=== PATIENT | female | born 1960 | race Hispanic/Latino ===

== ENCOUNTER 2022-07-16 22:33 | Inpatient (IN) | payer BC, OTHER ==
[2022-07-17] MEDS ORDERED: FUROSEMIDE 40 MG/4 ML INJ IV ONE (00:08)
[2022-07-17 00:10] LABS: Hematocrit 37.7 % (30.3-42.9); Hemoglobin 12.4 gm/dl (10.1-14.3); Mean Corpuscular HGB Conc 33 % (30-34); Mean Corpuscular Volume 91 fl (79-97); Platelet Count 385 K/mm3 (140-440); Red Blood Count 4.14 M/mm3 (3.65-5.03)
[2022-07-17 00:27] LABS: INR 0.93 (0.87-1.13)
--- NOTE | 2022-07-17 00:32 | XRay Report ---
CHEST 1 VIEW INDICATION / CLINICAL INFORMATION: Altered Mental Status STUDY TIME: 2337 COMPARISON: 02/06/2014 FINDINGS: SUPPORT DEVICES: None HEART / MEDIASTINUM: Cardiomegaly LUNGS / PLEURA: Prominent congestive changes and moderate interstitial pulmonary edema are now seen. No pneumothorax. ADDITIONAL FINDINGS: No significant additional findings. Signer Name: Elvis Osorio MD Signed: 07/17/2022 12:27 AM Workstation Name: [id number]
[2022-07-17 00:45] LABS: Band Neutrophils # (Manual) 0.4 K/mm3; Basophils % (Manual) 0 % (0.0-1.8); Platelet Estimate Consistent w Auto; Total Cells Counted 100
--- NOTE | 2022-07-17 01:51 | Cat Scan Report ---
CT head/brain wo con INDICATION / CLINICAL INFORMATION: 61 years Female; Altered Mental Status. TECHNIQUE: Routine CT head without contrast. All CT scans at this location are performed using CT dos e reduction for ALARA by means of automated exposure control. COMPARISON: None. FINDINGS: BRAIN / INTRACRANIAL CONTENTS: Small lacunar infarct is seen in the anterior gangliocapsular region o n the [id number] without diffusion imaging by MRI. Otherwise, no acute hemorrhage, mass effect, midline shift, hydrocephalus, or acute, large territori al infarct. No signs of significant atrophy or chronic infarct. There are moderate areas of decreased attenuation in the white matter of the cerebral hemispheres, as well as the gangliocapsular regions. These are nonspecific findings and may be related to microangio hiro (hypertension, diabetes, atherosclerosis), given the patient's age. CRANIOCERVICAL JUNCTION: No significant abnormality. ORBITS: No significant abnormality of visualized orbits. SINUSES / MASTOIDS: Visualized paranasal sinuses and mastoid air cells are essentially clear. ADDITIONAL FINDINGS: Subcutaneous soft tissue swelling seen in the posterior parietal region on the l eft. No signs of underlying calvarial fracture. Mild to moderate temporomandibular joint disease noted on the left. Mild seen on the right. Atherosclerotic disease is seen in the anterior circulation. IMPRESSION: 1. No focal mass, intracranial hemorrhage, hydrocephalus, or acute, large territorial infarct. Follow -up with diffusion imaging by MRI, as clinically warranted. Signer Name: Marshall Menjivar MD, III Signed: 07/17/2022 1:46 AM Workstation Name: [id number]
[2022-07-17 04:03] LABS: Alanine Aminotransferase 19 units/L (7-56); Blood Urea Nitrogen 10 mg/dL (7-17); Calcium 8.7 mg/dL (8.4-10.2); Hemolysis Index 15
[2022-07-17 04:04] LABS: BUN/Creatinine Ratio 14
--- NOTE | 2022-07-17 04:45 | Emergency Department Report ---
ED General Adult HPI - General Chief complaint: Fall Stated complaint: FALL/ALEXIS PUI?: No Time Seen by Provider: 07/16/22 23:18 Source: EMS Mode of arrival: Stretcher Limitations: No Limitations - History of Present Illness Initial comments: EMS WENT OUT FOR PT WITH A UNWITNESSED GROUND LEVEL FALL, PT ETOH, ON BLOOD THINNERS, PT HAS HEMATOMA TO THE BACK OF HEAD, BLEEDING CONTROLLED, PT IN CARE OF FAMILY, FAMILY DID NOT WITNESS FALL, UNKNOWN LOC, PT AAOX4, PT WAS 76% RA, EMS PLACED PT ON NRB 15L NOW AT 96% -: Sudden, hour(s) Location: head Severity scale (0 -10): 2 Quality: aching Consistency: constant Associated Symptoms: denies: denies other symptoms, confusion, chest pain, cough Treatments Prior to Arrival: none - Related Data Previous Rx's Medication Instructions Recorded Last Taken Type ALBUTEROL NEB's [Proventil 0.083% 2.5 mg IH TID PRN #30 neb 02/07/14 Unknown Rx NEBS] DOXYCYCLINE Hyclate [Vibramycin 100 mg PO BID #14 capsule 02/07/14 Unknown Rx CAP] oxyCODONE [roxiCODONE] 5 mg PO Q6H PRN #7 tablet 02/07/14 Unknown Rx predniSONE [Deltasone] 20 mg PO BID #8 tablet 02/07/14 Unknown Rx Allergies Allergy/AdvReac Type Severity Reaction Status Date / Time cephalexin monohydrate Allergy Unknown Verified 02/06/14 23:10 [From Keflex] Sulfa (Sulfonamide Allergy Unknown Verified 02/06/14 23:10 Antibiotics) ED Review of Systems ROS: Stated complaint: FALL/ALEXIS Other details as noted in HPI Constitutional: denies: chills, fever Eyes: denies: eye pain, eye discharge, vision change ENT: denies: ear pain, throat pain Respiratory: denies: cough, shortness of breath, wheezing Cardiovascular: denies: chest pain, palpitations Endocrine: no symptoms reported Gastrointestinal: denies: abdominal pain, nausea, diarrhea Genitourinary: denies: urgency, dysuria, discharge Musculoskeletal: denies: back pain, joint swelling, arthralgia Skin: denies: rash, lesions Neurological: denies: headache, weakness, paresthesias Psychiatric: denies: anxiety, depression Hematological/Lymphatic: denies: easy bleeding, easy bruising ED Past Medical Hx - Past Medical History Previous Medical History?: Yes Hx Congestive Heart Failure: Yes Additional medical history: Bronchitis, Pleurisy, had fluid removed from left lung - Surgical History Past Surgical History?: Yes Hx Appendectomy: Yes - Social History Smoking Status: Unknown if ever smoked Substance Use Type: Alcohol - Medications Home Medications: Home Medications Medication Instructions Recorded Confirmed Last Taken Type ALBUTEROL NEB's [Proventil 0.083% 2.5 mg IH TID PRN #30 neb 02/07/14 Unknown Rx NEBS] DOXYCYCLINE Hyclate [Vibramycin 100 mg PO BID #14 capsule 02/07/14 Unknown Rx CAP] oxyCODONE [roxiCODONE] 5 mg PO Q6H PRN #7 tablet 02/07/14 Unknown Rx predniSONE [Deltasone] 20 mg PO BID #8 tablet 02/07/14 Unknown Rx ED Physical Exam - General Limitations: No Limitations General appearance: alert, appears intoxicated - Head Head exam: Present: normocephalic, other (occipital heamtoma) - Eye Eye exam: Present: normal appearance - ENT ENT exam: Present: mucous membranes moist - Neck Neck exam: Present: normal inspection - Respiratory Respiratory exam: Present: normal lung sounds bilaterally. Absent: respiratory distress - Cardiovascular Cardiovascular Exam: Present: regular rate, normal rhythm. Absent: systolic murmur, diastolic murmur, rubs, gallop - GI/Abdominal GI/Abdominal exam: Present: soft, normal bowel sounds - Extremities Exam Extremities exam: Present: normal inspection - Back Exam Back exam: Present: normal inspection - Neurological Exam Neurological exam: Present: alert, oriented X3 - Psychiatric Psychiatric exam: Present: normal affect, normal mood - Skin Skin exam: Present: warm, dry, intact, normal color. Absent: rash ED Course Vital Signs 07/16/22 07/16/22 22:42 23:17 Temperature 98.1 F 98.0 F Pulse Rate 87 80 Respiratory 18 16 Rate Blood Pressure 150/113 143/82 O2 Sat by Pulse 96 100 Oximetry ED Medical Decision Making - Lab Data Result diagrams: 07/16/22 23:57 07/16/22 23:57 - Radiology Data Radiology results: report reviewed, image reviewed - Medical Decision Making work up showed : - normal head CT - Etoh noted , - SOB : rt given - Hyponatremia: seems acute can be secondary to chronic drinking or COPD Critical care attestation.: If time is entered above; I have spent that time in minutes in the direct care of this critically ill patient, excluding procedure time. ED Disposition Clinical Impression: Fall, Head injury, Hyponatremia, Alcohol abuse Disposition: 09 ADMITTED INPATIENT Is pt being admited?: Yes Does the pt Need Aspirin: No Condition: Stable Referrals: NADER WAYNE MD [Primary Care Provider] - 3-5 Days
[2022-07-17] MEDS ORDERED: MORPHINE 4 MG/1 ML INJ IV PRN (05:40)
[2022-07-17] MEDS ORDERED: ALBUTEROL 2.5 MG/3 ML NEBU IH PRN (05:40)
[2022-07-17] MEDS ORDERED: ONDANSETRON 4 MG/2 ML INJ IV PRN (05:40)
[2022-07-17] MEDS ORDERED: MORPHINE 2 MG/1 ML INJ IV PRN (05:40)
[2022-07-17] MEDS ORDERED: SODIUM CHLORIDE 0.9% 1000 ML 1,000 ML IV SCH (05:45)
--- NOTE | 2022-07-17 05:48 | History and Physical Report ---
History of Present Illness Date of examination: 07/17/22 Date of admission: 07/17/22 Chief complaint: Fall Difficulty in breathing History of present illness: 61 years old female with past medical history of COPD, congestive heart failure, bronchitis, pleurisy was brought to the hospital because of shortness of breath. Patient also had a unwitnessed ground-level fall. Patient is alcohol abuser and on blood thinner. Patient has a hematoma on the back of the head. Bleeding is controlled. Family did not witness the fall. Unknown LOC. Patient is now alkylator oriented x3 In the emergency room initial CT scan of the head shows no acute intracranial abnormality but patient is found to have sodium of 118 Past History Past Medical History: heart failure, hypertension, other (Bronchitis, Pleurisy, had fluid removed from left lung) Past Surgical History: appendectomy Social history: alcohol abuse Family history: hypertension Medications and Allergies Allergies Allergy/AdvReac Type Severity Reaction Status Date / Time cephalexin monohydrate Allergy Unknown Verified 02/06/14 23:10 [From Keflex] Sulfa (Sulfonamide Allergy Unknown Verified 02/06/14 23:10 Antibiotics) Home Medications Medication Instructions Recorded Confirmed Last Taken Type ALBUTEROL NEB's [Proventil 0.083% 2.5 mg IH TID PRN #30 neb 02/07/14 Unknown Rx NEBS] DOXYCYCLINE Hyclate [Vibramycin 100 mg PO BID #14 capsule 02/07/14 Unknown Rx CAP] oxyCODONE [roxiCODONE] 5 mg PO Q6H PRN #7 tablet 02/07/14 Unknown Rx predniSONE [Deltasone] 20 mg PO BID #8 tablet 02/07/14 Unknown Rx Active Meds: Active Medications Acetaminophen (Acetaminophen 325 Mg Tab) 650 mg PO Q4H PRN PRN Reason: Pain MILD(1-3)/Fever >100.5/GARDNER Albuterol (Albuterol 2.5 Mg/3 Ml Nebu) 2.5 mg IH Q3HRT PRN PRN Reason: Shortness Of Breath Albuterol/Ipratropium (Ipratropium/Albuterol Sulfate 3 Ml Ampul.Neb) 1 ampul IH Q6HRT MAIKOL Famotidine (Famotidine 20 Mg Tab) 20 mg PO BID MAIKOL Sodium Chloride (Nacl 0.9% 1000 Ml) 1,000 mls @ 100 mls/hr IV DIRECT MAIKOL Morphine Sulfate (Morphine 2 Mg/1 Ml Inj) 2 mg IV Q4H PRN PRN Reason: Pain, Moderate (4-6) Morphine Sulfate (Morphine 4 Mg/1 Ml Inj) 4 mg IV Q4H PRN PRN Reason: Pain , Severe (7-10) Ondansetron HCl (Ondansetron 4 Mg/2 Ml Inj) 4 mg IV Q8H PRN PRN Reason: Nausea And Vomiting Sodium Chloride (Sodium Chloride 0.9% 10 Ml Flush Syringe) 10 ml IV BID MAIKOL Sodium Chloride (Sodium Chloride 0.9% 10 Ml Flush Syringe) 10 ml IV PRN PRN PRN Reason: LINE FLUSH Review of Systems All systems: negative Constitutional: other (Ground-level fall, hematoma back of the head) Cardiovascular: shortness of breath, dyspnea on exertion Respiratory: shortness of breath, dyspnea on exertion Exam - Constitutional Vitals: Temp Pulse Resp BP Pulse Ox 98.0 F 80 16 143/82 100 07/16/22 23:17 07/16/22 23:17 07/16/22 23:17 07/16/22 23:17 07/16/22 23:17 General appearance: Present: no acute distress, well-nourished - EENT Eyes: Present: PERRL ENT: hearing intact, clear oral mucosa - Neck Neck: Present: supple, normal ROM - Respiratory Respiratory effort: normal Respiratory: bilateral: diminished - Cardiovascular Heart Sounds: Present: S1 & S2. Absent: rub, click - Extremities Extremities: pulses symmetrical, No edema Peripheral Pulses: within normal limits - Abdominal General gastrointestinal: Present: soft, non-tender, non-distended, normal bowel sounds Female genitourinary: Present: normal - Integumentary Integumentary: Present: clear, warm, dry - Musculoskeletal Musculoskeletal: gait normal, strength equal bilaterally - Psychiatric Psychiatric: appropriate mood/affect, intact judgment & insight - Neurologic Neurologic: CNII-XII intact, moves all extremities HEART Score - HEART Score Troponin: Troponin T < 0.010 ng/mL (0.00-0.029) 07/16/22 23:57 Results - Labs CBC & Chem 7: 07/16/22 23:57 07/16/22 23:57 Labs: Laboratory Last Values WBC 18.9 K/mm3 (4.5-11.0) H 07/16/22 23:57 RBC 4.14 M/mm3 (3.65-5.03) 07/16/22 23:57 Hgb 12.4 gm/dl (10.1-14.3) 07/16/22 23:57 Hct 37.7 % (30.3-42.9) 07/16/22 23:57 MCV 91 fl (79-97) 07/16/22 23:57 MCH 30 pg (28-32) 07/16/22 23:57 MCHC 33 % (30-34) 07/16/22 23:57 RDW 14.0 % (13.2-15.2) 07/16/22 23:57 Plt Count 385 K/mm3 (140-440) 07/16/22 23:57 Add Manual Diff Complete 07/16/22 23:57 Total Counted 100 07/16/22 23:57 Seg Neuts % (Manual) 87.0 % (40.0-70.0) H 07/16/22 23:57 Band Neutrophils % 2.0 % 07/16/22 23:57 Lymphocytes % (Manual) 6.0 % (13.4-35.0) L 07/16/22 23:57 Reactive Lymphs % (Man) 0 % 07/16/22 23:57 Monocytes % (Manual) 3.0 % (0.0-7.3) 07/16/22 23:57 Eosinophils % (Manual) 1.0 % (0.0-4.3) 07/16/22 23:57 Basophils % (Manual) 0 % (0.0-1.8) 07/16/22 23:57 Metamyelocytes % 1.0 % 07/16/22 23:57 Myelocytes % 0 % 07/16/22 23:57 Promyelocytes % 0 % 07/16/22 23:57 Blast Cells % 0 % 07/16/22 23:57 Nucleated RBC % Not Reportable 07/16/22 23:57 Seg Neutrophils # Man 16.4 K/mm3 (1.8-7.7) H 07/16/22 23:57 Band Neutrophils # 0.4 K/mm3 07/16/22 23:57 Lymphocytes # (Manual) 1.1 K/mm3 (1.2-5.4) L 07/16/22 23:57 Abs React Lymphs (Man) 0.0 K/mm3 07/16/22 23:57 Monocytes # (Manual) 0.6 K/mm3 (0.0-0.8) 07/16/22 23:57 Eosinophils # (Manual) 0.2 K/mm3 (0.0-0.4) 07/16/22 23:57 Basophils # (Manual) 0.0 K/mm3 (0.0-0.1) 07/16/22 23:57 Metamyelocytes # 0.2 K/mm3 07/16/22 23:57 Myelocytes # 0.0 K/mm3 07/16/22 23:57 Promyelocytes # 0.0 K/mm3 07/16/22 23:57 Blast Cells # 0.0 K/mm3 07/16/22 23:57 WBC Morphology Not Reportable 07/16/22 23:57 Hypersegmented Neuts Not Reportable 07/16/22 23:57 Hyposegmented Neuts Not Reportable 07/16/22 23:57 Hypogranular Neuts Not Reportable 07/16/22 23:57 Smudge Cells Not Reportable 07/16/22 23:57 Toxic Granulation Not Reportable 07/16/22 23:57 Toxic Vacuolation Not Reportable 07/16/22 23:57 Dohle Bodies Not Reportable 07/16/22 23:57 Pelger-Huet Anomaly Not Reportable 07/16/22 23:57 [place] Rods Not Reportable 07/16/22 23:57 Platelet Estimate Consistent w auto 07/16/22 23:57 Clumped Platelets Not Reportable 07/16/22 23:57 Plt Clumps, EDTA Not Reportable 07/16/22 23:57 Large Platelets Not Reportable 07/16/22 23:57 Giant Platelets Not Reportable 07/16/22 23:57 Platelet Satelliting Not Reportable 07/16/22 23:57 Plt Morphology Comment Not Reportable 07/16/22 23:57 RBC Morphology Not Reportable 07/16/22 23:57 Dimorphic RBCs Not Reportable 07/16/22 23:57 Polychromasia Not Reportable 07/16/22 23:57 Hypochromasia Not Reportable 07/16/22 23:57 Poikilocytosis Not Reportable 07/16/22 23:57 Anisocytosis Not Reportable 07/16/22 23:57 Microcytosis Not Reportable 07/16/22 23:57 Macrocytosis Not Reportable 07/16/22 23:57 Spherocytes Not Reportable 07/16/22 23:57 Pappenheimer Bodies Not Reportable 07/16/22 23:57 Sickle Cells Not Reportable 07/16/22 23:57 Target Cells Not Reportable 07/16/22 23:57 Tear Drop Cells Not Reportable 07/16/22 23:57 Ovalocytes Not Reportable 07/16/22 23:57 Helmet Cells Not Reportable 07/16/22 23:57 [place] Bodies Not Reportable 07/16/22 23:57 [place] Rings Not Reportable 07/16/22 23:57 [place] Cells Not Reportable 07/16/22 23:57 Bite Cells Not Reportable 07/16/22 23:57 Crenated Cell Not Reportable 07/16/22 23:57 Elliptocytes Not Reportable 07/16/22 23:57 Acanthocytes (Spur) Not Reportable 07/16/22 23:57 Rouleaux Not Reportable 07/16/22 23:57 Hemoglobin C Crystals Not Reportable 07/16/22 23:57 Schistocytes Not Reportable 07/16/22 23:57 Malaria parasites Not Reportable 07/16/22 23:57 Dex Bodies Not Reportable 07/16/22 23:57 Hem Pathologist Commnt No 07/16/22 23:57 PT 13.5 Sec. (12.2-14.9) 07/16/22 23:57 INR 0.93 (0.87-1.13) 07/16/22 23:57 Sodium 118 mmol/L (137-145) L* 07/16/22 23:57 Potassium 4.6 mmol/L (3.6-5.0) 07/16/22 23:57 Chloride 78.2 mmol/L (98-107) L 07/16/22 23:57 Carbon Dioxide 28 mmol/L (22-30) 07/16/22 23:57 Anion Gap 16 mmol/L 07/16/22 23:57 BUN 10 mg/dL (7-17) 07/16/22 23:57 Creatinine 0.7 mg/dL (0.6-1.2) 07/16/22 23:57 Estimated GFR > 60 ml/min 07/16/22 23:57 BUN/Creatinine Ratio 14 % 07/16/22 23:57 Glucose 114 mg/dL (65-100) H 07/16/22 23:57 Calcium 8.7 mg/dL (8.4-10.2) 07/16/22 23:57 Total Bilirubin 0.20 mg/dL (0.1-1.2) 07/16/22 23:57 AST 24 units/L (5-40) 07/16/22 23:57 ALT 19 units/L (7-56) 07/16/22 23:57 Alkaline Phosphatase 87 units/L (35-129) 07/16/22 23:57 Total Creatine Kinase 65 units/L (30-135) 07/16/22 23:57 Troponin T < 0.010 ng/mL (0.00-0.029) 07/16/22 23:57 Total Protein 6.8 g/dL (6.3-8.2) 07/16/22 23:57 Albumin 4.0 g/dL (3.9-5) 07/16/22 23:57 Albumin/Globulin Ratio 1.4 % 07/16/22 23:57 Salicylates < 0.3 mg/dL (2.8-20.0) L 07/16/22 23:57 Plasma/Serum Alcohol 0.14 % (0-0.07) H 07/16/22 23:57 - Imaging and Cardiology Chest x-ray: report reviewed CT Scan - head: report reviewed Assessment and Plan VTE prophylaxis?: Mechanical Plan of care discussed with patient/family: Yes - Patient Problems (1) Hyponatremia Current Visit: Yes Status: Acute Plan to address problem: Admit the patient to the medical floor. Normal saline at the rate of 100 cc/h. We will recheck the BMP. If needed reconsult nephrology (2) COPD (chronic obstructive pulmonary disease) Current Visit: Yes Status: Acute Plan to address problem: Oxygen per nasal cannula 3 L/min. DuoNeb via nebulizer every 4 hours. Albuterol via nebulizer every 4 hours. We will continue the home medication (3) Congestive heart failure Current Visit: Yes Status: Acute Plan to address problem: Stable. Fluid restriction. Maintain input output. Continue home medication outpatient follow-up with cardiology (4) Alcohol abuse Current Visit: Yes Status: Acute Plan to address problem: We counseled the patient regarding quit drinking. We put the patient on thiamine folic acid and banana bag daily (5) Fall Current Visit: Yes Status: Acute Plan to address problem: Patient is on fall precaution. Will consult physical therapy for evaluation. (6) Head injury Current Visit: Yes Status: Acute Plan to address problem: Initial CT scan of the head shows no acute intracranial abnormality.Patient is on fall precaution. Will consult physical therapy for evaluation. We will monitor the patient closely (7) DVT prophylaxis Current Visit: Yes Status: Acute
[2022-07-17 06:10] LABS: Color,Urine Straw (Yellow)
[2022-07-17 06:12] LABS: Granular Casts,Urine 9 /LPF; RBC,Urine < 1.0 /HPF (0.0-6.0)
[2022-07-17 06:30] LABS: Amphetamine Screen,Urine Negative; Benzodiazepines Screen,Urine Negative; Cannabinoid Screen,Urine Negative; Cocaine Screen,Urine Negative; Methadone Screen,Urine Negative; Opiate Screen,Urine Negative
[2022-07-17] MEDS: IPRATROPIUM/ALBUTEROL SULFATE 3 ML AMPUL.NEB IH SCH ×3 (08:53→20:15)
--- NOTE | 2022-07-17 09:43 | Progress Note ---
Assessment and Plan Assessment and plan: 61-year-old male patient with significant past medical history of chronic alcohol use was admitted through emergency room with ground-level fall --Acute hypoxic respiratory failure; on admission Requiring supplemental oxygen upon admission Secondary to COPD exacerbation, congestive heart failure Continue oxygen titrate O2 sats more than 90% Currently patient is on Ventimask 50% FiO2, 9 L via Ventimask Wean as tolerated Home O2 evaluation prior to discharge -- Ground-level fall Patient is on fall precaution. CT head without contrast no acute abnormality noted Physical therapy, Occupational Therapy evaluation and management DC needs, --Hyponatremia IV normal saline , closely monitor sodium and other electrolytes Consider sodium chloride oral as needed Nephrology consult if no improvement -- COPD (chronic obstructive pulmonary disease) Oxygen per nasal cannula 3 L/min. DuoNeb via nebulizer every 4 hours. Albuterol via nebulizer every 4 hours. We will continue the home medication Home O2 evaluation prior to discharge Supportive care --History of congestive heart failure: Stable. Fluid restriction. Maintain input output. Continue home medication outpatient follow-up with cardiology -- Chronic alcohol alcohol abuse Thiamine folic acid and multivitamins Strongly advised to quit alcohol intake I also advised the patient to seek alcohol rehabilitation And join alcohol Anonymous support group Patient verbalized understanding Strongly advised behavioral modification and quit alcohol intake -- Traumatic head injury/due to fall Initial CT scan of the head shows no acute intracranial abnormality. Patient is on fall precaution. Will consult physical therapy for evaluation. We will monitor the patient closely --Morbid obesity; BMI 41.7 Counseling done advised diet modification exercise as tolerated and weight reduction, And you are medically stable Advised bariatric surgical evaluation as outpatient for weight reduction program when you are medically stable --DVT prophylaxis Lovenox subcu renal dose Notes advance care planning; +35 minutes Patient's condition, tests and reports, diagnosis discussed with the patient and the family in the room Treatment plan, poor prognosis, advised to seek alcohol rehabilitation postdischarge, patient and the sister verbalized understanding Preventive health care counseling; +35 minutes Recent consequences of ongoing alcohol use discussed in detail with the patient and this sister Also discussed in detail about the alcohol withdrawal symptoms and the treatment that is available Advised to join alcohol Anonymous support group Behavioral modification and weight reduction counseling; 15 minutes Closely monitor the patient and adjust management as needed Plan of care reviewed with the patient and Prolonged care inpatient 35 minutes History Interval history: I have seen and examined the patient at the bedside Patient's chart and medications reviewed Patient is admitted with severe hyponatremia with sodium of 118 Patient has history of chronic alcohol use Patient complains of shortness of breath Patient is alert and awake Wants to go home Patient's sister is the bedside Vital signs noted Hospitalist Physical - Constitutional Vitals: Temp Pulse Resp BP Pulse Ox 97.7 F 90 19 130/103 98 07/17/22 08:43 07/17/22 08:43 07/17/22 08:43 07/17/22 08:43 07/17/22 08:54 General appearance: Present: no acute distress, well-nourished, obese (Morbidly obese) - EENT Eyes: Present: PERRL, EOM intact - Neck Neck: Present: supple, normal ROM - Respiratory Respiratory effort: normal Respiratory: bilateral: diminished, negative: rales, rhonchi, wheezing - Cardiovascular Rhythm: regular Heart Sounds: Present: S1 & S2 - Extremities Extremities: no ischemia, pulses intact - Abdominal General gastrointestinal: soft, non-tender, non-distended, normal bowel sounds - Integumentary Integumentary: Present: clear, warm - Psychiatric Psychiatric: appropriate mood/affect, cooperative - Neurologic Neurologic: CNII-XII intact, moves all extremities HEART Score - HEART Score Troponin: Troponin T < 0.010 ng/mL (0.00-0.029) 07/16/22 23:57 Results - Labs CBC & Chem 7: 07/16/22 23:57 07/16/22 23:57 Labs: Laboratory Last Values WBC 18.9 K/mm3 (4.5-11.0) H 07/16/22 23:57 RBC 4.14 M/mm3 (3.65-5.03) 07/16/22 23:57 Hgb 12.4 gm/dl (10.1-14.3) 07/16/22 23:57 Hct 37.7 % (30.3-42.9) 07/16/22 23:57 MCV 91 fl (79-97) 07/16/22 23:57 MCH 30 pg (28-32) 07/16/22 23:57 MCHC 33 % (30-34) 07/16/22 23:57 RDW 14.0 % (13.2-15.2) 07/16/22 23:57 Plt Count 385 K/mm3 (140-440) 07/16/22 23:57 Add Manual Diff Complete 07/16/22 23:57 Total Counted 100 07/16/22 23:57 Seg Neuts % (Manual) 87.0 % (40.0-70.0) H 07/16/22 23:57 Band Neutrophils % 2.0 % 07/16/22 23:57 Lymphocytes % (Manual) 6.0 % (13.4-35.0) L 07/16/22 23:57 Reactive Lymphs % (Man) 0 % 07/16/22 23:57 Monocytes % (Manual) 3.0 % (0.0-7.3) 07/16/22 23:57 Eosinophils % (Manual) 1.0 % (0.0-4.3) 07/16/22 23:57 Basophils % (Manual) 0 % (0.0-1.8) 07/16/22 23:57 Metamyelocytes % 1.0 % 07/16/22 23:57 Myelocytes % 0 % 07/16/22 23:57 Promyelocytes % 0 % 07/16/22 23:57 Blast Cells % 0 % 07/16/22 23:57 Nucleated RBC % Not Reportable 07/16/22 23:57 Seg Neutrophils # Man 16.4 K/mm3 (1.8-7.7) H 07/16/22 23:57 Band Neutrophils # 0.4 K/mm3 07/16/22 23:57 Lymphocytes # (Manual) 1.1 K/mm3 (1.2-5.4) L 07/16/22 23:57 Abs React Lymphs (Man) 0.0 K/mm3 07/16/22 23:57 Monocytes # (Manual) 0.6 K/mm3 (0.0-0.8) 07/16/22 23:57 Eosinophils # (Manual) 0.2 K/mm3 (0.0-0.4) 07/16/22 23:57 Basophils # (Manual) 0.0 K/mm3 (0.0-0.1) 07/16/22 23:57 Metamyelocytes # 0.2 K/mm3 07/16/22 23:57 Myelocytes # 0.0 K/mm3 07/16/22 23:57 Promyelocytes # 0.0 K/mm3 07/16/22 23:57 Blast Cells # 0.0 K/mm3 07/16/22 23:57 WBC Morphology Not Reportable 07/16/22 23:57 Hypersegmented Neuts Not Reportable 07/16/22 23:57 Hyposegmented Neuts Not Reportable 07/16/22 23:57 Hypogranular Neuts Not Reportable 07/16/22 23:57 Smudge Cells Not Reportable 07/16/22 23:57 Toxic Granulation Not Reportable 07/16/22 23:57 Toxic Vacuolation Not Reportable 07/16/22 23:57 Dohle Bodies Not Reportable 07/16/22 23:57 Pelger-Huet Anomaly Not Reportable 07/16/22 23:57 [place] Rods Not Reportable 07/16/22 23:57 Platelet Estimate Consistent w auto 07/16/22 23:57 Clumped Platelets Not Reportable 07/16/22 23:57 Plt Clumps, EDTA Not Reportable 07/16/22 23:57 Large Platelets Not Reportable 07/16/22 23:57 Giant Platelets Not Reportable 07/16/22 23:57 Platelet Satelliting Not Reportable 07/16/22 23:57 Plt Morphology Comment Not Reportable 07/16/22 23:57 RBC Morphology Not Reportable 07/16/22 23:57 Dimorphic RBCs Not Reportable 07/16/22 23:57 Polychromasia Not Reportable 07/16/22 23:57 Hypochromasia Not Reportable 07/16/22 23:57 Poikilocytosis Not Reportable 07/16/22 23:57 Anisocytosis Not Reportable 07/16/22 23:57 Microcytosis Not Reportable 07/16/22 23:57 Macrocytosis Not Reportable 07/16/22 23:57 Spherocytes Not Reportable 07/16/22 23:57 Pappenheimer Bodies Not Reportable 07/16/22 23:57 Sickle Cells Not Reportable 07/16/22 23:57 Target Cells Not Reportable 07/16/22 23:57 Tear Drop Cells Not Reportable 07/16/22 23:57 Ovalocytes Not Reportable 07/16/22 23:57 Helmet Cells Not Reportable 07/16/22 23:57 Concepcion-[place] Bodies Not Reportable 07/16/22 23:57 [place] Rings Not Reportable 07/16/22 23:57 [place] Cells Not Reportable 07/16/22 23:57 Bite Cells Not Reportable 07/16/22 23:57 Crenated Cell Not Reportable 07/16/22 23:57 Elliptocytes Not Reportable 07/16/22 23:57 Acanthocytes (Spur) Not Reportable 07/16/22 23:57 Rouleaux Not Reportable 07/16/22 23:57 Hemoglobin C Crystals Not Reportable 07/16/22 23:57 Schistocytes Not Reportable 07/16/22 23:57 Malaria parasites Not Reportable 07/16/22 23:57 Dex Bodies Not Reportable 07/16/22 23:57 Hem Pathologist Commnt No 07/16/22 23:57 PT 13.5 Sec. (12.2-14.9) 07/16/22 23:57 INR 0.93 (0.87-1.13) 07/16/22 23:57 Sodium 118 mmol/L (137-145) L* 07/16/22 23:57 Potassium 4.6 mmol/L (3.6-5.0) 07/16/22 23:57 Chloride 78.2 mmol/L (98-107) L 07/16/22 23:57 Carbon Dioxide 28 mmol/L (22-30) 07/16/22 23:57 Anion Gap 16 mmol/L 07/16/22 23:57 BUN 10 mg/dL (7-17) 07/16/22 23:57 Creatinine 0.7 mg/dL (0.6-1.2) 07/16/22 23:57 Estimated GFR > 60 ml/min 07/16/22 23:57 BUN/Creatinine Ratio 14 % 07/16/22 23:57 Glucose 114 mg/dL (65-100) H 07/16/22 23:57 Calcium 8.7 mg/dL (8.4-10.2) 07/16/22 23:57 Total Bilirubin 0.20 mg/dL (0.1-1.2) 07/16/22 23:57 AST 24 units/L (5-40) 07/16/22 23:57 ALT 19 units/L (7-56) 07/16/22 23:57 Alkaline Phosphatase 87 units/L (35-129) 07/16/22 23:57 Total Creatine Kinase 65 units/L (30-135) 07/16/22 23:57 Troponin T < 0.010 ng/mL (0.00-0.029) 07/16/22 23:57 Total Protein 6.8 g/dL (6.3-8.2) 07/16/22 23:57 Albumin 4.0 g/dL (3.9-5) 07/16/22 23:57 Albumin/Globulin Ratio 1.4 % 07/16/22 23:57 Urine Color Straw (Yellow) 07/17/22 06:02 Urine Turbidity Clear (Clear) 07/17/22 06:02 Specific [place] (Man) 1.020 (1.003-1.030) 07/17/22 06:02 Ur Protein (Man) 1+ mg/dL (Negative) 07/17/22 06:02 Ur Ketones (Man) Negative (Negative) 07/17/22 06:02 Ur Nitrite (Man) Negative (Negative) 07/17/22 06:02 Urine Bilirubin (Man) Negative (Negative) 07/17/22 06:02 Leukocyte Esterase (Man) Negative (Negative) 07/17/22 06:02 Urine WBC (Auto) 1.0 /HPF (0.0-6.0) 07/17/22 06:02 Urine RBC (Auto) < 1.0 /HPF (0.0-6.0) 07/17/22 06:02 U Epithel Cells (Auto) 1.0 /HPF (0-13.0) 07/17/22 06:02 Urine RBC (Manual) Trace (Negative) 07/17/22 06:02 Granular Casts 9 /LPF 07/17/22 06:02 Salicylates < 0.3 mg/dL (2.8-20.0) L 07/16/22 23:57 Urine Opiates Screen Negative 07/17/22 06:02 Urine Methadone Screen Negative 07/17/22 06:02 Ur Barbiturates Screen Negative 07/17/22 06:02 Ur Phencyclidine Scrn Negative 07/17/22 06:02 Ur Amphetamines Screen Negative 07/17/22 06:02 U Benzodiazepines Scrn Negative 07/17/22 06:02 Urine Cocaine Screen Negative 07/17/22 06:02 U Marijuana (THC) Screen Negative 07/17/22 06:02 Drugs of Abuse Note Disclamer 07/17/22 06:02 Plasma/Serum Alcohol 0.14 % (0-0.07) H 07/16/22 23:57 Active Medications - Current Medications Current Medications: Generic Name Dose Route Start Last Admin Trade Name Freq PRN Reason Stop Dose Admin Acetaminophen 650 mg 07/17/22 05:40 Acetaminophen 325 Mg Tab PO Q4H PRN Pain MILD(1-3)/Fever >100.5/[place] Albuterol 2.5 mg 07/17/22 05:40 Albuterol 2.5 Mg/3 Ml Nebu IH Q3HRT PRN Shortness Of Breath Albuterol/Ipratropium 1 ampul 07/17/22 08:00 07/17/22 08:53 Ipratropium/Albuterol Sulfate 3 Ml Ampul.Neb IH 1 ampul Q6HRT MAIKOL Administration Famotidine 20 mg 07/17/22 10:00 Famotidine 20 Mg Tab PO BID MAIKOL Sodium Chloride 1,000 mls @ 100 mls/hr 07/17/22 05:45 Nacl 0.9% 1000 Ml IV DIRECT MAIKOL Morphine Sulfate 2 mg 07/17/22 05:40 Morphine 2 Mg/1 Ml Inj IV Q4H PRN Pain, Moderate (4-6) Morphine Sulfate 4 mg 07/17/22 05:40 Morphine 4 Mg/1 Ml Inj IV Q4H PRN Pain , Severe (7-10) Ondansetron HCl 4 mg 07/17/22 05:40 Ondansetron 4 Mg/2 Ml Inj IV Q8H PRN Nausea And Vomiting Sodium Chloride 10 ml 07/17/22 10:00 Sodium Chloride 0.9% 10 Ml Flush Syringe IV BID MAIKOL Sodium Chloride 10 ml 07/17/22 05:40 Sodium Chloride 0.9% 10 Ml Flush Syringe IV PRN PRN LINE FLUSH
[2022-07-17] MEDS: ACETAMINOPHEN 325 MG TAB PO PRN (12:42)
[2022-07-17] MEDS: FAMOTIDINE 20 MG TAB PO SCH ×2 (12:47→22:14)
[2022-07-17] MEDS: SODIUM CHLORIDE 1 GM TAB PO SCH (22:14)
[2022-07-17 22:49] LABS: Blood Urea Nitrogen 6 mg/dL (7-17); Hemolysis Index 8
[2022-07-17 22:56] LABS: BUN/Creatinine Ratio 12
[2022-07-18] MEDS: IPRATROPIUM/ALBUTEROL SULFATE 3 ML AMPUL.NEB IH SCH ×4 (02:47→19:24)
[2022-07-18] MEDS: FAMOTIDINE 20 MG TAB PO SCH ×2 (10:20→21:10)
[2022-07-18] MEDS: SODIUM CHLORIDE 1 GM TAB PO SCH ×2 (10:20→21:09)
--- NOTE | 2022-07-18 10:59 | Progress Note ---
Assessment and Plan Assessment and plan: 61-year-old male patient with significant past medical history of chronic alcohol use was admitted through emergency room with ground-level fall --Acute hypoxic respiratory failure; on admission Requiring supplemental oxygen upon admission Today patient is requiring BiPAP/Ventimask Ventimask Secondary to COPD exacerbation, congestive heart failure Continue oxygen titrate O2 sats more than 90% Currently patient is on Ventimask 50% FiO2, 9 L via Ventimask Wean as tolerated Home O2 evaluation prior to discharge -- Ground-level fall Patient is on fall precaution. CT head without contrast no acute abnormality noted Physical therapy, Occupational Therapy evaluation and management DC needs, --Hyponatremia IV normal saline , closely monitor sodium and other electrolytes Consider sodium chloride oral as needed Nephrology consult if no improvement -- COPD (chronic obstructive pulmonary disease) Oxygen per nasal cannula 3 L/min. DuoNeb via nebulizer every 4 hours. Albuterol via nebulizer every 4 hours. We will continue the home medication Home O2 evaluation prior to discharge Supportive care --History of congestive heart failure: Stable. Fluid restriction. Maintain input output. Continue home medication outpatient follow-up with cardiology -- Chronic alcohol alcohol abuse Thiamine folic acid and multivitamins Strongly advised to quit alcohol intake I also advised the patient to seek alcohol rehabilitation And join alcohol Anonymous support group Patient verbalized understanding Strongly advised behavioral modification and quit alcohol intake -- Traumatic head injury/due to fall Initial CT scan of the head shows no acute intracranial abnormality. Patient is on fall precaution. Will consult physical therapy for evaluation. We will monitor the patient closely --Morbid obesity; BMI 41.7 Counseling done advised diet modification exercise as tolerated and weight reduction, And you are medically stable Advised bariatric surgical evaluation as outpatient for weight reduction program when you are medically stable --DVT prophylaxis Lovenox subcu renal dose Advance care planning; +35 minutes Patient's condition, tests and reports, diagnosis discussed with the patient and the family in the room Treatment plan, poor prognosis, advised to seek alcohol rehabilitation postdischarge, patient and the sister verbalized understanding Preventive health care counseling; +35 minutes Recent consequences of ongoing alcohol use discussed in detail with the patient and this sister Also discussed in detail about the alcohol withdrawal symptoms and the treatment that is available Advised to join alcohol Anonymous support group Behavioral modification and weight reduction counseling; 15 minutes Closely monitor the patient and adjust management as needed Plan of care reviewed with the patient and Prolonged care inpatient 35 minutes History Interval history: I have seen and examined the patient at the bedside Patient's chart and medications reviewed Patient has been short of breath requiring BiPAP Patient is in mild distress Vital signs reviewed Hospitalist Physical - Constitutional Vitals: Temp Pulse Resp BP Pulse Ox 98.0 F 107 H 20 159/74 98 07/18/22 03:42 07/18/22 09:16 07/18/22 09:16 07/18/22 08:24 07/18/22 09:17 General appearance: Present: severe distress, well-nourished, obese (Morbidly obese), other (Shortness of breath, on BiPAP) - EENT Eyes: Present: PERRL, EOM intact - Neck Neck: Present: supple, normal ROM - Respiratory Respiratory effort: normal Respiratory: bilateral: diminished, negative: rales, rhonchi, wheezing - Cardiovascular Rhythm: regular Heart Sounds: Present: S1 & S2 - Extremities Extremities: no ischemia Extremity abnormal: edema - Abdominal General gastrointestinal: soft, non-tender, non-distended, normal bowel sounds - Integumentary Integumentary: Present: clear, warm - Psychiatric Psychiatric: cooperative, other (Anxious) - Neurologic Neurologic: moves all extremities HEART Score - HEART Score Troponin: Troponin T < 0.010 ng/mL (0.00-0.029) 07/16/22 23:57 Results - Labs CBC & Chem 7: 07/18/22 10:02 07/19/22 11:40 Labs: Laboratory Last Values WBC 18.9 K/mm3 (4.5-11.0) H 07/16/22 23:57 RBC 4.14 M/mm3 (3.65-5.03) 07/16/22 23:57 Hgb 12.4 gm/dl (10.1-14.3) 07/16/22 23:57 Hct 37.7 % (30.3-42.9) 07/16/22 23:57 MCV 91 fl (79-97) 07/16/22 23:57 MCH 30 pg (28-32) 07/16/22 23:57 MCHC 33 % (30-34) 07/16/22 23:57 RDW 14.0 % (13.2-15.2) 07/16/22 23:57 Plt Count 385 K/mm3 (140-440) 07/16/22 23:57 Add Manual Diff Complete 07/16/22 23:57 Total Counted 100 07/16/22 23:57 Seg Neuts % (Manual) 87.0 % (40.0-70.0) H 07/16/22 23:57 Band Neutrophils % 2.0 % 07/16/22 23:57 Lymphocytes % (Manual) 6.0 % (13.4-35.0) L 07/16/22 23:57 Reactive Lymphs % (Man) 0 % 07/16/22 23:57 Monocytes % (Manual) 3.0 % (0.0-7.3) 07/16/22 23:57 Eosinophils % (Manual) 1.0 % (0.0-4.3) 07/16/22 23:57 Basophils % (Manual) 0 % (0.0-1.8) 07/16/22 23:57 Metamyelocytes % 1.0 % 07/16/22 23:57 Myelocytes % 0 % 07/16/22 23:57 Promyelocytes % 0 % 07/16/22 23:57 Blast Cells % 0 % 07/16/22 23:57 Nucleated RBC % Not Reportable 07/16/22 23:57 Seg Neutrophils # Man 16.4 K/mm3 (1.8-7.7) H 07/16/22 23:57 Band Neutrophils # 0.4 K/mm3 07/16/22 23:57 Lymphocytes # (Manual) 1.1 K/mm3 (1.2-5.4) L 07/16/22 23:57 Abs React Lymphs (Man) 0.0 K/mm3 07/16/22 23:57 Monocytes # (Manual) 0.6 K/mm3 (0.0-0.8) 07/16/22 23:57 Eosinophils # (Manual) 0.2 K/mm3 (0.0-0.4) 07/16/22 23:57 Basophils # (Manual) 0.0 K/mm3 (0.0-0.1) 07/16/22 23:57 Metamyelocytes # 0.2 K/mm3 07/16/22 23:57 Myelocytes # 0.0 K/mm3 07/16/22 23:57 Promyelocytes # 0.0 K/mm3 07/16/22 23:57 Blast Cells # 0.0 K/mm3 07/16/22 23:57 WBC Morphology Not Reportable 07/16/22 23:57 Hypersegmented Neuts Not Reportable 07/16/22 23:57 Hyposegmented Neuts Not Reportable 07/16/22 23:57 Hypogranular Neuts Not Reportable 07/16/22 23:57 Smudge Cells Not Reportable 07/16/22 23:57 Toxic Granulation Not Reportable 07/16/22 23:57 Toxic Vacuolation Not Reportable 07/16/22 23:57 Dohle Bodies Not Reportable 07/16/22 23:57 Pelger-Huet Anomaly Not Reportable 07/16/22 23:57 [place] Rods Not Reportable 07/16/22 23:57 Platelet Estimate Consistent w auto 07/16/22 23:57 Clumped Platelets Not Reportable 07/16/22 23:57 Plt Clumps, EDTA Not Reportable 07/16/22 23:57 Large Platelets Not Reportable 07/16/22 23:57 Giant Platelets Not Reportable 07/16/22 23:57 Platelet Satelliting Not Reportable 07/16/22 23:57 Plt Morphology Comment Not Reportable 07/16/22 23:57 RBC Morphology Not Reportable 07/16/22 23:57 Dimorphic RBCs Not Reportable 07/16/22 23:57 Polychromasia Not Reportable 07/16/22 23:57 Hypochromasia Not Reportable 07/16/22 23:57 Poikilocytosis Not Reportable 07/16/22 23:57 Anisocytosis Not Reportable 07/16/22 23:57 Microcytosis Not Reportable 07/16/22 23:57 Macrocytosis Not Reportable 07/16/22 23:57 Spherocytes Not Reportable 07/16/22 23:57 Pappenheimer Bodies Not Reportable 07/16/22 23:57 Sickle Cells Not Reportable 07/16/22 23:57 Target Cells Not Reportable 07/16/22 23:57 Tear Drop Cells Not Reportable 07/16/22 23:57 Ovalocytes Not Reportable 07/16/22 23:57 Helmet Cells Not Reportable 07/16/22 23:57 Concepcion-[place] Bodies Not Reportable 07/16/22 23:57 [place] Rings Not Reportable 07/16/22 23:57 [place] Cells Not Reportable 07/16/22 23:57 Bite Cells Not Reportable 07/16/22 23:57 Crenated Cell Not Reportable 07/16/22 23:57 Elliptocytes Not Reportable 07/16/22 23:57 Acanthocytes (Spur) Not Reportable 07/16/22 23:57 Rouleaux Not Reportable 07/16/22 23:57 Hemoglobin C Crystals Not Reportable 07/16/22 23:57 Schistocytes Not Reportable 07/16/22 23:57 Malaria parasites Not Reportable 07/16/22 23:57 Dex Bodies Not Reportable 07/16/22 23:57 Hem Pathologist Commnt No 07/16/22 23:57 PT 13.5 Sec. (12.2-14.9) 07/16/22 23:57 INR 0.93 (0.87-1.13) 07/16/22 23:57 Sodium 130 mmol/L (137-145) L D 07/17/22 22:18 Potassium 4.5 mmol/L (3.6-5.0) 07/17/22 22:18 Chloride 90.9 mmol/L (98-107) L 07/17/22 22:18 Carbon Dioxide 31 mmol/L (22-30) H 07/17/22 22:18 Anion Gap 13 mmol/L 07/17/22 22:18 BUN 6 mg/dL (7-17) L 07/17/22 22:18 Creatinine 0.5 mg/dL (0.6-1.2) L 07/17/22 22:18 Estimated GFR > 60 ml/min 07/17/22 22:18 BUN/Creatinine Ratio 12 % 07/17/22 22:18 Glucose 120 mg/dL (65-100) H 07/17/22 22:18 Calcium 8.0 mg/dL (8.4-10.2) L 07/17/22 22:18 Total Bilirubin 0.20 mg/dL (0.1-1.2) 07/16/22 23:57 AST 24 units/L (5-40) 07/16/22 23:57 ALT 19 units/L (7-56) 07/16/22 23:57 Alkaline Phosphatase 87 units/L (35-129) 07/16/22 23:57 Total Creatine Kinase 65 units/L (30-135) 07/16/22 23:57 Troponin T < 0.010 ng/mL (0.00-0.029) 07/16/22 23:57 Total Protein 6.8 g/dL (6.3-8.2) 07/16/22 23:57 Albumin 4.0 g/dL (3.9-5) 07/16/22 23:57 Albumin/Globulin Ratio 1.4 % 07/16/22 23:57 Urine Color Straw (Yellow) 07/17/22 06:02 Urine Turbidity Clear (Clear) 07/17/22 06:02 Specific [place] (Man) 1.020 (1.003-1.030) 07/17/22 06:02 Ur Protein (Man) 1+ mg/dL (Negative) 07/17/22 06:02 Ur Ketones (Man) Negative (Negative) 07/17/22 06:02 Ur Nitrite (Man) Negative (Negative) 07/17/22 06:02 Urine Bilirubin (Man) Negative (Negative) 07/17/22 06:02 Leukocyte Esterase (Man) Negative (Negative) 07/17/22 06:02 Urine WBC (Auto) 1.0 /HPF (0.0-6.0) 07/17/22 06:02 Urine RBC (Auto) < 1.0 /HPF (0.0-6.0) 07/17/22 06:02 U Epithel Cells (Auto) 1.0 /HPF (0-13.0) 07/17/22 06:02 Urine RBC (Manual) Trace (Negative) 07/17/22 06:02 Granular Casts 9 /LPF 07/17/22 06:02 Salicylates < 0.3 mg/dL (2.8-20.0) L 07/16/22 23:57 Urine Opiates Screen Negative 07/17/22 06:02 Urine Methadone Screen Negative 07/17/22 06:02 Ur Barbiturates Screen Negative 07/17/22 06:02 Ur Phencyclidine Scrn Negative 07/17/22 06:02 Ur Amphetamines Screen Negative 07/17/22 06:02 U Benzodiazepines Scrn Negative 07/17/22 06:02 Urine Cocaine Screen Negative 07/17/22 06:02 U Marijuana (THC) Screen Negative 07/17/22 06:02 Drugs of Abuse Note Disclamer 07/17/22 06:02 Plasma/Serum Alcohol 0.14 % (0-0.07) H 07/16/22 23:57 SARS-CoV-2 (PCR) Negative (Negative) 07/17/22 12:30 Burks/IV: Voiding Method External Female Catheter Active Medications - Current Medications Current Medications: Generic Name Dose Route Start Last Admin Trade Name Freq PRN Reason Stop Dose Admin Acetaminophen 650 mg 07/17/22 05:40 07/17/22 12:42 Acetaminophen 325 Mg Tab PO 650 mg Q4H PRN Administration Pain MILD(1-3)/Fever >100.5/[place] Albuterol 2.5 mg 07/17/22 05:40 Albuterol 2.5 Mg/3 Ml Nebu IH Q3HRT PRN Shortness Of Breath Albuterol/Ipratropium 1 ampul 07/17/22 08:00 07/18/22 09:14 Ipratropium/Albuterol Sulfate 3 Ml Ampul.Neb IH 1 ampul Q6HRT MAIKOL Administration Famotidine 20 mg 07/17/22 10:00 07/18/22 10:20 Famotidine 20 Mg Tab PO 20 mg BID MAIKOL Administration Sodium Chloride 1,000 mls @ 100 mls/hr 07/17/22 05:45 07/18/22 01:42 Nacl 0.9% 1000 Ml IV 100 mls/hr DIRECT MAIKOL Administration Morphine Sulfate 2 mg 07/17/22 05:40 Morphine 2 Mg/1 Ml Inj IV Q4H PRN Pain, Moderate (4-6) Morphine Sulfate 4 mg 07/17/22 05:40 Morphine 4 Mg/1 Ml Inj IV Q4H PRN Pain , Severe (7-10) Ondansetron HCl 4 mg 07/17/22 05:40 Ondansetron 4 Mg/2 Ml Inj IV Q8H PRN Nausea And Vomiting Sodium Chloride 10 ml 07/17/22 10:00 07/18/22 10:21 Sodium Chloride 0.9% 10 Ml Flush Syringe IV 10 ml BID MAIKOL Administration Sodium Chloride 10 ml 07/17/22 05:40 Sodium Chloride 0.9% 10 Ml Flush Syringe IV PRN PRN LINE FLUSH Sodium Chloride 1 gm 07/17/22 22:00 07/18/22 10:20 Sodium Chloride 1 Gm Tab PO 1 gm BID MAIKOL Administration
[2022-07-18 11:30] LABS: BUN/Creatinine Ratio 8; Blood Urea Nitrogen 4 mg/dL (7-17); Calcium 8.2 mg/dL (8.4-10.2); Hemolysis Index 5
[2022-07-18 11:37] LABS: Hematocrit 39.2 % (30.3-42.9); Hemoglobin 12.6 gm/dl (10.1-14.3); Mean Corpuscular HGB Conc 32 % (30-34); Mean Corpuscular Volume 92 fl (79-97); Platelet Count 275 K/mm3 (140-440); Red Blood Count 4.25 M/mm3 (3.65-5.03); Red Cell Distribution Width 14.3 % (13.2-15.2)
[2022-07-18 14:42] LABS: Basophils % (Manual) 0 % (0.0-1.8); Eosinophils % (Manual) 0 % (0.0-4.3); Hypochromasia 1+; Platelet Estimate Consistent w Auto; Stomatocytes 1+; Total Cells Counted 100
[2022-07-18] MEDS ORDERED: FUROSEMIDE 40 MG/4 ML INJ IV ONE (14:46)
[2022-07-18] MEDS: FUROSEMIDE 40 MG/4 ML INJ IV SCH (19:21)
[2022-07-18 20:07] LABS: ABG PH 7.444 pH Units (7.350-7.450)
[2022-07-18 20:08] LABS: ABG Base Excess 7.4 mmol/L (-2.0-3.0); ABG HCO3 32.6 mmol/L (20.0-26.0); ABG Methemoglobin 0.3 % (0.0-1.5); ABG Oxygen Saturation 93.9 % (95.0-99.0); ABG PCO2 48.7 mm Hg; ABG PO2 61.8 mm Hg (80.0-90.0)
--- NOTE | 2022-07-18 20:56 | Event Note ---
Date: 07/18/22 I reevaluated the patient this afternoon, patient is on BiPAP Saturating well, slightly restless due to BiPAP mask Denies chest pain, family at the bedside We will continue BiPAP titrate O2 sats to more than 90% We will try to reevaluate and consult pulmonary if needed Plan of care reviewed with the patient's nurse and the patient sister
--- NOTE | 2022-07-18 22:00 | XRay Report ---
CHEST 1 VIEW 07/18/2022 8:38 PM INDICATION / CLINICAL INFORMATION: Shortness of breath. COMPARISON: Radiograph 07/16/2022 FINDINGS: SUPPORT DEVICES: None. HEART / MEDIASTINUM: Similar appearance. LUNGS / PLEURA: Persistent but improved diffuse interstitial opacities. No pneumothorax. ADDITIONAL FINDINGS: No significant additional findings. IMPRESSION: 1. Improved but persistent diffuse interstitial prominence, likely representing pulmonary edema. Signer Name: Aleksander Downey MD Signed: 07/18/2022 9:56 PM Workstation Name: [id number]
[2022-07-19] MEDS: IPRATROPIUM/ALBUTEROL SULFATE 3 ML AMPUL.NEB IH SCH ×5 (02:00→19:39)
[2022-07-19] MEDS: FUROSEMIDE 40 MG/4 ML INJ IV SCH ×2 (06:25→18:54)
[2022-07-19] MEDS: FAMOTIDINE 20 MG TAB PO SCH ×2 (10:12→21:06)
[2022-07-19] MEDS: SODIUM CHLORIDE 1 GM TAB PO SCH ×2 (10:12→21:06)
[2022-07-19] MEDS: ACETAMINOPHEN 325 MG TAB PO PRN (10:47)
[2022-07-19 12:49] LABS: Blood Urea Nitrogen 8 mg/dL (7-17); Calcium 8.6 mg/dL (8.4-10.2); Hemolysis Index 0
[2022-07-19 12:51] LABS: BUN/Creatinine Ratio 13
--- NOTE | 2022-07-19 13:48 | Electrocardiograph Report ---
[facility] Test Date: 2022-07-18 Test Time: 13:18:59 Pat Name: YVES BLANTON Department: Room: A471 1 Gender: F [employer] Worker: GRETA : 1960 Requested By: JESSY ADAN Order Number: [id number] Reading MD: Raji Montes Measurements Intervals [place] Rate: 101 P: 49 IN: 132 QRS: 58 QRSD: 74 T: 29 QT: 310 QTc: 403 Interpretive Statements Sinus tachycardia with irregular rate Probable left atrial enlargement Low voltage, precordial leads No previous ECG available for comparison Electronically Signed On 07-19-2022 13:48:06 EDT by Raji Montes
--- NOTE | 2022-07-19 18:44 | Progress Note ---
Assessment and Plan Assessment and plan: 61-year-old male patient with significant past medical history of chronic alcohol use was admitted through emergency room with ground-level fall --Acute hypoxic respiratory failure; Requiring supplemental oxygen upon admission Due to COPD and CHF exacerbation Continue oxygen titrate O2 sats more than 90% Currently patient is on Ventimask/BiPAP as needed and at nights Continue IV diuretics, fluid restriction --Worsening acute hypoxic respiratory failure, requiring BiPAP Continue BiPAP during nights and during daytime as needed Nebulizers, IV steroids, IV antibiotics -- COPD (chronic obstructive pulmonary disease) Oxygen per nasal cannula 3 L/min. DuoNeb via nebulizer every 4 hours. Albuterol via nebulizer every 4 hours. We will continue the home medication Home O2 evaluation prior to discharge Supportive care -- Acute on chronic diastolic congestive heart failure: POA IV diuretics, input output monitoring, daily weight, fluid restriction Cardiology consult if needed --Obesity hypoventilation syndrome; Patient is requiring Ventimask/BiPAP We will consult pulmonary if no improvement Continue current management --Possible obstructive sleep apnea; Due to morbid obesity and obesity hypoventilation syndrome Needs outpatient sleep study, need CPAP/BiPAP Pulmonary consult --ground-level fall on admission Patient is on fall precaution. CT head without contrast no acute abnormality noted Physical therapy, Occupational Therapy evaluation and management DC needs, --Hyponatremia/improving IV normal saline , closely monitor sodium and other electrolytes Consider sodium chloride oral as needed Nephrology consult if no improvement --Hypomagnesemia; Replenished with mag sulfate 2 g IV Monitor electrolytes -- Chronic alcohol alcohol abuse Thiamine folic acid and multivitamins Strongly advised to quit alcohol intake I also advised the patient to seek alcohol rehabilitation And join alcohol Anonymous support group Patient verbalized understanding Strongly advised behavioral modification and quit alcohol intake -- Traumatic head injury/due to fall Initial CT scan of the head shows no acute intracranial abnormality. Patient is on fall precaution. Will consult physical therapy for evaluation. We will monitor the patient closely --Morbid obesity; BMI 41.7 Counseling done advised diet modification exercise as tolerated and weight reduction, And you are medically stable Advised bariatric surgical evaluation as outpatient for weight reduction program when you are medically stable --DVT prophylaxis Lovenox subcu renal dose Advance care planning; +35 minutes Patient's condition, tests and reports, diagnosis discussed with the patient and the family in the room Treatment plan, poor prognosis, advised to seek alcohol rehabilitation postdischarge, patient and the sister verbalized understanding Preventive health care counseling; +35 minutes Recent consequences of ongoing alcohol use discussed in detail with the patient and this sister Also discussed in detail about the alcohol withdrawal symptoms and the treatment that is available Advised to join alcohol Anonymous support group Behavioral modification and weight reduction counseling; 15 minutes Closely monitor the patient and adjust management as needed Plan of care reviewed with the patient and Brief history and Hospital course: 61-year-old morbidly obese female patient with history of COPD, congestive heart failure, bronchitis was admitted through emergency room with worsening shortness of breath and acute hypoxic respiratory failure requiring supplemental oxygen and ground-level fall patient also is a chronic alcohol user 07/18/2022; patient was severely hypoxemic, requiring BiPAP Severely edematous requiring IV Lasix 07/19/2022; continue NT failure medications, continue nebulizers IV steroids, Consider pulmonary/cardiology evaluation if no improvement Monitor for alcohol withdrawal symptoms History Interval history: I have seen and examined the patient this morning during morning rounds Patient's chart, tests and reports, current medications reviewed Patient was hypoxic requiring BiPAP the whole of last night and this morning on Ventimask Patient is more alert and awake and cheerful Patient says that she feels slightly better In mild distress Vital signs reviewed Hospitalist Physical - Constitutional Vitals: Temp Pulse Resp BP Pulse Ox 98.7 F 111 H 20 140/80 96 07/19/22 16:06 07/19/22 16:06 07/19/22 16:06 07/19/22 16:06 07/19/22 16:06 General appearance: Present: mild distress, well-nourished, obese (Morbidly obese), other (On Ventimask 15 L) - EENT Eyes: Present: PERRL, EOM intact - Neck Neck: Present: supple, normal ROM - Respiratory Respiratory effort: normal Respiratory: bilateral: diminished, rhonchi, negative: rales, wheezing - Cardiovascular Rhythm: regular Heart Sounds: Present: S1 & S2 - Extremities Extremities: no ischemia, No edema - Abdominal General gastrointestinal: soft, non-tender, non-distended, normal bowel sounds - Integumentary Integumentary: Present: clear, warm - Psychiatric Psychiatric: appropriate mood/affect, cooperative - Neurologic Neurologic: moves all extremities HEART Score - HEART Score Troponin: Troponin T < 0.010 ng/mL (0.00-0.029) 09/08/22 23:57 Results - Labs CBC & Chem 7: 07/18/22 10:02 07/19/22 11:40 Labs: Laboratory Last Values WBC 10.7 K/mm3 (4.5-11.0) 07/18/22 10:02 RBC 4.25 M/mm3 (3.65-5.03) 07/18/22 10:02 Hgb 12.6 gm/dl (10.1-14.3) 07/18/22 10:02 Hct 39.2 % (30.3-42.9) 07/18/22 10:02 MCV 92 fl (79-97) 07/18/22 10:02 MCH 30 pg (28-32) 07/18/22 10:02 MCHC 32 % (30-34) 07/18/22 10:02 RDW 14.3 % (13.2-15.2) 07/18/22 10:02 Plt Count 275 K/mm3 (140-440) 07/18/22 10:02 Add Manual Diff Complete 07/18/22 10:02 Total Counted 100 07/18/22 10:02 Seg Neutrophils % [place] 07/18/22 10:02 Seg Neuts % (Manual) 88.0 % (40.0-70.0) H 07/18/22 10:02 Band Neutrophils % 0 % 07/18/22 10:02 Lymphocytes % (Manual) 4.0 % (13.4-35.0) L 07/18/22 10:02 Reactive Lymphs % (Man) 0 % 07/18/22 10:02 Monocytes % (Manual) 8.0 % (0.0-7.3) H 07/18/22 10:02 Eosinophils % (Manual) 0 % (0.0-4.3) 07/18/22 10:02 Basophils % (Manual) 0 % (0.0-1.8) 07/18/22 10:02 Metamyelocytes % 0 % 07/18/22 10:02 Myelocytes % 0 % 07/18/22 10:02 Promyelocytes % 0 % 07/18/22 10:02 Blast Cells % 0 % 07/18/22 10:02 Nucleated RBC % Not Reportable 07/18/22 10:02 Seg Neutrophils # Man 9.4 K/mm3 (1.8-7.7) H 07/18/22 10:02 Band Neutrophils # 0.0 K/mm3 07/18/22 10:02 Lymphocytes # (Manual) 0.4 K/mm3 (1.2-5.4) L 07/18/22 10:02 Abs React Lymphs (Man) 0.0 K/mm3 07/18/22 10:02 Monocytes # (Manual) 0.9 K/mm3 (0.0-0.8) H 07/18/22 10:02 Eosinophils # (Manual) 0.0 K/mm3 (0.0-0.4) 07/18/22 10:02 Basophils # (Manual) 0.0 K/mm3 (0.0-0.1) 07/18/22 10:02 Metamyelocytes # 0.0 K/mm3 07/18/22 10:02 Myelocytes # 0.0 K/mm3 07/18/22 10:02 Promyelocytes # 0.0 K/mm3 07/18/22 10:02 Blast Cells # 0.0 K/mm3 07/18/22 10:02 WBC Morphology Not Reportable 07/18/22 10:02 Hypersegmented Neuts Not Reportable 07/18/22 10:02 Hyposegmented Neuts Not Reportable 07/18/22 10:02 Hypogranular Neuts Not Reportable 07/18/22 10:02 Smudge Cells Not Reportable 07/18/22 10:02 Toxic Granulation Not Reportable 07/18/22 10:02 Toxic Vacuolation Not Reportable 07/18/22 10:02 Dohle Bodies Not Reportable 07/18/22 10:02 Pelger-Huet Anomaly Not Reportable 07/18/22 10:02 [place] Rods Not Reportable 07/18/22 10:02 Platelet Estimate Consistent w auto 07/18/22 10:02 Clumped Platelets Not Reportable 07/18/22 10:02 Plt Clumps, EDTA Not Reportable 07/18/22 10:02 Large Platelets Not Reportable 07/18/22 10:02 Giant Platelets Not Reportable 07/18/22 10:02 Platelet Satelliting Not Reportable 07/18/22 10:02 Plt Morphology Comment Not Reportable 07/18/22 10:02 RBC Morphology Not Reportable 07/18/22 10:02 Dimorphic RBCs Not Reportable 07/18/22 10:02 Polychromasia Not Reportable 07/18/22 10:02 Hypochromasia 1+ 07/18/22 10:02 Poikilocytosis Not Reportable 07/18/22 10:02 Anisocytosis Not Reportable 07/18/22 10:02 Microcytosis Not Reportable 07/18/22 10:02 Macrocytosis Not Reportable 07/18/22 10:02 Spherocytes Not Reportable 07/18/22 10:02 Pappenheimer Bodies Not Reportable 07/18/22 10:02 Sickle Cells Not Reportable 07/18/22 10:02 Target Cells Not Reportable 07/18/22 10:02 Tear Drop Cells Not Reportable 07/18/22 10:02 Ovalocytes Not Reportable 07/18/22 10:02 Stomatocytes 1+ 07/18/22 10:02 Helmet Cells Not Reportable 07/18/22 10:02 [place] Bodies Not Reportable 07/18/22 10:02 [place] Rings Not Reportable 07/18/22 10:02 [place] Cells Not Reportable 07/18/22 10:02 Bite Cells Not Reportable 07/18/22 10:02 Crenated Cell Not Reportable 07/18/22 10:02 Elliptocytes Not Reportable 07/18/22 10:02 Acanthocytes (Spur) Not Reportable 07/18/22 10:02 Rouleaux Not Reportable 07/18/22 10:02 Hemoglobin C Crystals Not Reportable 07/18/22 10:02 Schistocytes Not Reportable 07/18/22 10:02 Malaria parasites Not Reportable 07/18/22 10:02 Dex Bodies Not Reportable 07/18/22 10:02 Hem Pathologist Commnt No 07/18/22 10:02 PT 13.5 Sec. (12.2-14.9) 07/16/22 23:57 INR 0.93 (0.87-1.13) 07/16/22 23:57 ABG pH 7.444 pH Units (7.350-7.450) 07/18/22 19:50 ABG pCO2 48.7 mm Hg 07/18/22 19:50 ABG pO2 61.8 mm Hg (80.0-90.0) L 07/18/22 19:50 ABG HCO3 32.6 mmol/L (20.0-26.0) H 07/18/22 19:50 ABG O2 Saturation 93.9 % (95.0-99.0) L 07/18/22 19:50 ABG Base Excess 7.4 mmol/L (-2.0-3.0) H 07/18/22 19:50 ABG Hemoglobin 13.0 gm/dl (12.0-16.0) 07/18/22 19:50 ABG Carboxyhemoglobin 1.6 % (0.0-5.0) 07/18/22 19:50 ABG Methemoglobin 0.3 % (0.0-1.5) 07/18/22 19:50 Oxyhemoglobin 92.1 % (95.0-99.0) L 07/18/22 19:50 FiO2 45 % 07/18/22 19:50 Sodium 134 mmol/L (137-145) L 07/19/22 11:40 Potassium 4.3 mmol/L (3.6-5.0) 07/19/22 11:40 Chloride 88.1 mmol/L (98-107) L 07/19/22 11:40 Carbon Dioxide 41 mmol/L (22-30) H* D 07/19/22 11:40 Anion Gap 9 mmol/L 07/19/22 11:40 BUN 8 mg/dL (7-17) 07/19/22 11:40 Creatinine 0.6 mg/dL (0.6-1.2) 07/19/22 11:40 Estimated GFR > 60 ml/min 07/19/22 11:40 BUN/Creatinine Ratio 13 % 07/19/22 11:40 Glucose 85 mg/dL (65-100) 07/19/22 11:40 POC Glucose 124 mg/dL (70-105) H 07/18/22 18:46 Calcium 8.6 mg/dL (8.4-10.2) 07/19/22 11:40 Magnesium 1.50 mg/dL (1.7-2.3) L 07/19/22 11:40 Total Bilirubin 0.20 mg/dL (0.1-1.2) 07/16/22 23:57 AST 24 units/L (5-40) 07/16/22 23:57 ALT 19 units/L (7-56) 07/16/22 23:57 Alkaline Phosphatase 87 units/L (35-129) 07/16/22 23:57 Total Creatine Kinase 65 units/L (30-135) 07/16/22 23:57 Troponin T < 0.010 ng/mL (0.00-0.029) 07/16/22 23:57 Total Protein 6.8 g/dL (6.3-8.2) 07/16/22 23:57 Albumin 4.0 g/dL (3.9-5) 07/16/22 23:57 Albumin/Globulin Ratio 1.4 % 07/16/22 23:57 Urine Color Straw (Yellow) 07/17/22 06:02 Urine Turbidity Clear (Clear) 07/17/22 06:02 Specific [place] (Man) 1.020 (1.003-1.030) 07/17/22 06:02 Ur Protein (Man) 1+ mg/dL (Negative) 07/17/22 06:02 Ur Ketones (Man) Negative (Negative) 07/17/22 06:02 Ur Nitrite (Man) Negative (Negative) 07/17/22 06:02 Urine Bilirubin (Man) Negative (Negative) 07/17/22 06:02 Leukocyte Esterase (Man) Negative (Negative) 07/17/22 06:02 Urine WBC (Auto) 1.0 /HPF (0.0-6.0) 07/17/22 06:02 Urine RBC (Auto) < 1.0 /HPF (0.0-6.0) 07/17/22 06:02 U Epithel Cells (Auto) 1.0 /HPF (0-13.0) 07/17/22 06:02 Urine RBC (Manual) Trace (Negative) 07/17/22 06:02 Granular Casts 9 /LPF 07/17/22 06:02 Salicylates < 0.3 mg/dL (2.8-20.0) L 07/16/22 23:57 Urine Opiates Screen Negative 07/17/22 06:02 Urine Methadone Screen Negative 07/17/22 06:02 Ur Barbiturates Screen Negative 07/17/22 06:02 Ur Phencyclidine Scrn Negative 07/17/22 06:02 Ur Amphetamines Screen Negative 07/17/22 06:02 U Benzodiazepines Scrn Negative 07/17/22 06:02 Urine Cocaine Screen Negative 07/17/22 06:02 U Marijuana (THC) Screen Negative 07/17/22 06:02 Drugs of Abuse Note Disclamer 07/17/22 06:02 Plasma/Serum Alcohol 0.14 % (0-0.07) H 07/16/22 23:57 SARS-CoV-2 (PCR) Negative (Negative) 07/17/22 12:30 Burks/IV: Voiding Method External Female Catheter Active Medications - Current Medications Current Medications: Generic Name Dose Route Start Last Admin Trade Name Freq PRN Reason Stop Dose Admin Acetaminophen 650 mg 07/17/22 05:40 07/19/22 10:47 Acetaminophen 325 Mg Tab PO 650 mg Q4H PRN Administration Pain MILD(1-3)/Fever >100.5/GARDNER Albuterol 2.5 mg 07/17/22 05:40 07/18/22 14:49 Albuterol 2.5 Mg/3 Ml Nebu IH 2.5 mg Q3HRT PRN Administration Shortness Of Breath Albuterol/Ipratropium 1 ampul 07/17/22 08:00 07/19/22 15:15 Ipratropium/Albuterol Sulfate 3 Ml Ampul.Neb IH 1 ampul Q6HRT MAIKOL Administration Famotidine 20 mg 07/17/22 10:00 07/19/22 10:12 Famotidine 20 Mg Tab PO 20 mg BID MAIKOL Administration Furosemide 40 mg 07/18/22 18:00 07/19/22 06:25 Furosemide 40 Mg/4 Ml Inj IV 40 mg 0600,1800 MAIKOL Administration Morphine Sulfate 2 mg 07/17/22 05:40 Morphine 2 Mg/1 Ml Inj IV Q4H PRN Pain, Moderate (4-6) Morphine Sulfate 4 mg 07/17/22 05:40 Morphine 4 Mg/1 Ml Inj IV Q4H PRN Pain , Severe (7-10) Ondansetron HCl 4 mg 07/17/22 05:40 Ondansetron 4 Mg/2 Ml Inj IV Q8H PRN Nausea And Vomiting Sodium Chloride 10 ml 07/17/22 10:00 07/19/22 10:13 Sodium Chloride 0.9% 10 Ml Flush Syringe IV 10 ml BID MAIKOL Administration Sodium Chloride 10 ml 07/17/22 05:40 Sodium Chloride 0.9% 10 Ml Flush Syringe IV PRN PRN LINE FLUSH Sodium Chloride 1 gm 07/17/22 22:00 07/19/22 10:12 Sodium Chloride 1 Gm Tab PO 1 gm BID MAIKOL Administration
[2022-07-19] MEDS ORDERED: MAGNESIUM SULFATE 2 GM/50 ML BAG IV ONE (18:52)
[2022-07-19] MEDS: methylPREDNISolone Sod Succinate 40 MG/1 ML INJ IV SCH (21:06)
[2022-07-20] MEDS: IPRATROPIUM/ALBUTEROL SULFATE 3 ML AMPUL.NEB IH SCH ×4 (01:01→21:50)
[2022-07-20] MEDS: FUROSEMIDE 40 MG/4 ML INJ IV SCH ×2 (05:20→20:02)
[2022-07-20] MEDS: methylPREDNISolone Sod Succinate 40 MG/1 ML INJ IV SCH ×3 (05:20→21:54)
[2022-07-20 08:57] LABS: Blood Urea Nitrogen 9 mg/dL (7-17); Calcium 8.5 mg/dL (8.4-10.2); Hemolysis Index 1
[2022-07-20 09:08] LABS: BUN/Creatinine Ratio 18
[2022-07-20 12:35] LABS: Blood Urea Nitrogen 12 mg/dL (7-17); Hemolysis Index 7
[2022-07-20] MEDS: SODIUM CHLORIDE 1 GM TAB PO SCH ×2 (12:43→21:54)
[2022-07-20] MEDS: FAMOTIDINE 20 MG TAB PO SCH ×2 (12:43→21:54)
[2022-07-20 12:52] LABS: BUN/Creatinine Ratio 24
--- NOTE | 2022-07-20 13:35 | Progress Note ---
Assessment and Plan Assessment and plan: 61-year-old male patient with significant past medical history of chronic alcohol use was admitted through emergency room with ground-level fall --Acute hypoxic respiratory failure; present on admission Requiring supplemental oxygen upon admission Due to COPD and CHF exacerbation Continue oxygen titrate O2 sats more than 90% Currently patient is on Ventimask/BiPAP as needed and at nights Continue IV diuretics, fluid restriction --Worsening acute hypoxic respiratory failure, requiring BiPAP Continue BiPAP during nights and during daytime as needed Nebulizers, IV steroids, IV antibiotics -- Acute exacerbation of COPD (chronic obstructive pulmonary disease) Oxygen per nasal cannula 3 L/min. DuoNeb via nebulizer every 4 hours. Albuterol via nebulizer every 4 hours. We will continue the home medication Home O2 evaluation prior to discharge Supportive care -- Acute on chronic diastolic congestive heart failure: POA IV diuretics, input output monitoring, daily weight, fluid restriction Cardiology consult if needed --Obesity hypoventilation syndrome; Patient is requiring Ventimask/BiPAP We will consult pulmonary if no improvement Continue current management --Possible obstructive sleep apnea; Due to morbid obesity and obesity hypoventilation syndrome Needs outpatient sleep study, need CPAP/BiPAP Pulmonary consult --ground-level fall on admission Patient is on fall precaution. CT head without contrast no acute abnormality noted Physical therapy, Occupational Therapy evaluation and management DC needs, --Hyponatremia/improving IV normal saline , closely monitor sodium and other electrolytes Consider sodium chloride oral as needed Nephrology consult if no improvement --Hypomagnesemia; Replenished with mag sulfate 2 g IV Monitor electrolytes -- Chronic alcohol alcohol abuse Thiamine folic acid and multivitamins Strongly advised to quit alcohol intake I also advised the patient to seek alcohol rehabilitation And join alcohol Anonymous support group Patient verbalized understanding Strongly advised behavioral modification and quit alcohol intake -- Traumatic head injury/due to fall Initial CT scan of the head shows no acute intracranial abnormality. Patient is on fall precaution. Will consult physical therapy for evaluation. We will monitor the patient closely --Morbid obesity; BMI 41.7 Counseling done advised diet modification exercise as tolerated and weight reduction, And you are medically stable Advised bariatric surgical evaluation as outpatient for weight reduction program when you are medically stable --DVT prophylaxis Lovenox subcu renal dose Advance care planning; +35 minutes Patient's condition, tests and reports, diagnosis discussed with the patient and the family in the room Treatment plan, poor prognosis, advised to seek alcohol rehabilitation postdischarge, patient and the sister verbalized understanding Preventive health care counseling; +35 minutes Recent consequences of ongoing alcohol use discussed in detail with the patient and this sister Also discussed in detail about the alcohol withdrawal symptoms and the treatment that is available Advised to join alcohol Anonymous support group Behavioral modification and weight reduction counseling; 15 minutes Closely monitor the patient and adjust management as needed Plan of care reviewed with the patient and Brief history and Hospital course: 61-year-old morbidly obese female patient with history of COPD, congestive heart failure, bronchitis was admitted through emergency room with worsening shortness of breath and acute hypoxic respiratory failure requiring supplemental oxygen and ground-level fall patient also is a chronic alcohol user 07/18/2022; patient was severely hypoxemic, requiring BiPAP Severely edematous requiring IV Lasix 07/19/2022; continue NT failure medications, continue nebulizers IV steroids, Consider pulmonary/cardiology evaluation if no improvement Monitor for alcohol withdrawal symptoms. 07/20/2022; continue CPAP/BiPAP. Follow-up PT evaluation Consider pulmonary consult if no improvement History Interval history: I have seen and examined the patient at the bedside Patient's chart and medications reviewed No new events reported by the nursing Patient is on Ventimask, CPAP/BiPAP at night Patient feels better does not want BiPAP at nights as she feels uncomfortable Vital signs reviewed Hospitalist Physical - Constitutional Vitals: Temp Pulse Resp BP Pulse Ox 98.4 F 113 H 22 139/73 96 07/20/22 09:14 07/20/22 12:00 07/20/22 10:00 07/20/22 09:14 07/20/22 10:00 General appearance: Present: severe distress, well-nourished, obese (Morbidly obese), other (Shortness of breath, on BiPAP) - EENT Eyes: Present: PERRL, EOM intact - Neck Neck: Present: supple, normal ROM - Respiratory Respiratory effort: normal Respiratory: bilateral: diminished, rhonchi, negative: rales, wheezing - Cardiovascular Rhythm: regular Heart Sounds: Present: S1 & S2 - Extremities Extremities: no ischemia, No edema - Abdominal General gastrointestinal: soft, non-tender, non-distended, normal bowel sounds - Integumentary Integumentary: Present: clear, warm - Psychiatric Psychiatric: appropriate mood/affect, cooperative - Neurologic Neurologic: moves all extremities HEART Score - HEART Score Troponin: Troponin T < 0.010 ng/mL (0.00-0.029) 07/16/22 23:57 Results - Labs CBC & Chem 7: 07/18/22 10:02 07/20/22 Unknown Labs: Laboratory Last Values WBC 10.7 K/mm3 (4.5-11.0) 07/18/22 10:02 RBC 4.25 M/mm3 (3.65-5.03) 07/18/22 10:02 Hgb 12.6 gm/dl (10.1-14.3) 07/18/22 10:02 Hct 39.2 % (30.3-42.9) 07/18/22 10:02 MCV 92 fl (79-97) 07/18/22 10:02 MCH 30 pg (28-32) 07/18/22 10:02 MCHC 32 % (30-34) 07/18/22 10:02 RDW 14.3 % (13.2-15.2) 07/18/22 10:02 Plt Count 275 K/mm3 (140-440) 07/18/22 10:02 Add Manual Diff Complete 07/18/22 10:02 Total Counted 100 07/18/22 10:02 Seg Neutrophils % Software Asset Manager 07/18/22 10:02 Seg Neuts % (Manual) 88.0 % (40.0-70.0) H 07/18/22 10:02 Band Neutrophils % 0 % 07/18/22 10:02 Lymphocytes % (Manual) 4.0 % (13.4-35.0) L 07/18/22 10:02 Reactive Lymphs % (Man) 0 % 07/18/22 10:02 Monocytes % (Manual) 8.0 % (0.0-7.3) H 07/18/22 10:02 Eosinophils % (Manual) 0 % (0.0-4.3) 07/18/22 10:02 Basophils % (Manual) 0 % (0.0-1.8) 07/18/22 10:02 Metamyelocytes % 0 % 07/18/22 10:02 Myelocytes % 0 % 07/18/22 10:02 Promyelocytes % 0 % 07/18/22 10:02 Blast Cells % 0 % 07/18/22 10:02 Nucleated RBC % Not Reportable 07/18/22 10:02 Seg Neutrophils # Man 9.4 K/mm3 (1.8-7.7) H 07/18/22 10:02 Band Neutrophils # 0.0 K/mm3 07/18/22 10:02 Lymphocytes # (Manual) 0.4 K/mm3 (1.2-5.4) L 07/18/22 10:02 Abs React Lymphs (Man) 0.0 K/mm3 07/18/22 10:02 Monocytes # (Manual) 0.9 K/mm3 (0.0-0.8) H 07/18/22 10:02 Eosinophils # (Manual) 0.0 K/mm3 (0.0-0.4) 07/18/22 10:02 Basophils # (Manual) 0.0 K/mm3 (0.0-0.1) 07/18/22 10:02 Metamyelocytes # 0.0 K/mm3 07/18/22 10:02 Myelocytes # 0.0 K/mm3 07/18/22 10:02 Promyelocytes # 0.0 K/mm3 07/18/22 10:02 Blast Cells # 0.0 K/mm3 07/18/22 10:02 WBC Morphology Not Reportable 07/18/22 10:02 Hypersegmented Neuts Not Reportable 07/18/22 10:02 Hyposegmented Neuts Not Reportable 07/18/22 10:02 Hypogranular Neuts Not Reportable 07/18/22 10:02 Smudge Cells Not Reportable 07/18/22 10:02 Toxic Granulation Not Reportable 07/18/22 10:02 Toxic Vacuolation Not Reportable 07/18/22 10:02 Dohle Bodies Not Reportable 07/18/22 10:02 Pelger-Huet Anomaly Not Reportable 07/18/22 10:02 Savannah Rods Not Reportable 07/18/22 10:02 Platelet Estimate Consistent w auto 07/18/22 10:02 Clumped Platelets Not Reportable 07/18/22 10:02 Plt Clumps, EDTA Not Reportable 07/18/22 10:02 Large Platelets Not Reportable 07/18/22 10:02 Giant Platelets Not Reportable 07/18/22 10:02 Platelet Satelliting Not Reportable 07/18/22 10:02 Plt Morphology Comment Not Reportable 07/18/22 10:02 RBC Morphology Not Reportable 07/18/22 10:02 Dimorphic RBCs Not Reportable 07/18/22 10:02 Polychromasia Not Reportable 07/18/22 10:02 Hypochromasia 1+ 07/18/22 10:02 Poikilocytosis Not Reportable 07/18/22 10:02 Anisocytosis Not Reportable 07/18/22 10:02 Microcytosis Not Reportable 07/18/22 10:02 Macrocytosis Not Reportable 07/18/22 10:02 Spherocytes Not Reportable 07/18/22 10:02 Pappenheimer Bodies Not Reportable 07/18/22 10:02 Sickle Cells Not Reportable 07/18/22 10:02 Target Cells Not Reportable 07/18/22 10:02 Tear Drop Cells Not Reportable 07/18/22 10:02 Ovalocytes Not Reportable 07/18/22 10:02 Stomatocytes 1+ 07/18/22 10:02 Helmet Cells Not Reportable 07/18/22 10:02 [place] Bodies Not Reportable 07/18/22 10:02 Combes Rings Not Reportable 07/18/22 10:02 [place] Cells Not Reportable 07/18/22 10:02 Bite Cells Not Reportable 07/18/22 10:02 Crenated Cell Not Reportable 07/18/22 10:02 Elliptocytes Not Reportable 07/18/22 10:02 Acanthocytes (Spur) Not Reportable 07/18/22 10:02 Rouleaux Not Reportable 07/18/22 10:02 Hemoglobin C Crystals Not Reportable 07/18/22 10:02 Schistocytes Not Reportable 07/18/22 10:02 Malaria parasites Not Reportable 07/18/22 10:02 Dex Bodies Not Reportable 07/18/22 10:02 Hem Pathologist Commnt No 07/18/22 10:02 PT 13.5 Sec. (12.2-14.9) 07/16/22 23:57 INR 0.93 (0.87-1.13) 07/16/22 23:57 ABG pH 7.444 pH Units (7.350-7.450) 07/18/22 19:50 ABG pCO2 48.7 mm Hg 07/18/22 19:50 ABG pO2 61.8 mm Hg (80.0-90.0) L 07/18/22 19:50 ABG HCO3 32.6 mmol/L (20.0-26.0) H 07/18/22 19:50 ABG O2 Saturation 93.9 % (95.0-99.0) L 07/18/22 19:50 ABG Base Excess 7.4 mmol/L (-2.0-3.0) H 07/18/22 19:50 ABG Hemoglobin 13.0 gm/dl (12.0-16.0) 07/18/22 19:50 ABG Carboxyhemoglobin 1.6 % (0.0-5.0) 07/18/22 19:50 ABG Methemoglobin 0.3 % (0.0-1.5) 07/18/22 19:50 Oxyhemoglobin 92.1 % (95.0-99.0) L 07/18/22 19:50 FiO2 45 % 07/18/22 19:50 Sodium 137 mmol/L (137-145) 07/20/22 Unknown Potassium 4.5 mmol/L (3.6-5.0) 07/20/22 Unknown Chloride 87.9 mmol/L (98-107) L 07/20/22 Unknown Carbon Dioxide 42 mmol/L (22-30) H* 07/20/22 Unknown Anion Gap 12 mmol/L 07/20/22 Unknown BUN 9 mg/dL (7-17) 07/20/22 Unknown Creatinine 0.5 mg/dL (0.6-1.2) L 07/20/22 Unknown Estimated GFR > 60 ml/min 07/20/22 Unknown BUN/Creatinine Ratio 18 % 07/20/22 Unknown Glucose 151 mg/dL (65-100) H 07/20/22 Unknown POC Glucose 124 mg/dL (70-105) H 07/18/22 18:46 Calcium 8.5 mg/dL (8.4-10.2) 07/20/22 Unknown Magnesium 2.00 mg/dL (1.7-2.3) 07/20/22 Unknown Total Bilirubin 0.20 mg/dL (0.1-1.2) 07/16/22 23:57 AST 24 units/L (5-40) 07/16/22 23:57 ALT 19 units/L (7-56) 07/16/22 23:57 Alkaline Phosphatase 87 units/L (35-129) 07/16/22 23:57 Total Creatine Kinase 65 units/L (30-135) 07/16/22 23:57 Troponin T < 0.010 ng/mL (0.00-0.029) 07/16/22 23:57 Total Protein 6.8 g/dL (6.3-8.2) 07/16/22 23:57 Albumin 4.0 g/dL (3.9-5) 07/16/22 23:57 Albumin/Globulin Ratio 1.4 % 07/16/22 23:57 Urine Color Straw (Yellow) 07/17/22 06:02 Urine Turbidity Clear (Clear) 07/17/22 06:02 Specific Harmony (Man) 1.020 (1.003-1.030) 07/17/22 06:02 Ur Protein (Man) 1+ mg/dL (Negative) 07/17/22 06:02 Ur Ketones (Man) Negative (Negative) 07/17/22 06:02 Ur Nitrite (Man) Negative (Negative) 07/17/22 06:02 Urine Bilirubin (Man) Negative (Negative) 07/17/22 06:02 Leukocyte Esterase (Man) Negative (Negative) 07/17/22 06:02 Urine WBC (Auto) 1.0 /HPF (0.0-6.0) 07/17/22 06:02 Urine RBC (Auto) < 1.0 /HPF (0.0-6.0) 07/17/22 06:02 U Epithel Cells (Auto) 1.0 /HPF (0-13.0) 07/17/22 06:02 Urine RBC (Manual) Trace (Negative) 07/17/22 06:02 Granular Casts 9 /LPF 07/17/22 06:02 Salicylates < 0.3 mg/dL (2.8-20.0) L 07/16/22 23:57 Urine Opiates Screen Negative 07/17/22 06:02 Urine Methadone Screen Negative 07/17/22 06:02 Ur Barbiturates Screen Negative 07/17/22 06:02 Ur Phencyclidine Scrn Negative 07/17/22 06:02 Ur Amphetamines Screen Negative 07/17/22 06:02 U Benzodiazepines Scrn Negative 07/17/22 06:02 Urine Cocaine Screen Negative 07/17/22 06:02 U Marijuana (THC) Screen Negative 07/17/22 06:02 Drugs of Abuse Note Disclamer 07/17/22 06:02 Plasma/Serum Alcohol 0.14 % (0-0.07) H 07/16/22 23:57 SARS-CoV-2 (PCR) Negative (Negative) 07/17/22 12:30 Burks/IV: Voiding Method External Female Catheter Active Medications - Current Medications Current Medications: Generic Name Dose Route Start Last Admin Trade Name Freq PRN Reason Stop Dose Admin Acetaminophen 650 mg 07/17/22 05:40 07/19/22 10:47 Acetaminophen 325 Mg Tab PO 650 mg Q4H PRN Administration Pain MILD(1-3)/Fever >100.5/[place] Albuterol 2.5 mg 07/17/22 05:40 07/18/22 14:49 Albuterol 2.5 Mg/3 Ml Nebu IH 2.5 mg Q3HRT PRN Administration Shortness Of Breath Albuterol/Ipratropium 1 ampul 07/17/22 08:00 07/20/22 09:26 Ipratropium/Albuterol Sulfate 3 Ml Ampul.Neb IH 1 ampul Q6HRT MAIKOL Administration Famotidine 20 mg 07/17/22 10:00 07/20/22 12:43 Famotidine 20 Mg Tab PO 20 mg BID MAIKOL Administration Furosemide 40 mg 07/18/22 18:00 07/20/22 05:20 Furosemide 40 Mg/4 Ml Inj IV 40 mg 0600,1800 MAIKOL Administration Methylprednisolone Sodium Succinate 40 mg 07/19/22 22:00 07/20/22 05:20 Methylprednisolone Sod Succinate 40 Mg/1 Ml Inj IV 40 mg Q8HR MAIKOL Administration Morphine Sulfate 2 mg 07/17/22 05:40 Morphine 2 Mg/1 Ml Inj IV Q4H PRN Pain, Moderate (4-6) Morphine Sulfate 4 mg 07/17/22 05:40 Morphine 4 Mg/1 Ml Inj IV Q4H PRN Pain , Severe (7-10) Ondansetron HCl 4 mg 07/17/22 05:40 Ondansetron 4 Mg/2 Ml Inj IV Q8H PRN Nausea And Vomiting Sodium Chloride 10 ml 07/17/22 10:00 07/20/22 12:44 Sodium Chloride 0.9% 10 Ml Flush Syringe IV 10 ml BID MAIKOL Administration Sodium Chloride 10 ml 07/17/22 05:40 07/20/22 05:22 Sodium Chloride 0.9% 10 Ml Flush Syringe IV 10 ml PRN PRN Administration LINE FLUSH Sodium Chloride 1 gm 07/17/22 22:00 07/20/22 12:43 Sodium Chloride 1 Gm Tab PO 1 gm BID MAIKOL Administration
[2022-07-21] MEDS: IPRATROPIUM/ALBUTEROL SULFATE 3 ML AMPUL.NEB IH SCH ×5 (05:09→21:47)
[2022-07-21] MEDS: FUROSEMIDE 40 MG/4 ML INJ IV SCH ×2 (05:23→19:22)
[2022-07-21] MEDS: methylPREDNISolone Sod Succinate 40 MG/1 ML INJ IV SCH ×3 (05:23→21:26)
[2022-07-21] MEDS: FAMOTIDINE 20 MG TAB PO SCH ×2 (09:59→21:26)
[2022-07-21] MEDS: SODIUM CHLORIDE 1 GM TAB PO SCH ×2 (09:59→21:26)
--- NOTE | 2022-07-21 10:17 | Progress Note ---
Assessment and Plan Assessment and plan: 61-year-old male patient with significant past medical history of chronic alcohol use was admitted through emergency room with ground-level fall --Acute hypoxic respiratory failure; present on admission Requiring supplemental oxygen upon admission Due to COPD and CHF exacerbation Continue oxygen titrate O2 sats more than 90% Currently patient is on Ventimask/BiPAP as needed and at nights Continue IV diuretics, fluid restriction --acute hypoxic respiratory failure, requiring BiPAP Continue BiPAP during nights and during daytime as needed Nebulizers, IV steroids, IV antibiotics -- Acute exacerbation of COPD (chronic obstructive pulmonary disease) Oxygen per nasal cannula 3 L/min. DuoNeb via nebulizer every 4 hours. Albuterol via nebulizer every 4 hours. We will continue the home medication Home O2 evaluation prior to discharge Supportive care -- Acute on chronic diastolic congestive heart failure: POA IV diuretics, input output monitoring, daily weight, fluid restriction Cardiology consult if needed --Obesity hypoventilation syndrome; Patient is requiring Ventimask/BiPAP We will consult pulmonary if no improvement Continue current management --Possible obstructive sleep apnea; Due to morbid obesity and obesity hypoventilation syndrome Needs outpatient sleep study, need CPAP/BiPAP Pulmonary consult --ground-level fall on admission Patient is on fall precaution. CT head without contrast no acute abnormality noted Physical therapy, Occupational Therapy evaluation and management DC needs, --Hyponatremia/improving IV normal saline , closely monitor sodium and other electrolytes Consider sodium chloride oral as needed Nephrology consult if no improvement --Hypomagnesemia; Replenished with mag sulfate 2 g IV Monitor electrolytes -- Chronic alcohol alcohol abuse Thiamine folic acid and multivitamins Strongly advised to quit alcohol intake Patient verbalized understanding Strongly advised behavioral modification and quit alcohol intake -- Traumatic head injury/due to fall Initial CT scan of the head shows no acute intracranial abnormality. Patient is on fall precaution. Will consult physical therapy for evaluation. We will monitor the patient closely --Morbid obesity; BMI 41.7 Counseling done advised diet modification exercise as tolerated and weight reduction, And you are medically stable Advised bariatric surgical evaluation as outpatient for weight reduction program when you are medically stable --DVT prophylaxis Lovenox subcu renal dose History Interval history: No new issues overnight Hospitalist Physical - Constitutional Vitals: Temp Pulse Resp BP Pulse Ox 97.6 F 91 H 21 179/100 95 07/21/22 08:59 07/21/22 08:59 07/21/22 08:46 07/21/22 08:59 07/21/22 08:59 General appearance: Present: no acute distress, well-nourished, obese (Morbidly obese), other (Shortness of breath, on BiPAP) - EENT Eyes: Present: PERRL, EOM intact ENT: hearing intact, clear oral mucosa, dentition normal - Neck Neck: Present: supple, normal ROM - Respiratory Respiratory effort: normal Respiratory: bilateral: CTA - Cardiovascular Rhythm: regular Heart Sounds: Present: S1 & S2. Absent: gallop, rub - Extremities Extremities: no ischemia, No edema, Full ROM - Abdominal General gastrointestinal: soft, non-tender, non-distended, normal bowel sounds - Integumentary Integumentary: Present: clear, warm, dry - Neurologic Neurologic: CNII-XII intact, moves all extremities HEART Score - HEART Score Troponin: Troponin T < 0.010 ng/mL (0.00-0.029) 07/16/22 23:57 Results - Labs CBC & Chem 7: 07/18/22 10:02 07/20/22 Unknown Labs: Laboratory Last Values WBC 10.7 K/mm3 (4.5-11.0) 07/18/22 10:02 RBC 4.25 M/mm3 (3.65-5.03) 07/18/22 10:02 Hgb 12.6 gm/dl (10.1-14.3) 07/18/22 10:02 Hct 39.2 % (30.3-42.9) 07/18/22 10:02 MCV 92 fl (79-97) 07/18/22 10:02 MCH 30 pg (28-32) 07/18/22 10:02 MCHC 32 % (30-34) 07/18/22 10:02 RDW 14.3 % (13.2-15.2) 07/18/22 10:02 Plt Count 275 K/mm3 (140-440) 07/18/22 10:02 Add Manual Diff Complete 07/18/22 10:02 Total Counted 100 07/18/22 10:02 Seg Neutrophils % Blood Bank Attendant 07/18/22 10:02 Seg Neuts % (Manual) 88.0 % (40.0-70.0) H 07/18/22 10:02 Band Neutrophils % 0 % 07/18/22 10:02 Lymphocytes % (Manual) 4.0 % (13.4-35.0) L 07/18/22 10:02 Reactive Lymphs % (Man) 0 % 07/18/22 10:02 Monocytes % (Manual) 8.0 % (0.0-7.3) H 07/18/22 10:02 Eosinophils % (Manual) 0 % (0.0-4.3) 07/18/22 10:02 Basophils % (Manual) 0 % (0.0-1.8) 07/18/22 10:02 Metamyelocytes % 0 % 07/18/22 10:02 Myelocytes % 0 % 07/18/22 10:02 Promyelocytes % 0 % 07/18/22 10:02 Blast Cells % 0 % 07/18/22 10:02 Nucleated RBC % Not Reportable 07/18/22 10:02 Seg Neutrophils # Man 9.4 K/mm3 (1.8-7.7) H 07/18/22 10:02 Band Neutrophils # 0.0 K/mm3 07/18/22 10:02 Lymphocytes # (Manual) 0.4 K/mm3 (1.2-5.4) L 07/18/22 10:02 Abs React Lymphs (Man) 0.0 K/mm3 07/18/22 10:02 Monocytes # (Manual) 0.9 K/mm3 (0.0-0.8) H 07/18/22 10:02 Eosinophils # (Manual) 0.0 K/mm3 (0.0-0.4) 07/18/22 10:02 Basophils # (Manual) 0.0 K/mm3 (0.0-0.1) 07/18/22 10:02 Metamyelocytes # 0.0 K/mm3 07/18/22 10:02 Myelocytes # 0.0 K/mm3 07/18/22 10:02 Promyelocytes # 0.0 K/mm3 07/18/22 10:02 Blast Cells # 0.0 K/mm3 07/18/22 10:02 WBC Morphology Not Reportable 07/18/22 10:02 Hypersegmented Neuts Not Reportable 07/18/22 10:02 Hyposegmented Neuts Not Reportable 07/18/22 10:02 Hypogranular Neuts Not Reportable 07/18/22 10:02 Smudge Cells Not Reportable 07/18/22 10:02 Toxic Granulation Not Reportable 07/18/22 10:02 Toxic Vacuolation Not Reportable 07/18/22 10:02 Dohle Bodies Not Reportable 07/18/22 10:02 Pelger-Huet Anomaly Not Reportable 07/18/22 10:02 [place] Rods Not Reportable 07/18/22 10:02 Platelet Estimate Consistent w auto 07/18/22 10:02 Clumped Platelets Not Reportable 07/18/22 10:02 Plt Clumps, EDTA Not Reportable 07/18/22 10:02 Large Platelets Not Reportable 07/18/22 10:02 Giant Platelets Not Reportable 07/18/22 10:02 Platelet Satelliting Not Reportable 07/18/22 10:02 Plt Morphology Comment Not Reportable 07/18/22 10:02 RBC Morphology Not Reportable 07/18/22 10:02 Dimorphic RBCs Not Reportable 07/18/22 10:02 Polychromasia Not Reportable 07/18/22 10:02 Hypochromasia 1+ 07/18/22 10:02 Poikilocytosis Not Reportable 07/18/22 10:02 Anisocytosis Not Reportable 07/18/22 10:02 Microcytosis Not Reportable 07/18/22 10:02 Macrocytosis Not Reportable 07/18/22 10:02 Spherocytes Not Reportable 07/18/22 10:02 Pappenheimer Bodies Not Reportable 07/18/22 10:02 Sickle Cells Not Reportable 07/18/22 10:02 Target Cells Not Reportable 07/18/22 10:02 Tear Drop Cells Not Reportable 07/18/22 10:02 Ovalocytes Not Reportable 07/18/22 10:02 Stomatocytes 1+ 07/18/22 10:02 Helmet Cells Not Reportable 07/18/22 10:02 [place] Bodies Not Reportable 07/18/22 10:02 [place] Rings Not Reportable 07/18/22 10:02 [place] Cells Not Reportable 07/18/22 10:02 Bite Cells Not Reportable 07/18/22 10:02 Crenated Cell Not Reportable 07/18/22 10:02 Elliptocytes Not Reportable 07/18/22 10:02 Acanthocytes (Spur) Not Reportable 07/18/22 10:02 Rouleaux Not Reportable 07/18/22 10:02 Hemoglobin C Crystals Not Reportable 07/18/22 10:02 Schistocytes Not Reportable 07/18/22 10:02 Malaria parasites Not Reportable 07/18/22 10:02 Dex Bodies Not Reportable 07/18/22 10:02 Hem Pathologist Commnt No 07/18/22 10:02 PT 13.5 Sec. (12.2-14.9) 07/16/22 23:57 INR 0.93 (0.87-1.13) 07/16/22 23:57 ABG pH 7.444 pH Units (7.350-7.450) 07/18/22 19:50 ABG pCO2 48.7 mm Hg 07/18/22 19:50 ABG pO2 61.8 mm Hg (80.0-90.0) L 07/18/22 19:50 ABG HCO3 32.6 mmol/L (20.0-26.0) H 07/18/22 19:50 ABG O2 Saturation 93.9 % (95.0-99.0) L 07/18/22 19:50 ABG Base Excess 7.4 mmol/L (-2.0-3.0) H 07/18/22 19:50 ABG Hemoglobin 13.0 gm/dl (12.0-16.0) 07/18/22 19:50 ABG Carboxyhemoglobin 1.6 % (0.0-5.0) 07/18/22 19:50 ABG Methemoglobin 0.3 % (0.0-1.5) 07/18/22 19:50 Oxyhemoglobin 92.1 % (95.0-99.0) L 07/18/22 19:50 FiO2 45 % 07/18/22 19:50 Sodium 137 mmol/L (137-145) 07/20/22 Unknown Potassium 4.5 mmol/L (3.6-5.0) 07/20/22 Unknown Chloride 87.9 mmol/L (98-107) L 07/20/22 Unknown Carbon Dioxide 42 mmol/L (22-30) H* 07/20/22 Unknown Anion Gap 12 mmol/L 07/20/22 Unknown BUN 9 mg/dL (7-17) 07/20/22 Unknown Creatinine 0.5 mg/dL (0.6-1.2) L 07/20/22 Unknown Estimated GFR > 60 ml/min 07/20/22 Unknown BUN/Creatinine Ratio 18 % 07/20/22 Unknown Glucose 151 mg/dL (65-100) H 07/20/22 Unknown POC Glucose 124 mg/dL (70-105) H 07/18/22 18:46 Calcium 8.5 mg/dL (8.4-10.2) 07/20/22 Unknown Magnesium 2.00 mg/dL (1.7-2.3) 07/20/22 Unknown Total Bilirubin 0.20 mg/dL (0.1-1.2) 07/16/22 23:57 AST 24 units/L (5-40) 07/16/22 23:57 ALT 19 units/L (7-56) 07/16/22 23:57 Alkaline Phosphatase 87 units/L (35-129) 07/16/22 23:57 Total Creatine Kinase 65 units/L (30-135) 07/16/22 23:57 Troponin T < 0.010 ng/mL (0.00-0.029) 07/16/22 23:57 Total Protein 6.8 g/dL (6.3-8.2) 07/16/22 23:57 Albumin 4.0 g/dL (3.9-5) 07/16/22 23:57 Albumin/Globulin Ratio 1.4 % 07/16/22 23:57 Urine Color Straw (Yellow) 07/17/22 06:02 Urine Turbidity Clear (Clear) 07/17/22 06:02 Specific [place] (Man) 1.020 (1.003-1.030) 07/17/22 06:02 Ur Protein (Man) 1+ mg/dL (Negative) 07/17/22 06:02 Ur Ketones (Man) Negative (Negative) 07/17/22 06:02 Ur Nitrite (Man) Negative (Negative) 07/17/22 06:02 Urine Bilirubin (Man) Negative (Negative) 07/17/22 06:02 Leukocyte Esterase (Man) Negative (Negative) 07/17/22 06:02 Urine WBC (Auto) 1.0 /HPF (0.0-6.0) 07/17/22 06:02 Urine RBC (Auto) < 1.0 /HPF (0.0-6.0) 07/17/22 06:02 U Epithel Cells (Auto) 1.0 /HPF (0-13.0) 07/17/22 06:02 Urine RBC (Manual) Trace (Negative) 07/17/22 06:02 Granular Casts 9 /LPF 07/17/22 06:02 Salicylates < 0.3 mg/dL (2.8-20.0) L 07/16/22 23:57 Urine Opiates Screen Negative 07/17/22 06:02 Urine Methadone Screen Negative 07/17/22 06:02 Ur Barbiturates Screen Negative 07/17/22 06:02 Ur Phencyclidine Scrn Negative 07/17/22 06:02 Ur Amphetamines Screen Negative 07/17/22 06:02 U Benzodiazepines Scrn Negative 07/17/22 06:02 Urine Cocaine Screen Negative 07/17/22 06:02 U Marijuana (THC) Screen Negative 07/17/22 06:02 Drugs of Abuse Note Disclamer 07/17/22 06:02 Plasma/Serum Alcohol 0.14 % (0-0.07) H 07/16/22 23:57 SARS-CoV-2 (PCR) Negative (Negative) 07/17/22 12:30 Burks/IV: Voiding Method External Female Catheter Active Medications - Current Medications Current Medications: Generic Name Dose Route Start Last Admin Trade Name Freq PRN Reason Stop Dose Admin Acetaminophen 650 mg 07/17/22 05:40 07/19/22 10:47 Acetaminophen 325 Mg Tab PO 650 mg Q4H PRN Administration Pain MILD(1-3)/Fever >100.5/[place] Albuterol 2.5 mg 07/17/22 05:40 07/18/22 14:49 Albuterol 2.5 Mg/3 Ml Nebu IH 2.5 mg Q3HRT PRN Administration Shortness Of Breath Albuterol/Ipratropium 1 ampul 07/17/22 08:00 07/21/22 08:43 Ipratropium/Albuterol Sulfate 3 Ml Ampul.Neb IH 1 ampul Q6HRT MAIKOL Administration Famotidine 20 mg 07/17/22 10:00 07/21/22 09:59 Famotidine 20 Mg Tab PO 20 mg BID MAIKOL Administration Furosemide 40 mg 07/18/22 18:00 07/21/22 05:23 Furosemide 40 Mg/4 Ml Inj IV 40 mg 0600,1800 MAIKOL Administration Methylprednisolone Sodium Succinate 40 mg 07/19/22 22:00 07/21/22 05:23 Methylprednisolone Sod Succinate 40 Mg/1 Ml Inj IV 40 mg Q8HR MAIKOL Administration Morphine Sulfate 2 mg 07/17/22 05:40 Morphine 2 Mg/1 Ml Inj IV Q4H PRN Pain, Moderate (4-6) Morphine Sulfate 4 mg 07/17/22 05:40 Morphine 4 Mg/1 Ml Inj IV Q4H PRN Pain , Severe (7-10) Ondansetron HCl 4 mg 07/17/22 05:40 Ondansetron 4 Mg/2 Ml Inj IV Q8H PRN Nausea And Vomiting Sodium Chloride 10 ml 07/17/22 10:00 07/21/22 10:00 Sodium Chloride 0.9% 10 Ml Flush Syringe IV 10 ml BID MAIKOL Administration Sodium Chloride 10 ml 07/17/22 05:40 07/20/22 05:22 Sodium Chloride 0.9% 10 Ml Flush Syringe IV 10 ml PRN PRN Administration LINE FLUSH Sodium Chloride 1 gm 07/17/22 22:00 07/21/22 09:59 Sodium Chloride 1 Gm Tab PO 1 gm BID MAIKOL Administration
[2022-07-22] MEDS: FUROSEMIDE 40 MG/4 ML INJ IV SCH ×2 (05:14→18:03)
[2022-07-22] MEDS: methylPREDNISolone Sod Succinate 40 MG/1 ML INJ IV SCH ×3 (05:14→21:45)
[2022-07-22 06:35] LABS: Hematocrit 39.7 % (30.3-42.9); Hemoglobin 12.7 gm/dl (10.1-14.3); Mean Corpuscular HGB Conc 32 % (30-34); Mean Corpuscular Volume 92 fl (79-97); Platelet Count 321 K/mm3 (140-440); Red Blood Count 4.31 M/mm3 (3.65-5.03); Red Cell Distribution Width 14.2 % (13.2-15.2)
[2022-07-22 07:01] LABS: Blood Urea Nitrogen 24 mg/dL (7-17); Calcium 8.7 mg/dL (8.4-10.2); Hemolysis Index 24
[2022-07-22 07:15] LABS: BUN/Creatinine Ratio 34
[2022-07-22 07:32] LABS: Basophils % (Manual) 0 % (0.0-1.8); Eosinophils % (Manual) 0 % (0.0-4.3); Platelet Estimate Consistent w Auto; Total Cells Counted 100
[2022-07-22] MEDS: IPRATROPIUM/ALBUTEROL SULFATE 3 ML AMPUL.NEB IH SCH ×3 (09:56→21:18)
[2022-07-22] MEDS: SODIUM CHLORIDE 1 GM TAB PO SCH ×2 (09:59→21:45)
[2022-07-22] MEDS: FAMOTIDINE 20 MG TAB PO SCH ×2 (09:59→21:44)
--- NOTE | 2022-07-22 17:35 | Progress Note ---
Assessment and Plan --Acute hypoxic respiratory failure; present on admission Requiring supplemental oxygen upon admission Due to COPD and CHF exacerbation Continue oxygen titrate O2 sats more than 90% Currently patient is on Ventimask/BiPAP as needed and at nights Continue IV diuretics, fluid restriction. Sats 94%. --Worsening acute hypoxic respiratory failure, requiring BiPAP Continue BiPAP during nights and during daytime as needed Nebulizers, IV steroids, IV antibiotics. Appreciate pulmonology -- Acute exacerbation of COPD (chronic obstructive pulmonary disease) Oxygen per nasal cannula 3 L/min. DuoNeb via nebulizer every 4 hours. Albuterol via nebulizer every 4 hours. We will continue the home medication Home O2 evaluation prior to discharge. Awaiting evaluation for home O2. Supportive care -- Acute on chronic diastolic congestive heart failure: POA IV diuretics, input output monitoring, daily weight, fluid restriction Cardiology consult if needed --Obesity hypoventilation syndrome; Patient is requiring Ventimask/BiPAP We will consult pulmonary if no improvement Continue current management Will benefit from dietary management. Consider bariatric evaluation as outpatient. --Possible obstructive sleep apnea; Due to morbid obesity and obesity hypoventilation syndrome Needs outpatient sleep study, need CPAP/BiPAP Pulmonary consult --ground-level fall on admission Patient is on fall precaution. CT head without contrast no acute abnormality noted Physical therapy, Occupational Therapy evaluation and management DC needs, --Hyponatremia/improving IV normal saline , closely monitor sodium and other electrolytes Consider sodium chloride oral as needed Nephrology consult if no improvement --Hypomagnesemia; Replenished with mag sulfate 2 g IV Monitor electrolytes -- Chronic alcohol alcohol abuse Thiamine folic acid and multivitamins Strongly advised to quit alcohol intake Long discussion with patient states she will stop drinking now. I also advised the patient to seek alcohol rehabilitation And join alcohol Anonymous support group Patient verbalized understanding Strongly advised behavioral modification and quit alcohol intake -- Traumatic head injury/due to fall Initial CT scan of the head shows no acute intracranial abnormality. Patient is on fall precaution. Will consult physical therapy for evaluation. We will monitor the patient closely --Morbid obesity; BMI 41.7 Counseling done advised diet modification exercise as tolerated and weight reduction, And you are medically stable Advised bariatric surgical evaluation as outpatient for weight reduction program when you are medically stable --DVT prophylaxis Lovenox subcu renal dose Subjective Date of service: 07/22/22 Principal diagnosis: Ground-level fall metabolic encephalopathy hyponatremia Interval history: 61 years old female with past medical history of COPD, congestive heart failure, bronchitis, pleurisy was brought to the hospital because of shortness of breath. Patient also had a unwitnessed ground-level fall. Patient is alcohol abuser and on blood thinner. Patient has a hematoma on the back of the head. Bleeding is controlled. Family did not witness the fall. Unknown LOC. Patient is now alkylator oriented x3. Patient had episode of hyponatremia. Now much improved. At baseline. Shortness of breath is improved. No further bleeding. Objective - Constitutional Vitals: Vital Signs - 12hr 07/22/22 07/22/22 07/22/22 07:31 08:00 09:57 Temperature 98.3 F Pulse Rate 86 Pulse Rate [ 108 H Anterior Throughout] Respiratory 19 Rate Respiratory 17 Rate [Anterior Throughout] Blood Pressure 141/84 O2 Sat by Pulse 98 95 Oximetry 07/22/22 07/22/22 10:00 14:00 Temperature Pulse Rate Pulse Rate [ 91 H Anterior Throughout] Respiratory 22 Rate Respiratory 18 Rate [Anterior Throughout] Blood Pressure O2 Sat by Pulse 95 Oximetry General appearance: Present: no acute distress, well-nourished - EENT Eyes: PERRL, EOM intact ENT: hearing intact, clear oral mucosa Ears: bilateral: normal - Neck Neck: supple, normal ROM - Respiratory Respiratory effort: normal Respiratory: bilateral: CTA - Breasts Breasts: normal - Cardiovascular Rhythm: regular Heart Sounds: Present: S1 & S2. Absent: gallop, rub Extremities: pulses intact, No edema, normal color, Full ROM - Gastrointestinal General gastrointestinal: Present: soft, non-tender, non-distended, normal bowel sounds - Genitourinary Female genitourinary: normal - Integumentary Integumentary: clear, warm, dry - Musculoskeletal Musculoskeletal: 1, strength equal bilaterally - Neurologic Neurologic: moves all extremities - Psychiatric Psychiatric: memory intact, appropriate mood/affect, intact judgment & insight - Labs CBC & Chem 7: 07/22/22 05:47 07/22/22 05:47 Labs: Abnormal lab results 07/21/22 07/22/22 07/22/22 Range/Units 20:59 05:47 05:47 Seg Neuts % (Manual) 94.0 H (40.0-70.0) % Lymphocytes % (Manual) 4.0 L (13.4-35.0) % Seg Neutrophils # Man 9.1 H (1.8-7.7) K/mm3 Lymphocytes # (Manual) 0.4 L (1.2-5.4) K/mm3 Chloride 89.3 L (98-107) mmol/L Carbon Dioxide 40 H (22-30) mmol/L BUN 24 H (7-17) mg/dL Glucose 152 H (65-100) mg/dL POC Glucose 160 H (70-105) mg/dL 07/22/22 Range/Units 07:25 Seg Neuts % (Manual) (40.0-70.0) % Lymphocytes % (Manual) (13.4-35.0) % Seg Neutrophils # Man (1.8-7.7) K/mm3 Lymphocytes # (Manual) (1.2-5.4) K/mm3 Chloride (98-107) mmol/L Carbon Dioxide (22-30) mmol/L BUN (7-17) mg/dL Glucose (65-100) mg/dL POC Glucose 156 H (70-105) mg/dL HEART Score - HEART Score Troponin: Troponin T < 0.010 ng/mL (0.00-0.029) 07/16/22 23:57
[2022-07-23] MEDS: FUROSEMIDE 40 MG/4 ML INJ IV SCH ×2 (05:12→17:27)
[2022-07-23] MEDS: methylPREDNISolone Sod Succinate 40 MG/1 ML INJ IV SCH ×3 (05:12→22:05)
--- NOTE | 2022-07-23 08:35 | Progress Note ---
Assessment and Plan Assessment and plan: 61-year-old male patient with significant past medical history of chronic alcohol use was admitted through emergency room with ground-level fall --Acute hypoxic respiratory failure; requiring BiPAP Requiring supplemental oxygen upon admission Due to COPD and CHF exacerbation Continue oxygen titrate O2 sats more than 90% Continue IV diuretics, fluid restriction Continue BiPAP during nights and during daytime as needed Nebulizers, IV steroids, IV antibiotics We will consult pulmonary for further evaluation Patient currently requiring 5 L O2 -- Acute exacerbation of COPD (chronic obstructive pulmonary disease) Oxygen per nasal cannula 3 L/min. DuoNeb via nebulizer every 4 hours. Albuterol via nebulizer every 4 hours. We will continue the home medication Home O2 evaluation prior to discharge Supportive care -- Acute on chronic diastolic congestive heart failure: POA IV diuretics, input output monitoring, daily weight, fluid restriction Cardiology consult if needed Echocardiogram reveals borderline mild concentric left ventricular hypertrophy with left ventricular systolic function normal EF 65% and RVSP 20 mmHg with no apparent pulmonary hypertension --Obesity hypoventilation syndrome; Patient is requiring Ventimask/BiPAP We will consult pulmonary if no improvement Continue current management --Possible obstructive sleep apnea; Due to morbid obesity and obesity hypoventilation syndrome Needs outpatient sleep study, need CPAP/BiPAP Pulmonary consult --ground-level fall on admission Patient is on fall precaution. CT head without contrast no acute abnormality noted Physical therapy, Occupational Therapy evaluation and management DC needs, --Hyponatremia/improving IV normal saline , closely monitor sodium and other electrolytes Consider sodium chloride oral as needed Nephrology consult if no improvement --Hypomagnesemia; Replenished with mag sulfate 2 g IV Monitor electrolytes -- Chronic alcohol alcohol abuse Thiamine folic acid and multivitamins Strongly advised to quit alcohol intake Patient verbalized understanding Strongly advised behavioral modification and quit alcohol intake -- Traumatic head injury/due to fall Initial CT scan of the head shows no acute intracranial abnormality. Patient is on fall precaution. Will consult physical therapy for evaluation. We will monitor the patient closely --Morbid obesity; BMI 41.7 Counseling done advised diet modification exercise as tolerated and weight reduction, And you are medically stable Advised bariatric surgical evaluation as outpatient for weight reduction program when you are medically stable --DVT prophylaxis Lovenox subcu renal dose History Interval history: No new issues overnight Hospitalist Physical - Constitutional Vitals: Temp Pulse Resp BP Pulse Ox 98.5 F 90 20 164/93 98 07/23/22 04:10 07/23/22 04:45 07/23/22 04:45 07/23/22 04:10 07/23/22 04:45 General appearance: Present: no acute distress, well-nourished, obese (Morbidly obese), other (Shortness of breath, on BiPAP) - EENT Eyes: Present: PERRL, EOM intact ENT: hearing intact, clear oral mucosa, dentition normal - Neck Neck: Present: supple, normal ROM - Respiratory Respiratory effort: normal Respiratory: bilateral: CTA - Cardiovascular Rhythm: regular Heart Sounds: Present: S1 & S2. Absent: gallop, rub - Extremities Extremities: no ischemia, No edema, Full ROM - Abdominal General gastrointestinal: soft, non-tender, non-distended, normal bowel sounds - Integumentary Integumentary: Present: clear, warm, dry - Neurologic Neurologic: CNII-XII intact, moves all extremities HEART Score - HEART Score Troponin: Troponin T < 0.010 ng/mL (0.00-0.029) 07/16/22 23:57 Results - Labs CBC & Chem 7: 07/22/22 05:47 07/22/22 05:47 Labs: Laboratory Last Values WBC 9.7 K/mm3 (4.5-11.0) 07/22/22 05:47 RBC 4.31 M/mm3 (3.65-5.03) 07/22/22 05:47 Hgb 12.7 gm/dl (10.1-14.3) 07/22/22 05:47 Hct 39.7 % (30.3-42.9) 07/22/22 05:47 MCV 92 fl (79-97) 07/22/22 05:47 MCH 30 pg (28-32) 07/22/22 05:47 MCHC 32 % (30-34) 07/22/22 05:47 RDW 14.2 % (13.2-15.2) 07/22/22 05:47 Plt Count 321 K/mm3 (140-440) 07/22/22 05:47 Add Manual Diff Complete 07/22/22 05:47 Total Counted 100 07/22/22 05:47 Seg Neutrophils % Guest Services Attendant 07/22/22 05:47 Seg Neuts % (Manual) 94.0 % (40.0-70.0) H 07/22/22 05:47 Band Neutrophils % 0 % 07/22/22 05:47 Lymphocytes % (Manual) 4.0 % (13.4-35.0) L 07/22/22 05:47 Reactive Lymphs % (Man) 0 % 07/22/22 05:47 Monocytes % (Manual) 2.0 % (0.0-7.3) 07/22/22 05:47 Eosinophils % (Manual) 0 % (0.0-4.3) 07/22/22 05:47 Basophils % (Manual) 0 % (0.0-1.8) 07/22/22 05:47 Metamyelocytes % 0 % 07/22/22 05:47 Myelocytes % 0 % 07/22/22 05:47 Promyelocytes % 0 % 07/22/22 05:47 Blast Cells % 0 % 07/22/22 05:47 Nucleated RBC % Not Reportable 07/22/22 05:47 Seg Neutrophils # Man 9.1 K/mm3 (1.8-7.7) H 07/22/22 05:47 Band Neutrophils # 0.0 K/mm3 07/22/22 05:47 Lymphocytes # (Manual) 0.4 K/mm3 (1.2-5.4) L 07/22/22 05:47 Abs React Lymphs (Man) 0.0 K/mm3 07/22/22 05:47 Monocytes # (Manual) 0.2 K/mm3 (0.0-0.8) 07/22/22 05:47 Eosinophils # (Manual) 0.0 K/mm3 (0.0-0.4) 07/22/22 05:47 Basophils # (Manual) 0.0 K/mm3 (0.0-0.1) 07/22/22 05:47 Metamyelocytes # 0.0 K/mm3 07/22/22 05:47 Myelocytes # 0.0 K/mm3 07/22/22 05:47 Promyelocytes # 0.0 K/mm3 07/22/22 05:47 Blast Cells # 0.0 K/mm3 07/22/22 05:47 WBC Morphology Not Reportable 07/22/22 05:47 Hypersegmented Neuts Not Reportable 07/22/22 05:47 Hyposegmented Neuts Not Reportable 07/22/22 05:47 Hypogranular Neuts Not Reportable 07/22/22 05:47 Smudge Cells Not Reportable 07/22/22 05:47 Toxic Granulation Not Reportable 07/22/22 05:47 Toxic Vacuolation Not Reportable 07/22/22 05:47 Dohle Bodies Not Reportable 07/22/22 05:47 Pelger-Huet Anomaly Not Reportable 07/22/22 05:47 [place] Rods Not Reportable 07/22/22 05:47 Platelet Estimate Consistent w auto 07/22/22 05:47 Clumped Platelets Not Reportable 07/22/22 05:47 Plt Clumps, EDTA Not Reportable 07/22/22 05:47 Large Platelets Not Reportable 07/22/22 05:47 Giant Platelets Not Reportable 07/22/22 05:47 Platelet Satelliting Not Reportable 07/22/22 05:47 Plt Morphology Comment Not Reportable 07/22/22 05:47 RBC Morphology Not Reportable 07/22/22 05:47 Dimorphic RBCs Not Reportable 07/22/22 05:47 Polychromasia Not Reportable 07/22/22 05:47 Hypochromasia Not Reportable 07/22/22 05:47 Poikilocytosis Not Reportable 07/22/22 05:47 Anisocytosis Not Reportable 07/22/22 05:47 Microcytosis Not Reportable 07/22/22 05:47 Macrocytosis Not Reportable 07/22/22 05:47 Spherocytes Not Reportable 07/22/22 05:47 Pappenheimer Bodies Not Reportable 07/22/22 05:47 Sickle Cells Not Reportable 07/22/22 05:47 Target Cells Not Reportable 07/22/22 05:47 Tear Drop Cells Not Reportable 07/22/22 05:47 Ovalocytes Not Reportable 07/22/22 05:47 Stomatocytes 1+ 07/18/22 10:02 Helmet Cells Not Reportable 07/22/22 05:47 [place] Bodies Not Reportable 07/22/22 05:47 [place] Rings Not Reportable 07/22/22 05:47 [place] Cells Not Reportable 07/22/22 05:47 Bite Cells Not Reportable 07/22/22 05:47 Crenated Cell Not Reportable 07/22/22 05:47 Elliptocytes Not Reportable 07/22/22 05:47 Acanthocytes (Spur) Not Reportable 07/22/22 05:47 Rouleaux Not Reportable 07/22/22 05:47 Hemoglobin C Crystals Not Reportable 07/22/22 05:47 Schistocytes Not Reportable 07/22/22 05:47 Malaria parasites Not Reportable 07/22/22 05:47 Dex Bodies Not Reportable 07/22/22 05:47 Hem Pathologist Commnt No 07/22/22 05:47 PT 13.5 Sec. (12.2-14.9) 07/16/22 23:57 INR 0.93 (0.87-1.13) 07/16/22 23:57 ABG pH 7.444 pH Units (7.350-7.450) 07/18/22 19:50 ABG pCO2 48.7 mm Hg 07/18/22 19:50 ABG pO2 61.8 mm Hg (80.0-90.0) L 07/18/22 19:50 ABG HCO3 32.6 mmol/L (20.0-26.0) H 07/18/22 19:50 ABG O2 Saturation 93.9 % (95.0-99.0) L 07/18/22 19:50 ABG Base Excess 7.4 mmol/L (-2.0-3.0) H 07/18/22 19:50 ABG Hemoglobin 13.0 gm/dl (12.0-16.0) 07/18/22 19:50 ABG Carboxyhemoglobin 1.6 % (0.0-5.0) 07/18/22 19:50 ABG Methemoglobin 0.3 % (0.0-1.5) 07/18/22 19:50 Oxyhemoglobin 92.1 % (95.0-99.0) L 07/18/22 19:50 FiO2 45 % 07/18/22 19:50 Sodium 142 mmol/L (137-145) 07/22/22 05:47 Potassium 4.5 mmol/L (3.6-5.0) 07/22/22 05:47 Chloride 89.3 mmol/L (98-107) L 07/22/22 05:47 Carbon Dioxide 40 mmol/L (22-30) H 07/22/22 05:47 Anion Gap 17 mmol/L 07/22/22 05:47 BUN 24 mg/dL (7-17) H 07/22/22 05:47 Creatinine 0.7 mg/dL (0.6-1.2) 07/22/22 05:47 Estimated GFR > 60 ml/min 07/22/22 05:47 BUN/Creatinine Ratio 34 % 07/22/22 05:47 Glucose 152 mg/dL (65-100) H 07/22/22 05:47 POC Glucose 156 mg/dL (70-105) H 07/22/22 07:25 Calcium 8.7 mg/dL (8.4-10.2) 07/22/22 05:47 Magnesium 2.00 mg/dL (1.7-2.3) 07/20/22 Unknown Total Bilirubin 0.20 mg/dL (0.1-1.2) 07/16/22 23:57 AST 24 units/L (5-40) 07/16/22 23:57 ALT 19 units/L (7-56) 07/16/22 23:57 Alkaline Phosphatase 87 units/L (35-129) 07/16/22 23:57 Total Creatine Kinase 65 units/L (30-135) 07/16/22 23:57 Troponin T < 0.010 ng/mL (0.00-0.029) 07/16/22 23:57 Total Protein 6.8 g/dL (6.3-8.2) 07/16/22 23:57 Albumin 4.0 g/dL (3.9-5) 07/16/22 23:57 Albumin/Globulin Ratio 1.4 % 07/16/22 23:57 Urine Color Straw (Yellow) 07/17/22 06:02 Urine Turbidity Clear (Clear) 07/17/22 06:02 Specific [place] (Man) 1.020 (1.003-1.030) 07/17/22 06:02 Ur Protein (Man) 1+ mg/dL (Negative) 07/17/22 06:02 Ur Ketones (Man) Negative (Negative) 07/17/22 06:02 Ur Nitrite (Man) Negative (Negative) 07/17/22 06:02 Urine Bilirubin (Man) Negative (Negative) 07/17/22 06:02 Leukocyte Esterase (Man) Negative (Negative) 07/17/22 06:02 Urine WBC (Auto) 1.0 /HPF (0.0-6.0) 07/17/22 06:02 Urine RBC (Auto) < 1.0 /HPF (0.0-6.0) 07/17/22 06:02 U Epithel Cells (Auto) 1.0 /HPF (0-13.0) 07/17/22 06:02 Urine RBC (Manual) Trace (Negative) 07/17/22 06:02 Granular Casts 9 /LPF 07/17/22 06:02 Salicylates < 0.3 mg/dL (2.8-20.0) L 07/16/22 23:57 Urine Opiates Screen Negative 07/17/22 06:02 Urine Methadone Screen Negative 07/17/22 06:02 Ur Barbiturates Screen Negative 07/17/22 06:02 Ur Phencyclidine Scrn Negative 07/17/22 06:02 Ur Amphetamines Screen Negative 07/17/22 06:02 U Benzodiazepines Scrn Negative 07/17/22 06:02 Urine Cocaine Screen Negative 07/17/22 06:02 U Marijuana (THC) Screen Negative 07/17/22 06:02 Drugs of Abuse Note Disclamer 07/17/22 06:02 Plasma/Serum Alcohol 0.14 % (0-0.07) H 07/16/22 23:57 SARS-CoV-2 (PCR) Negative (Negative) 07/17/22 12:30 Burks/IV: Voiding Method External Female Catheter Active Medications - Current Medications Current Medications: Generic Name Dose Route Start Last Admin Trade Name Brentonq PRN Reason Stop Dose Admin Acetaminophen 650 mg 07/17/22 05:40 07/19/22 10:47 Acetaminophen 325 Mg Tab PO 650 mg Q4H PRN Administration Pain MILD(1-3)/Fever >100.5/[place]NER Albuterol 2.5 mg 07/17/22 05:40 07/18/22 14:49 Albuterol 2.5 Mg/3 Ml Nebu IH 2.5 mg Q3HRT PRN Administration Shortness Of Breath Albuterol/Ipratropium 1 ampul 07/21/22 20:00 07/22/22 21:18 Ipratropium/Albuterol Sulfate 3 Ml Ampul.Neb IH 1 ampul TIDRT MAIKOL Administration Famotidine 20 mg 07/17/22 10:00 07/22/22 21:44 Famotidine 20 Mg Tab PO 20 mg BID MAIKOL Administration Furosemide 40 mg 07/18/22 18:00 07/23/22 05:12 Furosemide 40 Mg/4 Ml Inj IV 40 mg 0600,1800 MAIKOL Administration Methylprednisolone Sodium Succinate 40 mg 07/19/22 22:00 07/23/22 05:12 Methylprednisolone Sod Succinate 40 Mg/1 Ml Inj IV 40 mg Q8HR MAIKOL Administration Morphine Sulfate 2 mg 07/17/22 05:40 Morphine 2 Mg/1 Ml Inj IV Q4H PRN Pain, Moderate (4-6) Morphine Sulfate 4 mg 07/17/22 05:40 Morphine 4 Mg/1 Ml Inj IV Q4H PRN Pain , Severe (7-10) Ondansetron HCl 4 mg 07/17/22 05:40 Ondansetron 4 Mg/2 Ml Inj IV Q8H PRN Nausea And Vomiting Sodium Chloride 10 ml 07/17/22 10:00 07/22/22 21:45 Sodium Chloride 0.9% 10 Ml Flush Syringe IV 10 ml BID AMIKOL Administration Sodium Chloride 10 ml 07/17/22 05:40 07/20/22 05:22 Sodium Chloride 0.9% 10 Ml Flush Syringe IV 10 ml PRN PRN Administration LINE FLUSH Sodium Chloride 1 gm 07/17/22 22:00 07/22/22 21:45 Sodium Chloride 1 Gm Tab PO 1 gm BID MAIKOL Administration
[2022-07-23] MEDS: IPRATROPIUM/ALBUTEROL SULFATE 3 ML AMPUL.NEB IH SCH ×3 (09:03→21:16)
[2022-07-23] MEDS: FAMOTIDINE 20 MG TAB PO SCH ×2 (09:35→22:04)
[2022-07-23] MEDS: SODIUM CHLORIDE 1 GM TAB PO SCH ×2 (09:35→22:03)
--- NOTE | 2022-07-23 11:18 | Consultation ---
History of Present Illness Consult date: 07/23/22 Requesting physician: CAROL BALL Reason for consult: COPD, hypoxemia, pulmonary hypertension History of present illness: 61 y/o morbidly obese female with known COPD admitted several days ago after ground level fall at home. Patient was hypoxic in the 70's on admission. Since then has been on and off bipap with diuretic therapy. Echo showed EF ofr 65% and mild Pulm HTN with and RVSP of 20 (new guidelines diagnose Pulm HTN now at RVSP of >20). Patient quit smoking last year and smoked for about 35 years with a 70pk/yr history. She has not seen a pulm doc. Her PCP has tried to schedule her for a sleep study but she refused to go [place] to do this. Currently lying in bed on nasal cannul in no distress. Family at bedside. Past History Past Medical History: COPD, heart failure, hypertension, other (Bronchitis, Pleurisy, had fluid removed from left lung, obesity) Past Surgical History: appendectomy Social history: alcohol abuse Family history: hypertension Medications and Allergies Allergies Allergy/AdvReac Type Severity Reaction Status Date / Time cephalexin monohydrate Allergy Unknown Verified 02/06/14 23:10 [From Keflex] Sulfa (Sulfonamide Allergy Unknown Verified 02/06/14 23:10 Antibiotics) Home Medications Medication Instructions Recorded Confirmed Last Taken Type ALBUTEROL NEB's [Proventil 0.083% 2.5 mg IH TID PRN #30 neb 02/07/14 07/18/22 Unknown Rx NEBS] DOXYCYCLINE Hyclate [Vibramycin 100 mg PO BID #14 capsule 02/07/14 07/18/22 Unknown Rx CAP] oxyCODONE [roxiCODONE] 5 mg PO Q6H PRN #7 tablet 02/07/14 07/18/22 Unknown Rx predniSONE [Deltasone] 20 mg PO BID #8 tablet 02/07/14 07/18/22 Unknown Rx Active Meds: Active Medications Acetaminophen (Acetaminophen 325 Mg Tab) 650 mg PO Q4H PRN PRN Reason: Pain MILD(1-3)/Fever >100.5/[place] Last Admin: 07/19/22 10:47 Dose: 650 mg Albuterol (Albuterol 2.5 Mg/3 Ml Nebu) 2.5 mg IH Q3HRT PRN PRN Reason: Shortness Of Breath Last Admin: 07/18/22 14:49 Dose: 2.5 mg Albuterol/Ipratropium (Ipratropium/Albuterol Sulfate 3 Ml Ampul.Neb) 1 ampul IH TIDRT [facility] Last Admin: 07/23/22 09:03 Dose: 1 ampul Budesonide (Budesonide 0.5 Mg/2 Ml Nebu) 0.5 mg IH Q12HRT [facility] Famotidine (Famotidine 20 Mg Tab) 20 mg PO BID [facility] Last Admin: 07/23/22 09:35 Dose: 20 mg Furosemide (Furosemide 40 Mg/4 Ml Inj) 40 mg IV 0600,1800 [facility] Last Admin: 07/23/22 05:12 Dose: 40 mg Methylprednisolone Sodium Succinate (Methylprednisolone Sod Succinate 40 Mg/1 Ml Inj) 40 mg IV Q8HR [facility] Last Admin: 07/23/22 05:12 Dose: 40 mg Morphine Sulfate (Morphine 2 Mg/1 Ml Inj) 2 mg IV Q4H PRN PRN Reason: Pain, Moderate (4-6) Morphine Sulfate (Morphine 4 Mg/1 Ml Inj) 4 mg IV Q4H PRN PRN Reason: Pain , Severe (7-10) Ondansetron HCl (Ondansetron 4 Mg/2 Ml Inj) 4 mg IV Q8H PRN PRN Reason: Nausea And Vomiting Sodium Chloride (Sodium Chloride 0.9% 10 Ml Flush Syringe) 10 ml IV BID [facility] Last Admin: 07/23/22 09:35 Dose: 10 ml Sodium Chloride (Sodium Chloride 0.9% 10 Ml Flush Syringe) 10 ml IV PRN PRN PRN Reason: LINE FLUSH Last Admin: 07/20/22 05:22 Dose: 10 ml Sodium Chloride (Sodium Chloride 1 Gm Tab) 1 gm PO BID [facility] Last Admin: 07/23/22 09:35 Dose: 1 gm Review of Systems All systems: negative Physical Examination Vital signs: Vital Signs Temp Pulse Resp BP Pulse Ox 98.1 F 87 18 150/113 96 07/16/22 22:42 07/16/22 22:42 07/16/22 22:42 07/16/22 22:42 07/16/22 22:42 General appearance: no acute distress, alert, other (morbidly obese with garibay facies) Eyes: non-icteric ENT: oropharynx moist Neck: supple, other (very large in circumference) Effort: normal Ascultation: Bilateral: diminished breath sounds Percussion: Bilateral: not dull Tactile fremitus: Bilateral: normal Cardiovascular: regular rate and rhythm Gastrointestinal: normoactive bowel sounds, soft Extremities: edema (per patient improved compared to admission) Results - Laboratory Findings CBC and BMP: 07/22/22 05:47 07/22/22 05:47 ABG ABG pH 7.444 pH Units (7.350-7.450) 07/18/22 19:50 ABG pCO2 48.7 mm Hg 07/18/22 19:50 ABG pO2 61.8 mm Hg (80.0-90.0) L 07/18/22 19:50 ABG O2 Saturation 93.9 % (95.0-99.0) L 07/18/22 19:50 PT/INR, D-dimer PT 13.5 Sec. (12.2-14.9) 07/16/22 23:57 INR 0.93 (0.87-1.13) 07/16/22 23:57 Abnormal lab findings: Abnormal Labs 07/16/22 07/16/22 07/16/22 23:57 23:57 23:57 WBC 18.9 H Seg Neuts % (Manual) 87.0 H Lymphocytes % (Manual) 6.0 L Monocytes % (Manual) Seg Neutrophils # Man 16.4 H Lymphocytes # (Manual) 1.1 L Monocytes # (Manual) ABG pO2 ABG HCO3 ABG O2 Saturation ABG Base Excess Oxyhemoglobin Sodium Chloride Carbon Dioxide BUN Creatinine Glucose POC Glucose Calcium Magnesium Salicylates < 0.3 L Plasma/Serum Alcohol 0.14 H 07/16/22 07/17/22 07/18/22 23:57 22:18 10:02 WBC Seg Neuts % (Manual) 88.0 H Lymphocytes % (Manual) 4.0 L Monocytes % (Manual) 8.0 H Seg Neutrophils # Man 9.4 H Lymphocytes # (Manual) 0.4 L Monocytes # (Manual) 0.9 H ABG pO2 ABG HCO3 ABG O2 Saturation ABG Base Excess Oxyhemoglobin Sodium 118 L* 130 L D Chloride 78.2 L 90.9 L Carbon Dioxide 31 H BUN 6 L Creatinine 0.5 L Glucose 114 H 120 H POC Glucose Calcium 8.0 L Magnesium Salicylates Plasma/Serum Alcohol 07/18/22 07/18/22 07/18/22 10:02 18:46 19:50 WBC Seg Neuts % (Manual) Lymphocytes % (Manual) Monocytes % (Manual) Seg Neutrophils # Man Lymphocytes # (Manual) Monocytes # (Manual) ABG pO2 61.8 L ABG HCO3 32.6 H ABG O2 Saturation 93.9 L ABG Base Excess 7.4 H Oxyhemoglobin 92.1 L Sodium 134 L Chloride 93.2 L Carbon Dioxide 32 H BUN 4 L Creatinine 0.5 L Glucose POC Glucose 124 H Calcium 8.2 L Magnesium Salicylates Plasma/Serum Alcohol 07/19/22 07/20/22 07/20/22 11:40 11:27 Unknown WBC Seg Neuts % (Manual) Lymphocytes % (Manual) Monocytes % (Manual) Seg Neutrophils # Man Lymphocytes # (Manual) Monocytes # (Manual) ABG pO2 ABG HCO3 ABG O2 Saturation ABG Base Excess Oxyhemoglobin Sodium 134 L Chloride 88.1 L 87.5 L 87.9 L Carbon Dioxide 41 H* D 45 H* 42 H* BUN Creatinine 0.5 L 0.5 L Glucose 195 H 151 H POC Glucose Calcium Magnesium 1.50 L Salicylates Plasma/Serum Alcohol 07/21/22 07/21/22 07/21/22 07:28 12:42 16:39 WBC Seg Neuts % (Manual) Lymphocytes % (Manual) Monocytes % (Manual) Seg Neutrophils # Man Lymphocytes # (Manual) Monocytes # (Manual) ABG pO2 ABG HCO3 ABG O2 Saturation ABG Base Excess Oxyhemoglobin Sodium Chloride Carbon Dioxide BUN Creatinine Glucose POC Glucose 175 H 237 H 133 H Calcium Magnesium Salicylates Plasma/Serum Alcohol 07/21/22 07/22/22 07/22/22 20:59 05:47 05:47 WBC Seg Neuts % (Manual) 94.0 H Lymphocytes % (Manual) 4.0 L Monocytes % (Manual) Seg Neutrophils # Man 9.1 H Lymphocytes # (Manual) 0.4 L Monocytes # (Manual) ABG pO2 ABG HCO3 ABG O2 Saturation ABG Base Excess Oxyhemoglobin Sodium Chloride 89.3 L Carbon Dioxide 40 H BUN 24 H Creatinine Glucose 152 H POC Glucose 160 H Calcium Magnesium Salicylates Plasma/Serum Alcohol 07/22/22 07:25 WBC Seg Neuts % (Manual) Lymphocytes % (Manual) Monocytes % (Manual) Seg Neutrophils # Man Lymphocytes # (Manual) Monocytes # (Manual) ABG pO2 ABG HCO3 ABG O2 Saturation ABG Base Excess Oxyhemoglobin Sodium Chloride Carbon Dioxide BUN Creatinine Glucose POC Glucose 156 H Calcium Magnesium Salicylates Plasma/Serum Alcohol - Diagnostic Findings Chest x-ray: image reviewed Assessment and Plan 61 y/o morbidly female admitted post ground level fall with hematoma, also with chronic respiratory failure, obesity hypoventilation syndrome and possible COPD exacerbation. 1. Pulm-Given smoking history, most likely has COPD but needs formal evaluation. Suggest changing to oral prednisone 60 daily and taper as follows: 60 daily for 4 days, 40 daily for 40 days, 20 daily for 4 days, then 10 daily for 4 days then stop. Will add BID Pulmicort and continue scheduled duoneb therapy. Agree with diuretics as patient needs a daily net negative fluid balance but also needs better BP control. Needs outpatient PSG. She also meets criteria for obesity hypoventilation syndrome as well. She will need a walk test prior to discharge to assess exertion and rest oxygen needs. 2. Ok with NIV therapy for now but currently no working diagnosis to obtain NIV prior to discharge. Would need further work up as outpatient 3. Needs weight loss. Should consider evaluation for gastric bypass as ou tpatient. Thank you for the consult, will continue to follow along with you.
--- NOTE | 2022-07-23 11:28 | XRay Report ---
XR chest 1V ap INDICATION / CLINICAL INFORMATION: Worsening Hypoxemia. COMPARISON: 07/18/2022 FINDINGS: SUPPORT DEVICES: Unchanged. HEART /PULMONARY VASCULATURE: Unchanged. LUNGS / PLEURA: Mild bibasilar interstitial opacities remain, unchanged. No new or increasing airspac e consolidation. No sizable pleural effusion. No pneumothorax. IMPRESSION: 1. No significant interval change. Signer Name: Hong Payne MD Signed: 07/23/2022 11:24 AM Workstation Name: [id number]
[2022-07-23] MEDS: METOPROLOL TARTRATE 50 MG TAB PO SCH ×2 (17:54→22:03)
[2022-07-23] MEDS: BUDESONIDE 0.5 MG/2 ML NEBU IH SCH (21:16)
[2022-07-24] MEDS: methylPREDNISolone Sod Succinate 40 MG/1 ML INJ IV SCH ×3 (05:32→21:58)
[2022-07-24] MEDS: FUROSEMIDE 40 MG/4 ML INJ IV SCH ×2 (05:32→18:06)
[2022-07-24] MEDS: IPRATROPIUM/ALBUTEROL SULFATE 3 ML AMPUL.NEB IH SCH ×3 (09:02→20:53)
[2022-07-24] MEDS: BUDESONIDE 0.5 MG/2 ML NEBU IH SCH ×2 (09:02→20:53)
--- NOTE | 2022-07-24 09:16 | Progress Note ---
Assessment and Plan Assessment and plan: 61-year-old male patient with significant past medical history of chronic alcohol use was admitted through emergency room with ground-level fall --Acute hypoxic respiratory failure; requiring BiPAP Requiring supplemental oxygen upon admission Due to COPD and CHF exacerbation Continue oxygen titrate O2 sats more than 90% Continue IV diuretics, fluid restriction Continue BiPAP during nights and during daytime as needed Nebulizers, IV steroids, IV antibiotics Pulmonary following. Patient currently requiring 4 L O2 -- Acute exacerbation of COPD (chronic obstructive pulmonary disease) Oxygen per nasal cannula 3 L/min. DuoNeb via nebulizer every 4 hours. Albuterol via nebulizer every 4 hours. We will continue the home medication Home O2 evaluation prior to discharge Supportive care -- Acute on chronic diastolic congestive heart failure: POA IV diuretics, input output monitoring, daily weight, fluid restriction Cardiology consult if needed Echocardiogram reveals borderline mild concentric left ventricular hypertrophy with left ventricular systolic function normal EF 65% and RVSP 20 mmHg with no apparent pulmonary hypertension --Obesity hypoventilation syndrome; Patient is requiring Ventimask/BiPAP We will consult pulmonary if no improvement Continue current management --Possible obstructive sleep apnea; Due to morbid obesity and obesity hypoventilation syndrome Needs outpatient sleep study, need CPAP/BiPAP Pulmonary consult --ground-level fall on admission Patient is on fall precaution. CT head without contrast no acute abnormality noted Physical therapy, Occupational Therapy evaluation and management DC needs, --Hyponatremia/improving IV normal saline , closely monitor sodium and other electrolytes Consider sodium chloride oral as needed Nephrology consult if no improvement --Hypomagnesemia; Replenished with mag sulfate 2 g IV Monitor electrolytes -- Chronic alcohol alcohol abuse Thiamine folic acid and multivitamins Strongly advised to quit alcohol intake Patient verbalized understanding Strongly advised behavioral modification and quit alcohol intake -- Traumatic head injury/due to fall Initial CT scan of the head shows no acute intracranial abnormality. Patient is on fall precaution. Will consult physical therapy for evaluation. We will monitor the patient closely --Morbid obesity; BMI 41.7 Counseling done advised diet modification exercise as tolerated and weight reduction, And you are medically stable Advised bariatric surgical evaluation as outpatient for weight reduction program when you are medically stable --DVT prophylaxis Lovenox subcu renal dose History Interval history: No new issues overnight Hospitalist Physical - Constitutional Vitals: Temp Pulse Resp BP Pulse Ox 98.0 F 82 18 177/103 96 07/24/22 07:47 07/24/22 08:00 07/24/22 08:00 07/24/22 07:47 07/24/22 07:47 General appearance: Present: no acute distress, well-nourished, obese (Morbidly obese), other (Shortness of breath, on BiPAP) - EENT Eyes: Present: PERRL, EOM intact ENT: hearing intact, clear oral mucosa, dentition normal - Neck Neck: Present: supple, normal ROM - Respiratory Respiratory effort: normal Respiratory: bilateral: CTA - Cardiovascular Rhythm: regular Heart Sounds: Present: S1 & S2. Absent: gallop, rub - Extremities Extremities: no ischemia, No edema, Full ROM - Abdominal General gastrointestinal: soft, non-tender, non-distended, normal bowel sounds - Integumentary Integumentary: Present: clear, warm, dry - Neurologic Neurologic: CNII-XII intact, moves all extremities HEART Score - HEART Score Troponin: Troponin T < 0.010 ng/mL (0.00-0.029) 07/16/22 23:57 Results - Labs CBC & Chem 7: 07/22/22 05:47 07/22/22 05:47 Labs: Laboratory Last Values WBC 9.7 K/mm3 (4.5-11.0) 07/22/22 05:47 RBC 4.31 M/mm3 (3.65-5.03) 07/22/22 05:47 Hgb 12.7 gm/dl (10.1-14.3) 07/22/22 05:47 Hct 39.7 % (30.3-42.9) 07/22/22 05:47 MCV 92 fl (79-97) 07/22/22 05:47 MCH 30 pg (28-32) 07/22/22 05:47 MCHC 32 % (30-34) 07/22/22 05:47 RDW 14.2 % (13.2-15.2) 07/22/22 05:47 Plt Count 321 K/mm3 (140-440) 07/22/22 05:47 Add Manual Diff Complete 07/22/22 05:47 Total Counted 100 07/22/22 05:47 Seg Neutrophils % Visiting Housekeeper 07/22/22 05:47 Seg Neuts % (Manual) 94.0 % (40.0-70.0) H 07/22/22 05:47 Band Neutrophils % 0 % 07/22/22 05:47 Lymphocytes % (Manual) 4.0 % (13.4-35.0) L 07/22/22 05:47 Reactive Lymphs % (Man) 0 % 07/22/22 05:47 Monocytes % (Manual) 2.0 % (0.0-7.3) 07/22/22 05:47 Eosinophils % (Manual) 0 % (0.0-4.3) 07/22/22 05:47 Basophils % (Manual) 0 % (0.0-1.8) 07/22/22 05:47 Metamyelocytes % 0 % 07/22/22 05:47 Myelocytes % 0 % 07/22/22 05:47 Promyelocytes % 0 % 07/22/22 05:47 Blast Cells % 0 % 07/22/22 05:47 Nucleated RBC % Not Reportable 07/22/22 05:47 Seg Neutrophils # Man 9.1 K/mm3 (1.8-7.7) H 07/22/22 05:47 Band Neutrophils # 0.0 K/mm3 07/22/22 05:47 Lymphocytes # (Manual) 0.4 K/mm3 (1.2-5.4) L 07/22/22 05:47 Abs React Lymphs (Man) 0.0 K/mm3 07/22/22 05:47 Monocytes # (Manual) 0.2 K/mm3 (0.0-0.8) 07/22/22 05:47 Eosinophils # (Manual) 0.0 K/mm3 (0.0-0.4) 07/22/22 05:47 Basophils # (Manual) 0.0 K/mm3 (0.0-0.1) 07/22/22 05:47 Metamyelocytes # 0.0 K/mm3 07/22/22 05:47 Myelocytes # 0.0 K/mm3 07/22/22 05:47 Promyelocytes # 0.0 K/mm3 07/22/22 05:47 Blast Cells # 0.0 K/mm3 07/22/22 05:47 WBC Morphology Not Reportable 07/22/22 05:47 Hypersegmented Neuts Not Reportable 07/22/22 05:47 Hyposegmented Neuts Not Reportable 07/22/22 05:47 Hypogranular Neuts Not Reportable 07/22/22 05:47 Smudge Cells Not Reportable 07/22/22 05:47 Toxic Granulation Not Reportable 07/22/22 05:47 Toxic Vacuolation Not Reportable 07/22/22 05:47 Dohle Bodies Not Reportable 07/22/22 05:47 Pelger-Huet Anomaly Not Reportable 07/22/22 05:47 Savannah Rods Not Reportable 07/22/22 05:47 Platelet Estimate Consistent w auto 07/22/22 05:47 Clumped Platelets Not Reportable 07/22/22 05:47 Plt Clumps, EDTA Not Reportable 07/22/22 05:47 Large Platelets Not Reportable 07/22/22 05:47 Giant Platelets Not Reportable 07/22/22 05:47 Platelet Satelliting Not Reportable 07/22/22 05:47 Plt Morphology Comment Not Reportable 07/22/22 05:47 RBC Morphology Not Reportable 07/22/22 05:47 Dimorphic RBCs Not Reportable 07/22/22 05:47 Polychromasia Not Reportable 07/22/22 05:47 Hypochromasia Not Reportable 07/22/22 05:47 Poikilocytosis Not Reportable 07/22/22 05:47 Anisocytosis Not Reportable 07/22/22 05:47 Microcytosis Not Reportable 07/22/22 05:47 Macrocytosis Not Reportable 07/22/22 05:47 Spherocytes Not Reportable 07/22/22 05:47 Pappenheimer Bodies Not Reportable 07/22/22 05:47 Sickle Cells Not Reportable 07/22/22 05:47 Target Cells Not Reportable 07/22/22 05:47 Tear Drop Cells Not Reportable 07/22/22 05:47 Ovalocytes Not Reportable 07/22/22 05:47 Stomatocytes 1+ 07/18/22 10:02 Helmet Cells Not Reportable 07/22/22 05:47 [place] Bodies Not Reportable 07/22/22 05:47 [place] Rings Not Reportable 07/22/22 05:47 [place] Cells Not Reportable 07/22/22 05:47 Bite Cells Not Reportable 07/22/22 05:47 Crenated Cell Not Reportable 07/22/22 05:47 Elliptocytes Not Reportable 07/22/22 05:47 Acanthocytes (Spur) Not Reportable 07/22/22 05:47 Rouleaux Not Reportable 07/22/22 05:47 Hemoglobin C Crystals Not Reportable 07/22/22 05:47 Schistocytes Not Reportable 07/22/22 05:47 Malaria parasites Not Reportable 07/22/22 05:47 Dex Bodies Not Reportable 07/22/22 05:47 Hem Pathologist Commnt No 07/22/22 05:47 PT 13.5 Sec. (12.2-14.9) 07/16/22 23:57 INR 0.93 (0.87-1.13) 07/16/22 23:57 ABG pH 7.444 pH Units (7.350-7.450) 07/18/22 19:50 ABG pCO2 48.7 mm Hg 07/18/22 19:50 ABG pO2 61.8 mm Hg (80.0-90.0) L 07/18/22 19:50 ABG HCO3 32.6 mmol/L (20.0-26.0) H 07/18/22 19:50 ABG O2 Saturation 93.9 % (95.0-99.0) L 07/18/22 19:50 ABG Base Excess 7.4 mmol/L (-2.0-3.0) H 07/18/22 19:50 ABG Hemoglobin 13.0 gm/dl (12.0-16.0) 07/18/22 19:50 ABG Carboxyhemoglobin 1.6 % (0.0-5.0) 07/18/22 19:50 ABG Methemoglobin 0.3 % (0.0-1.5) 07/18/22 19:50 Oxyhemoglobin 92.1 % (95.0-99.0) L 07/18/22 19:50 FiO2 45 % 07/18/22 19:50 Sodium 142 mmol/L (137-145) 07/22/22 05:47 Potassium 4.5 mmol/L (3.6-5.0) 07/22/22 05:47 Chloride 89.3 mmol/L (98-107) L 07/22/22 05:47 Carbon Dioxide 40 mmol/L (22-30) H 07/22/22 05:47 Anion Gap 17 mmol/L 07/22/22 05:47 BUN 24 mg/dL (7-17) H 07/22/22 05:47 Creatinine 0.7 mg/dL (0.6-1.2) 07/22/22 05:47 Estimated GFR > 60 ml/min 07/22/22 05:47 BUN/Creatinine Ratio 34 % 07/22/22 05:47 Glucose 152 mg/dL (65-100) H 07/22/22 05:47 POC Glucose 164 mg/dL (70-105) H 07/24/22 07:47 Calcium 8.7 mg/dL (8.4-10.2) 07/22/22 05:47 Magnesium 2.00 mg/dL (1.7-2.3) 07/20/22 Unknown Total Bilirubin 0.20 mg/dL (0.1-1.2) 07/16/22 23:57 AST 24 units/L (5-40) 07/16/22 23:57 ALT 19 units/L (7-56) 07/16/22 23:57 Alkaline Phosphatase 87 units/L (35-129) 07/16/22 23:57 Total Creatine Kinase 65 units/L (30-135) 07/16/22 23:57 Troponin T < 0.010 ng/mL (0.00-0.029) 07/16/22 23:57 Total Protein 6.8 g/dL (6.3-8.2) 07/16/22 23:57 Albumin 4.0 g/dL (3.9-5) 07/16/22 23:57 Albumin/Globulin Ratio 1.4 % 07/16/22 23:57 Urine Color Straw (Yellow) 07/17/22 06:02 Urine Turbidity Clear (Clear) 07/17/22 06:02 Specific Sunspot (Man) 1.020 (1.003-1.030) 07/17/22 06:02 Ur Protein (Man) 1+ mg/dL (Negative) 07/17/22 06:02 Ur Ketones (Man) Negative (Negative) 07/17/22 06:02 Ur Nitrite (Man) Negative (Negative) 07/17/22 06:02 Urine Bilirubin (Man) Negative (Negative) 07/17/22 06:02 Leukocyte Esterase (Man) Negative (Negative) 07/17/22 06:02 Urine WBC (Auto) 1.0 /HPF (0.0-6.0) 07/17/22 06:02 Urine RBC (Auto) < 1.0 /HPF (0.0-6.0) 07/17/22 06:02 U Epithel Cells (Auto) 1.0 /HPF (0-13.0) 07/17/22 06:02 Urine RBC (Manual) Trace (Negative) 07/17/22 06:02 Granular Casts 9 /LPF 07/17/22 06:02 Salicylates < 0.3 mg/dL (2.8-20.0) L 07/16/22 23:57 Urine Opiates Screen Negative 07/17/22 06:02 Urine Methadone Screen Negative 07/17/22 06:02 Ur Barbiturates Screen Negative 07/17/22 06:02 Ur Phencyclidine Scrn Negative 07/17/22 06:02 Ur Amphetamines Screen Negative 07/17/22 06:02 U Benzodiazepines Scrn Negative 07/17/22 06:02 Urine Cocaine Screen Negative 07/17/22 06:02 U Marijuana (THC) Screen Negative 07/17/22 06:02 Drugs of Abuse Note Disclamer 07/17/22 06:02 Plasma/Serum Alcohol 0.14 % (0-0.07) H 07/16/22 23:57 SARS-CoV-2 (PCR) Negative (Negative) 07/17/22 12:30 Burks/IV: Voiding Method External Female Catheter Active Medications - Current Medications Current Medications: Generic Name Dose Route Start Last Admin Trade Name Freq PRN Reason Stop Dose Admin Acetaminophen 650 mg 07/17/22 05:40 07/19/22 10:47 Acetaminophen 325 Mg Tab PO 650 mg Q4H PRN Administration Pain MILD(1-3)/Fever >100.5/GARDNER Albuterol 2.5 mg 07/17/22 05:40 07/18/22 14:49 Albuterol 2.5 Mg/3 Ml Nebu IH 2.5 mg Q3HRT PRN Administration Shortness Of Breath Albuterol/Ipratropium 1 ampul 07/21/22 20:00 07/24/22 09:02 Ipratropium/Albuterol Sulfate 3 Ml Ampul.Neb IH 1 ampul TIDRT MAIKOL Administration Amlodipine Besylate 5 mg 07/24/22 10:00 Amlodipine 5 Mg Tab PO QDAY MAIKOL Budesonide 0.5 mg 07/23/22 20:00 07/24/22 09:02 Budesonide 0.5 Mg/2 Ml Nebu IH 0.5 mg Q12HRT MAIKOL Administration Famotidine 20 mg 07/17/22 10:00 07/23/22 22:04 Famotidine 20 Mg Tab PO 20 mg BID MAIKOL Administration Furosemide 40 mg 07/18/22 18:00 07/24/22 05:32 Furosemide 40 Mg/4 Ml Inj IV 40 mg 0600,1800 MAIKOL Administration Methylprednisolone Sodium Succinate 40 mg 07/19/22 22:00 07/24/22 05:32 Methylprednisolone Sod Succinate 40 Mg/1 Ml Inj IV 40 mg Q8HR MAIKOL Administration Metoprolol Tartrate 50 mg 07/23/22 18:00 07/23/22 22:03 Metoprolol Tartrate 50 Mg Tab PO 50 mg BID MAIKOL Administration Morphine Sulfate 2 mg 07/17/22 05:40 Morphine 2 Mg/1 Ml Inj IV Q4H PRN Pain, Moderate (4-6) Morphine Sulfate 4 mg 07/17/22 05:40 Morphine 4 Mg/1 Ml Inj IV Q4H PRN Pain , Severe (7-10) Ondansetron HCl 4 mg 07/17/22 05:40 Ondansetron 4 Mg/2 Ml Inj IV Q8H PRN Nausea And Vomiting Sodium Chloride 10 ml 07/17/22 10:00 07/23/22 22:04 Sodium Chloride 0.9% 10 Ml Flush Syringe IV 10 ml BID MAIKOL Administration Sodium Chloride 10 ml 07/17/22 05:40 07/20/22 05:22 Sodium Chloride 0.9% 10 Ml Flush Syringe IV 10 ml PRN PRN Administration LINE FLUSH Sodium Chloride 1 gm 07/17/22 22:00 07/23/22 22:03 Sodium Chloride 1 Gm Tab PO 1 gm BID MAIKOL Administration
[2022-07-24] MEDS: METOPROLOL TARTRATE 50 MG TAB PO SCH ×2 (09:46→21:58)
[2022-07-24] MEDS: FAMOTIDINE 20 MG TAB PO SCH ×2 (09:46→21:58)
[2022-07-24] MEDS: amLODIPine 5 MG TAB PO SCH (09:46)
[2022-07-24] MEDS: SODIUM CHLORIDE 1 GM TAB PO SCH (09:46)
--- NOTE | 2022-07-24 14:07 | Progress Note ---
Assessment and Plan 61 y/o morbidly female admitted post ground level fall with hematoma, also with chronic respiratory failure, obesity hypoventilation syndrome and possible COPD exacerbation. 07/24/22: Same recs as below. Given her coverage, will need to check to see if we can do her PSG as an outpatient. She will need a script for symbicort 80 2 puffs BID as outpatient at discharge. Will continue to follow 1. Pulm-Given smoking history, most likely has COPD but needs formal evaluation. Suggest changing to oral prednisone 60 daily and taper as follows: 60 daily for 4 days, 40 daily for 40 days, 20 daily for 4 days, then 10 daily for 4 days then stop. Will add BID Pulmicort and continue scheduled duoneb therapy. Agree with diuretics as patient needs a daily net negative fluid balance but also needs better BP control. Needs outpatient PSG. She also meets criteria for obesity hypoventilation syndrome as well. She will need a walk test prior to discharge to assess exertion and rest oxygen needs. 2. Ok with NIV therapy for now but currently no working diagnosis to obtain NIV prior to discharge. Would need further work up as outpatient 3. Needs weight loss. Should consider evaluation for gastric bypass as outpatient. Thank you for the consult, will continue to follow along with you. Subjective Date of service: 07/24/22 Principal diagnosis: Ground-level fall metabolic encephalopathy hyponatremia Interval history: No acute events. stable pulm status. Objective Vital Signs - 12hr 07/24/22 07/24/22 07/24/22 04:44 07:47 08:00 Temperature 97.8 F 98.0 F Pulse Rate 68 74 Pulse Rate [ 82 Anterior Throughout] Respiratory 16 20 Rate Respiratory 18 Rate [Anterior Throughout] Blood Pressure 171/85 177/103 O2 Sat by Pulse 96 96 Oximetry 07/24/22 07/24/22 10:00 11:26 Temperature 97.0 F L Pulse Rate 70 Pulse Rate [ Anterior Throughout] Respiratory 19 Rate Respiratory Rate [Anterior Throughout] Blood Pressure 142/85 O2 Sat by Pulse 94 89 Oximetry Constitutional: no acute distress, alert, other (morbidly obese with garibay facies) Eyes: non-icteric ENT: oropharynx moist Neck: supple, other (very large in circumference) Effort: normal Ascultation: Bilateral: diminished breath sounds Percussion: Bilateral: not dull Tactile fremitus: Bilateral: normal Cardiovascular: regular rate and rhythm Gastrointestinal: normoactive bowel sounds, soft Extremities: edema (per patient improved compared to admission) CBC and BMP: 07/22/22 05:47 07/22/22 05:47 ABG, PT/INR, D-dimer: ABG ABG pH 7.444 pH Units (7.350-7.450) 07/18/22 19:50 ABG pCO2 48.7 mm Hg 07/18/22 19:50 ABG pO2 61.8 mm Hg (80.0-90.0) L 07/18/22 19:50 ABG O2 Saturation 93.9 % (95.0-99.0) L 07/18/22 19:50 PT/INR, D-dimer PT 13.5 Sec. (12.2-14.9) 07/16/22 23:57 INR 0.93 (0.87-1.13) 07/16/22 23:57 Abnormal lab findings: Abnormal Labs 07/16/22 07/16/22 07/16/22 23:57 23:57 23:57 WBC 18.9 H Seg Neuts % (Manual) 87.0 H Lymphocytes % (Manual) 6.0 L Monocytes % (Manual) Seg Neutrophils # Man 16.4 H Lymphocytes # (Manual) 1.1 L Monocytes # (Manual) ABG pO2 ABG HCO3 ABG O2 Saturation ABG Base Excess Oxyhemoglobin Sodium Chloride Carbon Dioxide BUN Creatinine Glucose POC Glucose Calcium Magnesium Salicylates < 0.3 L Plasma/Serum Alcohol 0.14 H 07/16/22 07/17/22 07/18/22 23:57 22:18 10:02 WBC Seg Neuts % (Manual) 88.0 H Lymphocytes % (Manual) 4.0 L Monocytes % (Manual) 8.0 H Seg Neutrophils # Man 9.4 H Lymphocytes # (Manual) 0.4 L Monocytes # (Manual) 0.9 H ABG pO2 ABG HCO3 ABG O2 Saturation ABG Base Excess Oxyhemoglobin Sodium 118 L* 130 L D Chloride 78.2 L 90.9 L Carbon Dioxide 31 H BUN 6 L Creatinine 0.5 L Glucose 114 H 120 H POC Glucose Calcium 8.0 L Magnesium Salicylates Plasma/Serum Alcohol 07/18/22 07/18/22 07/18/22 10:02 18:46 19:50 WBC Seg Neuts % (Manual) Lymphocytes % (Manual) Monocytes % (Manual) Seg Neutrophils # Man Lymphocytes # (Manual) Monocytes # (Manual) ABG pO2 61.8 L ABG HCO3 32.6 H ABG O2 Saturation 93.9 L ABG Base Excess 7.4 H Oxyhemoglobin 92.1 L Sodium 134 L Chloride 93.2 L Carbon Dioxide 32 H BUN 4 L Creatinine 0.5 L Glucose POC Glucose 124 H Calcium 8.2 L Magnesium Salicylates Plasma/Serum Alcohol 07/19/22 07/20/22 07/20/22 11:40 11:27 Unknown WBC Seg Neuts % (Manual) Lymphocytes % (Manual) Monocytes % (Manual) Seg Neutrophils # Man Lymphocytes # (Manual) Monocytes # (Manual) ABG pO2 ABG HCO3 ABG O2 Saturation ABG Base Excess Oxyhemoglobin Sodium 134 L Chloride 88.1 L 87.5 L 87.9 L Carbon Dioxide 41 H* D 45 H* 42 H* BUN Creatinine 0.5 L 0.5 L Glucose 195 H 151 H POC Glucose Calcium Magnesium 1.50 L Salicylates Plasma/Serum Alcohol 07/21/22 07/21/22 07/21/22 07:28 12:42 16:39 WBC Seg Neuts % (Manual) Lymphocytes % (Manual) Monocytes % (Manual) Seg Neutrophils # Man Lymphocytes # (Manual) Monocytes # (Manual) ABG pO2 ABG HCO3 ABG O2 Saturation ABG Base Excess Oxyhemoglobin Sodium Chloride Carbon Dioxide BUN Creatinine Glucose POC Glucose 175 H 237 H 133 H Calcium Magnesium Salicylates Plasma/Serum Alcohol 07/21/22 07/22/22 07/22/22 20:59 05:47 05:47 WBC Seg Neuts % (Manual) 94.0 H Lymphocytes % (Manual) 4.0 L Monocytes % (Manual) Seg Neutrophils # Man 9.1 H Lymphocytes # (Manual) 0.4 L Monocytes # (Manual) ABG pO2 ABG HCO3 ABG O2 Saturation ABG Base Excess Oxyhemoglobin Sodium Chloride 89.3 L Carbon Dioxide 40 H BUN 24 H Creatinine Glucose 152 H POC Glucose 160 H Calcium Magnesium Salicylates Plasma/Serum Alcohol 07/22/22 07/23/22 07/23/22 07:25 07:44 11:33 WBC Seg Neuts % (Manual) Lymphocytes % (Manual) Monocytes % (Manual) Seg Neutrophils # Man Lymphocytes # (Manual) Monocytes # (Manual) ABG pO2 ABG HCO3 ABG O2 Saturation ABG Base Excess Oxyhemoglobin Sodium Chloride Carbon Dioxide BUN Creatinine Glucose POC Glucose 156 H 151 H 264 H Calcium Magnesium Salicylates Plasma/Serum Alcohol 07/23/22 07/24/22 16:53 07:47 WBC Seg Neuts % (Manual) Lymphocytes % (Manual) Monocytes % (Manual) Seg Neutrophils # Man Lymphocytes # (Manual) Monocytes # (Manual) ABG pO2 ABG HCO3 ABG O2 Saturation ABG Base Excess Oxyhemoglobin Sodium Chloride Carbon Dioxide BUN Creatinine Glucose POC Glucose 134 H 164 H Calcium Magnesium Salicylates Plasma/Serum Alcohol
[2022-07-25] MEDS: methylPREDNISolone Sod Succinate 40 MG/1 ML INJ IV SCH (05:36)
[2022-07-25] MEDS: FUROSEMIDE 40 MG/4 ML INJ IV SCH ×2 (05:36→17:07)
[2022-07-25] MEDS: SODIUM CHLORIDE 1 GM TAB PO SCH ×3 (05:53→22:33)
[2022-07-25 08:14] LABS: Hematocrit 42.9 % (30.3-42.9); Hemoglobin 13.3 gm/dl (10.1-14.3); Mean Corpuscular HGB Conc 31 % (30-34); Mean Corpuscular Volume 91 fl (79-97); Platelet Count 319 K/mm3 (140-440); Red Blood Count 4.71 M/mm3 (3.65-5.03); Red Cell Distribution Width 14.2 % (13.2-15.2)
[2022-07-25 08:26] LABS: Blood Urea Nitrogen 32 mg/dL (7-17); Calcium 8.7 mg/dL (8.4-10.2); Hemolysis Index 0
[2022-07-25 08:36] LABS: BUN/Creatinine Ratio 46
[2022-07-25] MEDS: amLODIPine 5 MG TAB PO SCH (08:59)
[2022-07-25] MEDS: FAMOTIDINE 20 MG TAB PO SCH ×2 (08:59→22:33)
[2022-07-25] MEDS: METOPROLOL TARTRATE 50 MG TAB PO SCH ×2 (09:00→22:34)
[2022-07-25] MEDS: IPRATROPIUM/ALBUTEROL SULFATE 3 ML AMPUL.NEB IH SCH ×3 (09:20→22:06)
[2022-07-25] MEDS: BUDESONIDE 0.5 MG/2 ML NEBU IH SCH ×2 (09:20→22:06)
--- NOTE | 2022-07-25 10:06 | Progress Note ---
Assessment and Plan Assessment and plan: 61-year-old male patient with significant past medical history of chronic alcohol use was admitted through emergency room with ground-level fall --Acute hypoxic respiratory failure; requiring BiPAP Requiring supplemental oxygen upon admission Due to COPD and CHF exacerbation Continue oxygen titrate O2 sats more than 90% Continue IV diuretics, fluid restriction Continue BiPAP during nights and during daytime as needed Nebulizers, IV steroids, IV antibiotics Pulmonary following. Patient currently requiring 4 L O2 -- Acute exacerbation of COPD (chronic obstructive pulmonary disease) Oxygen per nasal cannula 3 L/min. DuoNeb via nebulizer every 4 hours. Albuterol via nebulizer every 4 hours. We will continue the home medication Patient underwent walk test today but resting on room air was noted to be 83% O2 saturation Solu-Medrol discontinued and prednisone taper per pulmonary recommendations as follows 60 daily for 4 days, 40 daily for 40 days, 20 daily for 4 days, then 10 daily for 4 days then stop. Supportive care -- Acute on chronic diastolic congestive heart failure: POA IV diuretics, input output monitoring, daily weight, fluid restriction Cardiology consult if needed Echocardiogram reveals borderline mild concentric left ventricular hypertrophy with left ventricular systolic function normal EF 65% and RVSP 20 mmHg with no apparent pulmonary hypertension --Obesity hypoventilation syndrome; Patient is requiring Ventimask/BiPAP We will consult pulmonary if no improvement Continue current management --Possible obstructive sleep apnea; Due to morbid obesity and obesity hypoventilation syndrome Needs outpatient sleep study, need CPAP/BiPAP Pulmonary consult --ground-level fall on admission Patient is on fall precaution. CT head without contrast no acute abnormality noted Physical therapy, Occupational Therapy evaluation and management DC needs, --Hyponatremia/improving IV normal saline , closely monitor sodium and other electrolytes Consider sodium chloride oral as needed Nephrology consult if no improvement --Hypomagnesemia; Replenished with mag sulfate 2 g IV Monitor electrolytes -- Chronic alcohol alcohol abuse Thiamine folic acid and multivitamins Strongly advised to quit alcohol intake Patient verbalized understanding Strongly advised behavioral modification and quit alcohol intake -- Traumatic head injury/due to fall Initial CT scan of the head shows no acute intracranial abnormality. Patient is on fall precaution. Will consult physical therapy for evaluation. We will monitor the patient closely --Morbid obesity; BMI 41.7 Counseling done advised diet modification exercise as tolerated and weight reduction, And you are medically stable Advised bariatric surgical evaluation as outpatient for weight reduction program when you are medically stable --DVT prophylaxis Lovenox subcu renal dose History Interval history: No new issues overnight Hospitalist Physical - Constitutional Vitals: Temp Pulse Resp BP Pulse Ox 97.9 F 85 20 159/92 92 07/25/22 03:48 07/25/22 09:23 07/25/22 09:23 07/25/22 03:48 07/25/22 09:25 General appearance: Present: no acute distress, well-nourished - EENT Eyes: Present: PERRL, EOM intact ENT: hearing intact, clear oral mucosa, dentition normal - Neck Neck: Present: supple, normal ROM - Respiratory Respiratory effort: normal Respiratory: bilateral: CTA - Cardiovascular Rhythm: regular Heart Sounds: Present: S1 & S2. Absent: gallop, rub - Extremities Extremities: no ischemia, No edema, Full ROM - Abdominal General gastrointestinal: soft, non-tender, non-distended, normal bowel sounds - Integumentary Integumentary: Present: clear, warm, dry - Neurologic Neurologic: CNII-XII intact, moves all extremities HEART Score - HEART Score Troponin: Troponin T < 0.010 ng/mL (0.00-0.029) 07/16/22 23:57 Results - Labs CBC & Chem 7: 07/25/22 04:00 07/25/22 04:00 Labs: Laboratory Last Values WBC 10.5 K/mm3 (4.5-11.0) 07/25/22 04:00 RBC 4.71 M/mm3 (3.65-5.03) 07/25/22 04:00 Hgb 13.3 gm/dl (10.1-14.3) 07/25/22 04:00 Hct 42.9 % (30.3-42.9) 07/25/22 04:00 MCV 91 fl (79-97) 07/25/22 04:00 MCH 28 pg (28-32) 07/25/22 04:00 MCHC 31 % (30-34) 07/25/22 04:00 RDW 14.2 % (13.2-15.2) 07/25/22 04:00 Plt Count 319 K/mm3 (140-440) 07/25/22 04:00 Add Manual Diff Complete 07/22/22 05:47 Total Counted 100 07/22/22 05:47 Seg Neutrophils % Press Breaker 07/25/22 04:00 Seg Neuts % (Manual) 94.0 % (40.0-70.0) H 07/22/22 05:47 Band Neutrophils % 0 % 07/22/22 05:47 Lymphocytes % (Manual) 4.0 % (13.4-35.0) L 07/22/22 05:47 Reactive Lymphs % (Man) 0 % 07/22/22 05:47 Monocytes % (Manual) 2.0 % (0.0-7.3) 07/22/22 05:47 Eosinophils % (Manual) 0 % (0.0-4.3) 07/22/22 05:47 Basophils % (Manual) 0 % (0.0-1.8) 07/22/22 05:47 Metamyelocytes % 0 % 07/22/22 05:47 Myelocytes % 0 % 07/22/22 05:47 Promyelocytes % 0 % 07/22/22 05:47 Blast Cells % 0 % 07/22/22 05:47 Nucleated RBC % Not Reportable 07/22/22 05:47 Seg Neutrophils # Man 9.1 K/mm3 (1.8-7.7) H 07/22/22 05:47 Band Neutrophils # 0.0 K/mm3 07/22/22 05:47 Lymphocytes # (Manual) 0.4 K/mm3 (1.2-5.4) L 07/22/22 05:47 Abs React Lymphs (Man) 0.0 K/mm3 07/22/22 05:47 Monocytes # (Manual) 0.2 K/mm3 (0.0-0.8) 07/22/22 05:47 Eosinophils # (Manual) 0.0 K/mm3 (0.0-0.4) 07/22/22 05:47 Basophils # (Manual) 0.0 K/mm3 (0.0-0.1) 07/22/22 05:47 Metamyelocytes # 0.0 K/mm3 07/22/22 05:47 Myelocytes # 0.0 K/mm3 07/22/22 05:47 Promyelocytes # 0.0 K/mm3 07/22/22 05:47 Blast Cells # 0.0 K/mm3 07/22/22 05:47 WBC Morphology Not Reportable 07/22/22 05:47 Hypersegmented Neuts Not Reportable 07/22/22 05:47 Hyposegmented Neuts Not Reportable 07/22/22 05:47 Hypogranular Neuts Not Reportable 07/22/22 05:47 Smudge Cells Not Reportable 07/22/22 05:47 Toxic Granulation Not Reportable 07/22/22 05:47 Toxic Vacuolation Not Reportable 07/22/22 05:47 Dohle Bodies Not Reportable 07/22/22 05:47 Pelger-Huet Anomaly Not Reportable 07/22/22 05:47 Savannah Rods Not Reportable 07/22/22 05:47 Platelet Estimate Consistent w auto 07/22/22 05:47 Clumped Platelets Not Reportable 07/22/22 05:47 Plt Clumps, EDTA Not Reportable 07/22/22 05:47 Large Platelets Not Reportable 07/22/22 05:47 Giant Platelets Not Reportable 07/22/22 05:47 Platelet Satelliting Not Reportable 07/22/22 05:47 Plt Morphology Comment Not Reportable 07/22/22 05:47 RBC Morphology Not Reportable 07/22/22 05:47 Dimorphic RBCs Not Reportable 07/22/22 05:47 Polychromasia Not Reportable 07/22/22 05:47 Hypochromasia Not Reportable 07/22/22 05:47 Poikilocytosis Not Reportable 07/22/22 05:47 Anisocytosis Not Reportable 07/22/22 05:47 Microcytosis Not Reportable 07/22/22 05:47 Macrocytosis Not Reportable 07/22/22 05:47 Spherocytes Not Reportable 07/22/22 05:47 Pappenheimer Bodies Not Reportable 07/22/22 05:47 Sickle Cells Not Reportable 07/22/22 05:47 Target Cells Not Reportable 07/22/22 05:47 Tear Drop Cells Not Reportable 07/22/22 05:47 Ovalocytes Not Reportable 07/22/22 05:47 Stomatocytes 1+ 07/18/22 10:02 Helmet Cells Not Reportable 07/22/22 05:47 Concepcion-Buell Bodies Not Reportable 07/22/22 05:47 Ozan Rings Not Reportable 07/22/22 05:47 Jameson Cells Not Reportable 07/22/22 05:47 Bite Cells Not Reportable 07/22/22 05:47 Crenated Cell Not Reportable 07/22/22 05:47 Elliptocytes Not Reportable 07/22/22 05:47 Acanthocytes (Spur) Not Reportable 07/22/22 05:47 Rouleaux Not Reportable 07/22/22 05:47 Hemoglobin C Crystals Not Reportable 07/22/22 05:47 Schistocytes Not Reportable 07/22/22 05:47 Malaria parasites Not Reportable 07/22/22 05:47 Dex Bodies Not Reportable 07/22/22 05:47 Hem Pathologist Commnt No 07/22/22 05:47 PT 13.5 Sec. (12.2-14.9) 07/16/22 23:57 INR 0.93 (0.87-1.13) 07/16/22 23:57 ABG pH 7.444 pH Units (7.350-7.450) 07/18/22 19:50 ABG pCO2 48.7 mm Hg 07/18/22 19:50 ABG pO2 61.8 mm Hg (80.0-90.0) L 07/18/22 19:50 ABG HCO3 32.6 mmol/L (20.0-26.0) H 07/18/22 19:50 ABG O2 Saturation 93.9 % (95.0-99.0) L 07/18/22 19:50 ABG Base Excess 7.4 mmol/L (-2.0-3.0) H 07/18/22 19:50 ABG Hemoglobin 13.0 gm/dl (12.0-16.0) 07/18/22 19:50 ABG Carboxyhemoglobin 1.6 % (0.0-5.0) 07/18/22 19:50 ABG Methemoglobin 0.3 % (0.0-1.5) 07/18/22 19:50 Oxyhemoglobin 92.1 % (95.0-99.0) L 07/18/22 19:50 FiO2 45 % 07/18/22 19:50 Sodium 140 mmol/L (137-145) 07/25/22 04:00 Potassium 4.3 mmol/L (3.6-5.0) 07/25/22 04:00 Chloride 90.6 mmol/L (98-107) L 07/25/22 04:00 Carbon Dioxide 38 mmol/L (22-30) H 07/25/22 04:00 Anion Gap 16 mmol/L 07/25/22 04:00 BUN 32 mg/dL (7-17) H 07/25/22 04:00 Creatinine 0.7 mg/dL (0.6-1.2) 07/25/22 04:00 Estimated GFR > 60 ml/min 07/25/22 04:00 BUN/Creatinine Ratio 46 % 07/25/22 04:00 Glucose 155 mg/dL (65-100) H 07/25/22 04:00 POC Glucose 280 mg/dL (70-105) H 07/24/22 20:30 Calcium 8.7 mg/dL (8.4-10.2) 07/25/22 04:00 Magnesium 2.00 mg/dL (1.7-2.3) 07/20/22 Unknown Total Bilirubin 0.20 mg/dL (0.1-1.2) 07/16/22 23:57 AST 24 units/L (5-40) 07/16/22 23:57 ALT 19 units/L (7-56) 07/16/22 23:57 Alkaline Phosphatase 87 units/L (35-129) 07/16/22 23:57 Total Creatine Kinase 65 units/L (30-135) 07/16/22 23:57 Troponin T < 0.010 ng/mL (0.00-0.029) 07/16/22 23:57 Total Protein 6.8 g/dL (6.3-8.2) 07/16/22 23:57 Albumin 4.0 g/dL (3.9-5) 07/16/22 23:57 Albumin/Globulin Ratio 1.4 % 07/16/22 23:57 Urine Color Straw (Yellow) 07/17/22 06:02 Urine Turbidity Clear (Clear) 07/17/22 06:02 Specific [place] (Man) 1.020 (1.003-1.030) 07/17/22 06:02 Ur Protein (Man) 1+ mg/dL (Negative) 07/17/22 06:02 Ur Ketones (Man) Negative (Negative) 07/17/22 06:02 Ur Nitrite (Man) Negative (Negative) 07/17/22 06:02 Urine Bilirubin (Man) Negative (Negative) 07/17/22 06:02 Leukocyte Esterase (Man) Negative (Negative) 07/17/22 06:02 Urine WBC (Auto) 1.0 /HPF (0.0-6.0) 07/17/22 06:02 Urine RBC (Auto) < 1.0 /HPF (0.0-6.0) 07/17/22 06:02 U Epithel Cells (Auto) 1.0 /HPF (0-13.0) 07/17/22 06:02 Urine RBC (Manual) Trace (Negative) 07/17/22 06:02 Granular Casts 9 /LPF 07/17/22 06:02 Salicylates < 0.3 mg/dL (2.8-20.0) L 07/16/22 23:57 Urine Opiates Screen Negative 07/17/22 06:02 Urine Methadone Screen Negative 07/17/22 06:02 Ur Barbiturates Screen Negative 07/17/22 06:02 Ur Phencyclidine Scrn Negative 07/17/22 06:02 Ur Amphetamines Screen Negative 07/17/22 06:02 U Benzodiazepines Scrn Negative 07/17/22 06:02 Urine Cocaine Screen Negative 07/17/22 06:02 U Marijuana (THC) Screen Negative 07/17/22 06:02 Drugs of Abuse Note Disclamer 07/17/22 06:02 Plasma/Serum Alcohol 0.14 % (0-0.07) H 07/16/22 23:57 SARS-CoV-2 (PCR) Negative (Negative) 07/17/22 12:30 Burks/IV: Voiding Method External Female Catheter Active Medications - Current Medications Current Medications: Generic Name Dose Route Start Last Admin Trade Name Freq PRN Reason Stop Dose Admin Acetaminophen 650 mg 07/17/22 05:40 07/19/22 10:47 Acetaminophen 325 Mg Tab PO 650 mg Q4H PRN Administration Pain MILD(1-3)/Fever >100.5/GARDNER Albuterol 2.5 mg 07/17/22 05:40 07/18/22 14:49 Albuterol 2.5 Mg/3 Ml Nebu IH 2.5 mg Q3HRT PRN Administration Shortness Of Breath Albuterol/Ipratropium 1 ampul 07/21/22 20:00 07/25/22 09:20 Ipratropium/Albuterol Sulfate 3 Ml Ampul.Neb IH 1 ampul TIDRT MAIKOL Administration Amlodipine Besylate 5 mg 07/24/22 10:00 07/25/22 08:59 Amlodipine 5 Mg Tab PO 5 mg QDAY MAIKOL Administration Budesonide 0.5 mg 07/23/22 20:00 07/25/22 09:20 Budesonide 0.5 Mg/2 Ml Nebu IH 0.5 mg Q12HRT MAIKOL Administration Famotidine 20 mg 07/17/22 10:00 07/25/22 08:59 Famotidine 20 Mg Tab PO 20 mg BID MAIKOL Administration Furosemide 40 mg 07/18/22 18:00 07/25/22 05:36 Furosemide 40 Mg/4 Ml Inj IV 40 mg 0600,1800 MAIKOL Administration Methylprednisolone Sodium Succinate 40 mg 07/19/22 22:00 07/25/22 05:36 Methylprednisolone Sod Succinate 40 Mg/1 Ml Inj IV 40 mg Q8HR MAIKOL Administration Metoprolol Tartrate 50 mg 07/23/22 18:00 07/25/22 09:00 Metoprolol Tartrate 50 Mg Tab PO 50 mg BID MAIKOL Administration Morphine Sulfate 2 mg 07/17/22 05:40 Morphine 2 Mg/1 Ml Inj IV Q4H PRN Pain, Moderate (4-6) Morphine Sulfate 4 mg 07/17/22 05:40 Morphine 4 Mg/1 Ml Inj IV Q4H PRN Pain , Severe (7-10) Ondansetron HCl 4 mg 07/17/22 05:40 Ondansetron 4 Mg/2 Ml Inj IV Q8H PRN Nausea And Vomiting Sodium Chloride 10 ml 07/17/22 10:00 07/24/22 21:59 Sodium Chloride 0.9% 10 Ml Flush Syringe IV 10 ml BID MAIKOL Administration Sodium Chloride 10 ml 07/17/22 05:40 07/20/22 05:22 Sodium Chloride 0.9% 10 Ml Flush Syringe IV 10 ml PRN PRN Administration LINE FLUSH Sodium Chloride 1 gm 07/17/22 22:00 07/25/22 09:14 Sodium Chloride 1 Gm Tab PO 1 gm BID MAIKOL Administration Nutrition/Malnutrition Assess - Dietary Evaluation Nutrition/Malnutrition Findings: Nutrition Notes Start: 07/24/22 14:10 Freq: Status: Active Protocol: Document 07/24/22 14:10 JAVAN (Rec: 07/24/22 14:17 JAVAN [id number]) Nutrition Notes Need for Assessment generated from: LOS Initial or Follow up Brief Note Current Diagnosis Heart Failure Other Pertinent Diagnosis COPD exacerbation, s/p fall, obesity hypoventilation syndrome Current Diet Cardiac Labs/Tests Reviewed Pertinent Medications Lasix, Solumedrol, 1g NaCl (Na lab was 118 upon admission) Height 5 ft 3.6 in Weight 129.3 kg [place] Body Weight (kg) 53.63 BMI 49.5 Weight Status Morbidly Obese Subjective/Other Information Pt screened for LOS. She reports a "very good" appetite now that she only wears BiPap at night. She consumed 67% of 3 recorded meals. PMHx includes EtOH dependence. Percent of energy/protein needs met: 68% energy 63% pro Burn Absent Trauma Absent Minimum of two criteria No Is patient on ventilator? No Is Patient Ambulatory and/or Out of Bed No REE-([facility]-confined to bed) 2208.252 Kcal/Kg value to use for calculation 13 Approximate Energy Requirements Using 1681 kcal/Kg Calculation Used for Recommendations Kcal/kg Additional Notes Pro needs 1-1.2g/kg adjBW: 91- 110g/day Fluid needs 1ml/kcal Nutrition Intervention Follow-Up By: 07/31/22 Additional Comments F/U: stable intakes, wt
[2022-07-25 11:19] LABS: Basophils % (Manual) 0 % (0.0-1.8); Eosinophils % (Manual) 0 % (0.0-4.3); Platelet Estimate Consistent w Auto; RBC Morphology Normal; Total Cells Counted 100
--- NOTE | 2022-07-25 12:06 | Progress Note ---
Assessment and Plan 61 y/o morbidly female admitted post ground level fall with hematoma, also with chronic respiratory failure, obesity hypoventilation syndrome and possible COPD exacerbation. 07/25/2022: Patient is currently on oxygen 3 L nasal cannula seems to be stable and has improved breathing. Apparently being discharged today. She will need follow-up in our office for complete pulmonary function evaluation and sleep evaluation. 07/24/22: Same recs as below. Given her coverage, will need to check to see if we can do her PSG as an outpatient. She will need a script for symbicort 80 2 puffs BID as outpatient at discharge. Will continue to follow 1. Pulm-Given smoking history, most likely has COPD but needs formal evaluation . Suggest changing to oral prednisone 60 daily and taper as follows: 60 daily for 4 days, 40 daily for 40 days, 20 daily for 4 days, then 10 daily for 4 days then stop. Will add BID Pulmicort and continue scheduled duoneb therapy. Agree with diuretics as patient needs a daily net negative fluid balance but also needs better BP control. Needs outpatient PSG. She also meets criteria for obesity hypoventilation syndrome as well. She will need a walk test prior to discharge to assess exertion and rest oxygen needs. 2. Ok with NIV therapy for now but currently no working diagnosis to obtain NIV prior to discharge. Would need further work up as outpatient 3. Needs weight loss. Should consider evaluation for gastric bypass as outpatient. Thank you for the consult, will continue to follow along with you. Subjective Date of service: 07/25/22 Principal diagnosis: Ground-level fall metabolic encephalopathy hyponatremia Interval history: Patient overall feeling better now on 3 L nasal cannula possible discharge today Objective Vital Signs - 12hr 07/25/22 07/25/22 07/25/22 00:39 03:48 04:24 Temperature 97.9 F Pulse Rate 58 L 67 57 L Pulse Rate [ Anterior Throughout] Respiratory 20 Rate Respiratory Rate [Anterior Throughout] Blood Pressure 159/92 O2 Sat by Pulse 96 Oximetry 07/25/22 07/25/22 09:23 09:25 Temperature Pulse Rate Pulse Rate [ 85 Anterior Throughout] Respiratory Rate Respiratory 20 Rate [Anterior Throughout] Blood Pressure O2 Sat by Pulse 92 Oximetry Constitutional: no acute distress, alert, other (morbidly obese with garibay facies) Eyes: non-icteric ENT: oropharynx moist Neck: supple, other (very large in circumference) Effort: normal Ascultation: Bilateral: diminished breath sounds Percussion: Bilateral: not dull Tactile fremitus: Bilateral: normal Cardiovascular: regular rate and rhythm Gastrointestinal: normoactive bowel sounds, soft Extremities: edema (per patient improved compared to admission) CBC and BMP: 07/25/22 04:00 07/25/22 04:00 ABG, PT/INR, D-dimer: ABG ABG pH 7.444 pH Units (7.350-7.450) 07/18/22 19:50 ABG pCO2 48.7 mm Hg 07/18/22 19:50 ABG pO2 61.8 mm Hg (80.0-90.0) L 07/18/22 19:50 ABG O2 Saturation 93.9 % (95.0-99.0) L 07/18/22 19:50 PT/INR, D-dimer PT 13.5 Sec. (12.2-14.9) 07/16/22 23:57 INR 0.93 (0.87-1.13) 07/16/22 23:57 Abnormal lab findings: Abnormal Labs 07/16/22 07/16/22 07/16/22 23:57 23:57 23:57 WBC 18.9 H Seg Neuts % (Manual) 87.0 H Lymphocytes % (Manual) 6.0 L Monocytes % (Manual) Seg Neutrophils # Man 16.4 H Lymphocytes # (Manual) 1.1 L Monocytes # (Manual) ABG pO2 ABG HCO3 ABG O2 Saturation ABG Base Excess Oxyhemoglobin Sodium Chloride Carbon Dioxide BUN Creatinine Glucose POC Glucose Calcium Magnesium Salicylates < 0.3 L Plasma/Serum Alcohol 0.14 H 07/16/22 07/17/22 07/18/22 23:57 22:18 10:02 WBC Seg Neuts % (Manual) 88.0 H Lymphocytes % (Manual) 4.0 L Monocytes % (Manual) 8.0 H Seg Neutrophils # Man 9.4 H Lymphocytes # (Manual) 0.4 L Monocytes # (Manual) 0.9 H ABG pO2 ABG HCO3 ABG O2 Saturation ABG Base Excess Oxyhemoglobin Sodium 118 L* 130 L D Chloride 78.2 L 90.9 L Carbon Dioxide 31 H BUN 6 L Creatinine 0.5 L Glucose 114 H 120 H POC Glucose Calcium 8.0 L Magnesium Salicylates Plasma/Serum Alcohol 07/18/22 07/18/22 07/18/22 10:02 18:46 19:50 WBC Seg Neuts % (Manual) Lymphocytes % (Manual) Monocytes % (Manual) Seg Neutrophils # Man Lymphocytes # (Manual) Monocytes # (Manual) ABG pO2 61.8 L ABG HCO3 32.6 H ABG O2 Saturation 93.9 L ABG Base Excess 7.4 H Oxyhemoglobin 92.1 L Sodium 134 L Chloride 93.2 L Carbon Dioxide 32 H BUN 4 L Creatinine 0.5 L Glucose POC Glucose 124 H Calcium 8.2 L Magnesium Salicylates Plasma/Serum Alcohol 07/19/22 07/20/22 07/20/22 11:40 11:27 Unknown WBC Seg Neuts % (Manual) Lymphocytes % (Manual) Monocytes % (Manual) Seg Neutrophils # Man Lymphocytes # (Manual) Monocytes # (Manual) ABG pO2 ABG HCO3 ABG O2 Saturation ABG Base Excess Oxyhemoglobin Sodium 134 L Chloride 88.1 L 87.5 L 87.9 L Carbon Dioxide 41 H* D 45 H* 42 H* BUN Creatinine 0.5 L 0.5 L Glucose 195 H 151 H POC Glucose Calcium Magnesium 1.50 L Salicylates Plasma/Serum Alcohol 07/21/22 07/21/22 07/21/22 07:28 12:42 16:39 WBC Seg Neuts % (Manual) Lymphocytes % (Manual) Monocytes % (Manual) Seg Neutrophils # Man Lymphocytes # (Manual) Monocytes # (Manual) ABG pO2 ABG HCO3 ABG O2 Saturation ABG Base Excess Oxyhemoglobin Sodium Chloride Carbon Dioxide BUN Creatinine Glucose POC Glucose 175 H 237 H 133 H Calcium Magnesium Salicylates Plasma/Serum Alcohol 07/21/22 07/22/22 07/22/22 20:59 05:47 05:47 WBC Seg Neuts % (Manual) 94.0 H Lymphocytes % (Manual) 4.0 L Monocytes % (Manual) Seg Neutrophils # Man 9.1 H Lymphocytes # (Manual) 0.4 L Monocytes # (Manual) ABG pO2 ABG HCO3 ABG O2 Saturation ABG Base Excess Oxyhemoglobin Sodium Chloride 89.3 L Carbon Dioxide 40 H BUN 24 H Creatinine Glucose 152 H POC Glucose 160 H Calcium Magnesium Salicylates Plasma/Serum Alcohol 07/22/22 07/23/22 07/23/22 07:25 07:44 11:33 WBC Seg Neuts % (Manual) Lymphocytes % (Manual) Monocytes % (Manual) Seg Neutrophils # Man Lymphocytes # (Manual) Monocytes # (Manual) ABG pO2 ABG HCO3 ABG O2 Saturation ABG Base Excess Oxyhemoglobin Sodium Chloride Carbon Dioxide BUN Creatinine Glucose POC Glucose 156 H 151 H 264 H Calcium Magnesium Salicylates Plasma/Serum Alcohol 07/23/22 07/24/22 07/24/22 16:53 07:47 11:27 WBC Seg Neuts % (Manual) Lymphocytes % (Manual) Monocytes % (Manual) Seg Neutrophils # Man Lymphocytes # (Manual) Monocytes # (Manual) ABG pO2 ABG HCO3 ABG O2 Saturation ABG Base Excess Oxyhemoglobin Sodium Chloride Carbon Dioxide BUN Creatinine Glucose POC Glucose 134 H 164 H 185 H Calcium Magnesium Salicylates Plasma/Serum Alcohol 07/24/22 07/24/22 07/25/22 16:59 20:30 04:00 WBC Seg Neuts % (Manual) 95.0 H Lymphocytes % (Manual) 1.0 L Monocytes % (Manual) Seg Neutrophils # Man 10.0 H Lymphocytes # (Manual) 0.1 L Monocytes # (Manual) ABG pO2 ABG HCO3 ABG O2 Saturation ABG Base Excess Oxyhemoglobin Sodium Chloride Carbon Dioxide BUN Creatinine Glucose POC Glucose 154 H 280 H Calcium Magnesium Salicylates Plasma/Serum Alcohol 07/25/22 04:00 WBC Seg Neuts % (Manual) Lymphocytes % (Manual) Monocytes % (Manual) Seg Neutrophils # Man Lymphocytes # (Manual) Monocytes # (Manual) ABG pO2 ABG HCO3 ABG O2 Saturation ABG Base Excess Oxyhemoglobin Sodium Chloride 90.6 L Carbon Dioxide 38 H BUN 32 H Creatinine Glucose 155 H POC Glucose Calcium Magnesium Salicylates Plasma/Serum Alcohol
[2022-07-26] MEDS: FUROSEMIDE 40 MG/4 ML INJ IV SCH ×2 (05:45→18:57)
--- NOTE | 2022-07-26 08:04 | Progress Note ---
Assessment and Plan Assessment and plan: 61-year-old male patient with significant past medical history of chronic alcohol use was admitted through emergency room with ground-level fall --Acute hypoxic respiratory failure; requiring BiPAP Requiring supplemental oxygen upon admission Etiology is multifactorial secondary to COPD, diastolic heart failure, OHS, MARTINEZ Continue oxygen titrate O2 sats more than 90% Continue IV diuretics, fluid restriction Continue BiPAP during nights and during daytime as needed Nebulizers, IV steroids, IV antibiotics, diuresis Pulmonary following. Patient currently requiring 3 L O2 -- Acute exacerbation of COPD (chronic obstructive pulmonary disease) Oxygen per nasal cannula 3 L/min. DuoNeb via nebulizer every 4 hours. Albuterol via nebulizer every 4 hours. We will continue the home medication Patient underwent walk test today but resting on room air was noted to be 83% O2 saturation Solu-Medrol discontinued and prednisone taper per pulmonary recommendations as follows 60 daily for 4 days, 40 daily for 40 days, 20 daily for 4 days, then 10 daily for 4 days then stop. Supportive care -- Acute on chronic diastolic congestive heart failure: POA IV diuretics, input output monitoring, daily weight, fluid restriction Cardiology consult if needed Echocardiogram reveals borderline mild concentric left ventricular hypertrophy with left ventricular systolic function normal EF 65% and RVSP 20 mmHg with no apparent pulmonary hypertension --Obesity hypoventilation syndrome; Patient is requiring 3 L O2 during the day/tolerating CPAP at night Continue current management --Possible obstructive sleep apnea; Due to morbid obesity and obesity hypoventilation syndrome Needs outpatient sleep study, need CPAP/BiPAP Pulmonary following --ground-level fall on admission Patient is on fall precaution. CT head without contrast no acute abnormality noted Physical therapy, Occupational Therapy evaluation and management DC needs, --Hyponatremia/improving IV normal saline , closely monitor sodium and other electrolytes Consider sodium chloride oral as needed Nephrology consult if no improvement --Hypomagnesemia; Replenished with mag sulfate 2 g IV Monitor electrolytes -- Chronic alcohol alcohol abuse Thiamine folic acid and multivitamins Strongly advised to quit alcohol intake Patient verbalized understanding Strongly advised behavioral modification and quit alcohol intake -- Traumatic head injury/due to fall Initial CT scan of the head shows no acute intracranial abnormality. Patient is on fall precaution. Will consult physical therapy for evaluation. We will monitor the patient closely --Morbid obesity; BMI 41.7 Counseling done advised diet modification exercise as tolerated and weight redu ction, And you are medically stable Advised bariatric surgical evaluation as outpatient for weight reduction program when you are medically stable --DVT prophylaxis Lovenox subcu renal dose History Interval history: No new issues overnight Hospitalist Physical - Constitutional Vitals: Temp Pulse Resp BP Pulse Ox 97.4 F L 67 21 138/75 91 07/26/22 04:13 07/26/22 04:14 07/26/22 04:13 07/26/22 04:13 07/26/22 04:13 General appearance: Present: no acute distress, well-nourished - EENT Eyes: Present: PERRL, EOM intact ENT: hearing intact, clear oral mucosa, dentition normal - Neck Neck: Present: supple, normal ROM - Respiratory Respiratory effort: normal Respiratory: bilateral: CTA - Cardiovascular Rhythm: regular Heart Sounds: Present: S1 & S2. Absent: gallop, rub - Extremities Extremities: no ischemia, No edema, Full ROM - Abdominal General gastrointestinal: soft, non-tender, non-distended, normal bowel sounds - Integumentary Integumentary: Present: clear, warm, dry - Neurologic Neurologic: CNII-XII intact, moves all extremities HEART Score - HEART Score Troponin: Troponin T < 0.010 ng/mL (0.00-0.029) 07/16/22 23:57 Results - Labs CBC & Chem 7: 07/25/22 04:00 07/25/22 04:00 Labs: Laboratory Last Values WBC 10.5 K/mm3 (4.5-11.0) 07/25/22 04:00 RBC 4.71 M/mm3 (3.65-5.03) 07/25/22 04:00 Hgb 13.3 gm/dl (10.1-14.3) 07/25/22 04:00 Hct 42.9 % (30.3-42.9) 07/25/22 04:00 MCV 91 fl (79-97) 07/25/22 04:00 MCH 28 pg (28-32) 07/25/22 04:00 MCHC 31 % (30-34) 07/25/22 04:00 RDW 14.2 % (13.2-15.2) 07/25/22 04:00 Plt Count 319 K/mm3 (140-440) 07/25/22 04:00 Add Manual Diff Complete 07/25/22 04:00 Total Counted 100 07/25/22 04:00 Seg Neutrophils % Resident Services Director 07/25/22 04:00 Seg Neuts % (Manual) 95.0 % (40.0-70.0) H 07/25/22 04:00 Band Neutrophils % 0 % 07/25/22 04:00 Lymphocytes % (Manual) 1.0 % (13.4-35.0) L 07/25/22 04:00 Reactive Lymphs % (Man) 0 % 07/25/22 04:00 Monocytes % (Manual) 4.0 % (0.0-7.3) 07/25/22 04:00 Eosinophils % (Manual) 0 % (0.0-4.3) 07/25/22 04:00 Basophils % (Manual) 0 % (0.0-1.8) 07/25/22 04:00 Metamyelocytes % 0 % 07/25/22 04:00 Myelocytes % 0 % 07/25/22 04:00 Promyelocytes % 0 % 07/25/22 04:00 Blast Cells % 0 % 07/25/22 04:00 Nucleated RBC % Not Reportable 07/25/22 04:00 Seg Neutrophils # Man 10.0 K/mm3 (1.8-7.7) H 07/25/22 04:00 Band Neutrophils # 0.0 K/mm3 07/25/22 04:00 Lymphocytes # (Manual) 0.1 K/mm3 (1.2-5.4) L 07/25/22 04:00 Abs React Lymphs (Man) 0.0 K/mm3 07/25/22 04:00 Monocytes # (Manual) 0.4 K/mm3 (0.0-0.8) 07/25/22 04:00 Eosinophils # (Manual) 0.0 K/mm3 (0.0-0.4) 07/25/22 04:00 Basophils # (Manual) 0.0 K/mm3 (0.0-0.1) 07/25/22 04:00 Metamyelocytes # 0.0 K/mm3 07/25/22 04:00 Myelocytes # 0.0 K/mm3 07/25/22 04:00 Promyelocytes # 0.0 K/mm3 07/25/22 04:00 Blast Cells # 0.0 K/mm3 07/25/22 04:00 WBC Morphology Not Reportable 07/25/22 04:00 WBC Morphology TNR 07/25/22 04:00 Hypersegmented Neuts Not Reportable 07/25/22 04:00 Hyposegmented Neuts Not Reportable 07/25/22 04:00 Hypogranular Neuts Not Reportable 07/25/22 04:00 Smudge Cells Not Reportable 07/25/22 04:00 Toxic Granulation Not Reportable 07/25/22 04:00 Toxic Vacuolation Not Reportable 07/25/22 04:00 Dohle Bodies Not Reportable 07/25/22 04:00 Pelger-Huet Anomaly Not Reportable 07/25/22 04:00 Savannah Rods Not Reportable 07/25/22 04:00 Platelet Estimate Consistent w auto 07/25/22 04:00 Clumped Platelets Not Reportable 07/25/22 04:00 Plt Clumps, EDTA Not Reportable 07/25/22 04:00 Large Platelets Not Reportable 07/25/22 04:00 Giant Platelets Not Reportable 07/25/22 04:00 Platelet Satelliting Not Reportable 07/25/22 04:00 Plt Morphology Comment Not Reportable 07/25/22 04:00 RBC Morphology Normal 07/25/22 04:00 Dimorphic RBCs Not Reportable 07/25/22 04:00 Polychromasia Not Reportable 07/25/22 04:00 Hypochromasia Not Reportable 07/25/22 04:00 Poikilocytosis Not Reportable 07/25/22 04:00 Anisocytosis Not Reportable 07/25/22 04:00 Microcytosis Not Reportable 07/25/22 04:00 Macrocytosis Not Reportable 07/25/22 04:00 Spherocytes Not Reportable 07/25/22 04:00 Pappenheimer Bodies Not Reportable 07/25/22 04:00 Sickle Cells Not Reportable 07/25/22 04:00 Target Cells Not Reportable 07/25/22 04:00 Tear Drop Cells Not Reportable 07/25/22 04:00 Ovalocytes Not Reportable 07/25/22 04:00 Stomatocytes 1+ 07/18/22 10:02 Helmet Cells Not Reportable 07/25/22 04:00 Concepcion-Leedey Bodies Not Reportable 07/25/22 04:00 Devers Rings Not Reportable 07/25/22 04:00 Jameson Cells Not Reportable 07/25/22 04:00 Bite Cells Not Reportable 07/25/22 04:00 Crenated Cell Not Reportable 07/25/22 04:00 Elliptocytes Not Reportable 07/25/22 04:00 Acanthocytes (Spur) Not Reportable 07/25/22 04:00 Rouleaux Not Reportable 07/25/22 04:00 Hemoglobin C Crystals Not Reportable 07/25/22 04:00 Schistocytes Not Reportable 07/25/22 04:00 Malaria parasites Not Reportable 07/25/22 04:00 Dex Bodies Not Reportable 07/25/22 04:00 Hem Pathologist Commnt No 07/25/22 04:00 PT 13.5 Sec. (12.2-14.9) 07/16/22 23:57 INR 0.93 (0.87-1.13) 07/16/22 23:57 ABG pH 7.444 pH Units (7.350-7.450) 07/18/22 19:50 ABG pCO2 48.7 mm Hg 07/18/22 19:50 ABG pO2 61.8 mm Hg (80.0-90.0) L 07/18/22 19:50 ABG HCO3 32.6 mmol/L (20.0-26.0) H 07/18/22 19:50 ABG O2 Saturation 93.9 % (95.0-99.0) L 07/18/22 19:50 ABG Base Excess 7.4 mmol/L (-2.0-3.0) H 07/18/22 19:50 ABG Hemoglobin 13.0 gm/dl (12.0-16.0) 07/18/22 19:50 ABG Carboxyhemoglobin 1.6 % (0.0-5.0) 07/18/22 19:50 ABG Methemoglobin 0.3 % (0.0-1.5) 07/18/22 19:50 Oxyhemoglobin 92.1 % (95.0-99.0) L 07/18/22 19:50 FiO2 45 % 07/18/22 19:50 Sodium 140 mmol/L (137-145) 07/25/22 04:00 Potassium 4.3 mmol/L (3.6-5.0) 07/25/22 04:00 Chloride 90.6 mmol/L (98-107) L 07/25/22 04:00 Carbon Dioxide 38 mmol/L (22-30) H 07/25/22 04:00 Anion Gap 16 mmol/L 07/25/22 04:00 BUN 32 mg/dL (7-17) H 07/25/22 04:00 Creatinine 0.7 mg/dL (0.6-1.2) 07/25/22 04:00 Estimated GFR > 60 ml/min 07/25/22 04:00 BUN/Creatinine Ratio 46 % 07/25/22 04:00 Glucose 155 mg/dL (65-100) H 07/25/22 04:00 POC Glucose 208 mg/dL (70-105) H 07/25/22 19:58 Calcium 8.7 mg/dL (8.4-10.2) 07/25/22 04:00 Magnesium 2.00 mg/dL (1.7-2.3) 07/20/22 Unknown Total Bilirubin 0.20 mg/dL (0.1-1.2) 07/16/22 23:57 AST 24 units/L (5-40) 07/16/22 23:57 ALT 19 units/L (7-56) 07/16/22 23:57 Alkaline Phosphatase 87 units/L (35-129) 07/16/22 23:57 Total Creatine Kinase 65 units/L (30-135) 07/16/22 23:57 Troponin T < 0.010 ng/mL (0.00-0.029) 07/16/22 23:57 Total Protein 6.8 g/dL (6.3-8.2) 07/16/22 23:57 Albumin 4.0 g/dL (3.9-5) 07/16/22 23:57 Albumin/Globulin Ratio 1.4 % 07/16/22 23:57 Urine Color Straw (Yellow) 07/17/22 06:02 Urine Turbidity Clear (Clear) 07/17/22 06:02 Specific [place] (Man) 1.020 (1.003-1.030) 07/17/22 06:02 Ur Protein (Man) 1+ mg/dL (Negative) 07/17/22 06:02 Ur Ketones (Man) Negative (Negative) 07/17/22 06:02 Ur Nitrite (Man) Negative (Negative) 07/17/22 06:02 Urine Bilirubin (Man) Negative (Negative) 07/17/22 06:02 Leukocyte Esterase (Man) Negative (Negative) 07/17/22 06:02 Urine WBC (Auto) 1.0 /HPF (0.0-6.0) 07/17/22 06:02 Urine RBC (Auto) < 1.0 /HPF (0.0-6.0) 07/17/22 06:02 U Epithel Cells (Auto) 1.0 /HPF (0-13.0) 07/17/22 06:02 Urine RBC (Manual) Trace (Negative) 07/17/22 06:02 Granular Casts 9 /LPF 07/17/22 06:02 Salicylates < 0.3 mg/dL (2.8-20.0) L 07/16/22 23:57 Urine Opiates Screen Negative 07/17/22 06:02 Urine Methadone Screen Negative 07/17/22 06:02 Ur Barbiturates Screen Negative 07/17/22 06:02 Ur Phencyclidine Scrn Negative 07/17/22 06:02 Ur Amphetamines Screen Negative 07/17/22 06:02 U Benzodiazepines Scrn Negative 07/17/22 06:02 Urine Cocaine Screen Negative 07/17/22 06:02 U Marijuana (THC) Screen Negative 07/17/22 06:02 Drugs of Abuse Note Disclamer 07/17/22 06:02 Plasma/Serum Alcohol 0.14 % (0-0.07) H 07/16/22 23:57 SARS-CoV-2 (PCR) Negative (Negative) 07/17/22 12:30 Burks/IV: Voiding Method External Female Catheter Active Medications - Current Medications Current Medications: Generic Name Dose Route Start Last Admin Trade Name Freq PRN Reason Stop Dose Admin Acetaminophen 650 mg 07/17/22 05:40 07/19/22 10:47 Acetaminophen 325 Mg Tab PO 650 mg Q4H PRN Administration Pain MILD(1-3)/Fever >100.5/GARDNER Albuterol 2.5 mg 07/17/22 05:40 07/18/22 14:49 Albuterol 2.5 Mg/3 Ml Nebu IH 2.5 mg Q3HRT PRN Administration Shortness Of Breath Albuterol/Ipratropium 1 ampul 07/21/22 20:00 07/25/22 22:06 Ipratropium/Albuterol Sulfate 3 Ml Ampul.Neb IH 1 ampul TIDRT MAIKOL Administration Amlodipine Besylate 5 mg 07/24/22 10:00 07/25/22 08:59 Amlodipine 5 Mg Tab PO 5 mg QDAY MAIKOL Administration Budesonide 0.5 mg 07/23/22 20:00 07/25/22 22:06 Budesonide 0.5 Mg/2 Ml Nebu IH 0.5 mg Q12HRT MAIKOL Administration Famotidine 20 mg 07/17/22 10:00 07/25/22 22:33 Famotidine 20 Mg Tab PO 20 mg BID MAIKOL Administration Furosemide 40 mg 07/18/22 18:00 07/26/22 05:45 Furosemide 40 Mg/4 Ml Inj IV 40 mg 0600,1800 MAIKOL Administration Metoprolol Tartrate 50 mg 07/23/22 18:00 07/25/22 22:34 Metoprolol Tartrate 50 Mg Tab PO 50 mg BID MAIKOL Administration Morphine Sulfate 2 mg 07/17/22 05:40 Morphine 2 Mg/1 Ml Inj IV Q4H PRN Pain, Moderate (4-6) Morphine Sulfate 4 mg 07/17/22 05:40 Morphine 4 Mg/1 Ml Inj IV Q4H PRN Pain , Severe (7-10) Ondansetron HCl 4 mg 07/17/22 05:40 Ondansetron 4 Mg/2 Ml Inj IV Q8H PRN Nausea And Vomiting Prednisone 20 mg 07/26/22 10:00 Prednisone 20 Mg Tab PO QDAY MAIKOL Sodium Chloride 10 ml 07/17/22 10:00 07/26/22 05:45 Sodium Chloride 0.9% 10 Ml Flush Syringe IV 10 ml BID MAIKOL Administration Sodium Chloride 10 ml 07/17/22 05:40 07/20/22 05:22 Sodium Chloride 0.9% 10 Ml Flush Syringe IV 10 ml PRN PRN Administration LINE FLUSH Sodium Chloride 1 gm 07/17/22 22:00 07/25/22 22:33 Sodium Chloride 1 Gm Tab PO 1 gm BID MAIKOL Administration Nutrition/Malnutrition Assess - Dietary Evaluation Nutrition/Malnutrition Findings: Nutrition Notes Start: 07/24/22 14:10 Freq: Status: Active Protocol: Document 07/24/22 14:10 JAVAN (Rec: 07/24/22 14:17 CHARMAINEWU [id number]) Nutrition Notes Need for Assessment generated from: LOS Initial or Follow up Brief Note Current Diagnosis Heart Failure Other Pertinent Diagnosis COPD exacerbation, s/p fall, obesity hypoventilation syndrome Current Diet Cardiac Labs/Tests Reviewed Pertinent Medications Lasix, Solumedrol, 1g NaCl (Na lab was 118 upon admission) Height 5 ft 3.6 in Weight 129.3 kg [place] Body Weight (kg) 53.63 BMI 49.5 Weight Status Morbidly Obese Subjective/Other Information Pt screened for LOS. She reports a "very good" appetite now that she only wears BiPap at night. She consumed 67% of 3 recorded meals. PMHx includes EtOH dependence. Percent of energy/protein needs met: 68% energy 63% pro Burn Absent Trauma Absent Minimum of two criteria No Is patient on ventilator? No Is Patient Ambulatory and/or Out of Bed No REE-([facility]-confined to bed) 2208.252 Kcal/Kg value to use for calculation 13 Approximate Energy Requirements Using 1681 kcal/Kg Calculation Used for Recommendations Kcal/kg Additional Notes Pro needs 1-1.2g/kg adjBW: 91- 110g/day Fluid needs 1ml/kcal Nutrition Intervention Follow-Up By: 07/31/22 Additional Comments F/U: stable intakes, wt
[2022-07-26] MEDS: IPRATROPIUM/ALBUTEROL SULFATE 3 ML AMPUL.NEB IH SCH ×3 (09:56→21:21)
[2022-07-26] MEDS: BUDESONIDE 0.5 MG/2 ML NEBU IH SCH ×2 (09:57→21:21)
--- NOTE | 2022-07-26 12:10 | Progress Note ---
Assessment and Plan 61 y/o morbidly female admitted post ground level fall with hematoma, also with chronic respiratory failure, obesity hypoventilation syndrome and possible COPD exacerbation. 07/26/2022: No significant change continue with the current regimen. We will follow as outpatient. 07/25/2022: Patient is currently on oxygen 3 L nasal cannula seems to be stable and has improved breathing. Apparently being discharged today. She will need follow-up in our office for complete pulmonary function evaluation and sleep evaluation. 07/24/22: Same recs as below. Given her coverage, will need to check to see if we can do her PSG as an outpatient. She will need a script for symbicort 80 2 puffs BID as outpatient at discharge. Will continue to follow 1. Pulm-Given smoking history, most likely has COPD but needs formal evaluation . Suggest changing to oral prednisone 60 daily and taper as follows: 60 daily for 4 days, 40 daily for 40 days, 20 daily for 4 days, then 10 daily for 4 days then stop. Will add BID Pulmicort and continue scheduled duoneb therapy. Agree with diuretics as patient needs a daily net negative fluid balance but also needs better BP control. Needs outpatient PSG. She also meets criteria for obesity hypoventilation syndrome as well. She will need a walk test prior to discharge to assess exertion and rest oxygen needs. 2. Ok with NIV therapy for now but currently no working diagnosis to obtain NIV prior to discharge. Would need further work up as outpatient 3. Needs weight loss. Should consider evaluation for gastric bypass as outpatient. Thank you for the consult, will continue to follow along with you. Subjective Date of service: 07/26/22 Principal diagnosis: Ground-level fall metabolic encephalopathy hyponatremia Interval history: Patient overall feeling better now on 3 L nasal cannula. Overall reports breathing to be slightly better Objective Vital Signs - 12hr 07/26/22 07/26/22 07/26/22 00:15 00:16 04:13 Temperature 97.4 F L Pulse Rate 72 70 66 Pulse Rate [ Anterior Throughout] Respiratory 19 21 Rate Respiratory Rate [Anterior Throughout] Blood Pressure 124/81 138/75 O2 Sat by Pulse 96 91 Oximetry 07/26/22 07/26/22 07/26/22 04:14 07:58 09:55 Temperature 98.6 F Pulse Rate 67 70 Pulse Rate [ 60 Anterior Throughout] Respiratory 18 Rate Respiratory 18 Rate [Anterior Throughout] Blood Pressure 134/88 O2 Sat by Pulse 92 Oximetry 07/26/22 07/26/22 10:11 10:25 Temperature Pulse Rate Pulse Rate [ Anterior Throughout] Respiratory Rate Respiratory Rate [Anterior Throughout] Blood Pressure O2 Sat by Pulse 95 96 Oximetry Constitutional: no acute distress, alert, other (morbidly obese with garibay facies) Eyes: non-icteric ENT: oropharynx moist Neck: supple, other (very large in circumference) Effort: normal Ascultation: Bilateral: diminished breath sounds Percussion: Bilateral: not dull Tactile fremitus: Bilateral: normal Cardiovascular: regular rate and rhythm Gastrointestinal: normoactive bowel sounds, soft Extremities: edema (per patient improved compared to admission) CBC and BMP: 07/25/22 04:00 07/25/22 04:00 ABG, PT/INR, D-dimer: ABG ABG pH 7.444 pH Units (7.350-7.450) 07/18/22 19:50 ABG pCO2 48.7 mm Hg 07/18/22 19:50 ABG pO2 61.8 mm Hg (80.0-90.0) L 07/18/22 19:50 ABG O2 Saturation 93.9 % (95.0-99.0) L 07/18/22 19:50 PT/INR, D-dimer PT 13.5 Sec. (12.2-14.9) 07/16/22 23:57 INR 0.93 (0.87-1.13) 07/16/22 23:57 Abnormal lab findings: Abnormal Labs 07/16/22 07/16/22 07/16/22 23:57 23:57 23:57 WBC 18.9 H Seg Neuts % (Manual) 87.0 H Lymphocytes % (Manual) 6.0 L Monocytes % (Manual) Seg Neutrophils # Man 16.4 H Lymphocytes # (Manual) 1.1 L Monocytes # (Manual) ABG pO2 ABG HCO3 ABG O2 Saturation ABG Base Excess Oxyhemoglobin Sodium Chloride Carbon Dioxide BUN Creatinine Glucose POC Glucose Calcium Magnesium Salicylates < 0.3 L Plasma/Serum Alcohol 0.14 H 07/16/22 07/17/22 07/18/22 23:57 22:18 10:02 WBC Seg Neuts % (Manual) 88.0 H Lymphocytes % (Manual) 4.0 L Monocytes % (Manual) 8.0 H Seg Neutrophils # Man 9.4 H Lymphocytes # (Manual) 0.4 L Monocytes # (Manual) 0.9 H ABG pO2 ABG HCO3 ABG O2 Saturation ABG Base Excess Oxyhemoglobin Sodium 118 L* 130 L D Chloride 78.2 L 90.9 L Carbon Dioxide 31 H BUN 6 L Creatinine 0.5 L Glucose 114 H 120 H POC Glucose Calcium 8.0 L Magnesium Salicylates Plasma/Serum Alcohol 07/18/22 07/18/22 07/18/22 10:02 18:46 19:50 WBC Seg Neuts % (Manual) Lymphocytes % (Manual) Monocytes % (Manual) Seg Neutrophils # Man Lymphocytes # (Manual) Monocytes # (Manual) ABG pO2 61.8 L ABG HCO3 32.6 H ABG O2 Saturation 93.9 L ABG Base Excess 7.4 H Oxyhemoglobin 92.1 L Sodium 134 L Chloride 93.2 L Carbon Dioxide 32 H BUN 4 L Creatinine 0.5 L Glucose POC Glucose 124 H Calcium 8.2 L Magnesium Salicylates Plasma/Serum Alcohol 07/19/22 07/20/22 07/20/22 11:40 11:27 Unknown WBC Seg Neuts % (Manual) Lymphocytes % (Manual) Monocytes % (Manual) Seg Neutrophils # Man Lymphocytes # (Manual) Monocytes # (Manual) ABG pO2 ABG HCO3 ABG O2 Saturation ABG Base Excess Oxyhemoglobin Sodium 134 L Chloride 88.1 L 87.5 L 87.9 L Carbon Dioxide 41 H* D 45 H* 42 H* BUN Creatinine 0.5 L 0.5 L Glucose 195 H 151 H POC Glucose Calcium Magnesium 1.50 L Salicylates Plasma/Serum Alcohol 07/21/22 07/21/22 07/21/22 07:28 12:42 16:39 WBC Seg Neuts % (Manual) Lymphocytes % (Manual) Monocytes % (Manual) Seg Neutrophils # Man Lymphocytes # (Manual) Monocytes # (Manual) ABG pO2 ABG HCO3 ABG O2 Saturation ABG Base Excess Oxyhemoglobin Sodium Chloride Carbon Dioxide BUN Creatinine Glucose POC Glucose 175 H 237 H 133 H Calcium Magnesium Salicylates Plasma/Serum Alcohol 07/21/22 07/22/22 07/22/22 20:59 05:47 05:47 WBC Seg Neuts % (Manual) 94.0 H Lymphocytes % (Manual) 4.0 L Monocytes % (Manual) Seg Neutrophils # Man 9.1 H Lymphocytes # (Manual) 0.4 L Monocytes # (Manual) ABG pO2 ABG HCO3 ABG O2 Saturation ABG Base Excess Oxyhemoglobin Sodium Chloride 89.3 L Carbon Dioxide 40 H BUN 24 H Creatinine Glucose 152 H POC Glucose 160 H Calcium Magnesium Salicylates Plasma/Serum Alcohol 07/22/22 07/23/22 07/23/22 07:25 07:44 11:33 WBC Seg Neuts % (Manual) Lymphocytes % (Manual) Monocytes % (Manual) Seg Neutrophils # Man Lymphocytes # (Manual) Monocytes # (Manual) ABG pO2 ABG HCO3 ABG O2 Saturation ABG Base Excess Oxyhemoglobin Sodium Chloride Carbon Dioxide BUN Creatinine Glucose POC Glucose 156 H 151 H 264 H Calcium Magnesium Salicylates Plasma/Serum Alcohol 07/23/22 07/24/22 07/24/22 16:53 07:47 11:27 WBC Seg Neuts % (Manual) Lymphocytes % (Manual) Monocytes % (Manual) Seg Neutrophils # Man Lymphocytes # (Manual) Monocytes # (Manual) ABG pO2 ABG HCO3 ABG O2 Saturation ABG Base Excess Oxyhemoglobin Sodium Chloride Carbon Dioxide BUN Creatinine Glucose POC Glucose 134 H 164 H 185 H Calcium Magnesium Salicylates Plasma/Serum Alcohol 07/24/22 07/24/22 07/25/22 16:59 20:30 04:00 WBC Seg Neuts % (Manual) 95.0 H Lymphocytes % (Manual) 1.0 L Monocytes % (Manual) Seg Neutrophils # Man 10.0 H Lymphocytes # (Manual) 0.1 L Monocytes # (Manual) ABG pO2 ABG HCO3 ABG O2 Saturation ABG Base Excess Oxyhemoglobin Sodium Chloride Carbon Dioxide BUN Creatinine Glucose POC Glucose 154 H 280 H Calcium Magnesium Salicylates Plasma/Serum Alcohol 07/25/22 07/25/22 07/25/22 04:00 07:57 11:25 WBC Seg Neuts % (Manual) Lymphocytes % (Manual) Monocytes % (Manual) Seg Neutrophils # Man Lymphocytes # (Manual) Monocytes # (Manual) ABG pO2 ABG HCO3 ABG O2 Saturation ABG Base Excess Oxyhemoglobin Sodium Chloride 90.6 L Carbon Dioxide 38 H BUN 32 H Creatinine Glucose 155 H POC Glucose 161 H 231 H Calcium Magnesium Salicylates Plasma/Serum Alcohol 09/17/22 09/17/22 15:16 19:58 WBC Seg Neuts % (Manual) Lymphocytes % (Manual) Monocytes % (Manual) Seg Neutrophils # Man Lymphocytes # (Manual) Monocytes # (Manual) ABG pO2 ABG HCO3 ABG O2 Saturation ABG Base Excess Oxyhemoglobin Sodium Chloride Carbon Dioxide BUN Creatinine Glucose POC Glucose 180 H 208 H Calcium Magnesium Salicylates Plasma/Serum Alcohol
[2022-07-26] MEDS: FAMOTIDINE 20 MG TAB PO SCH ×2 (12:16→21:41)
[2022-07-26] MEDS: SODIUM CHLORIDE 1 GM TAB PO SCH ×2 (12:16→21:41)
[2022-07-26] MEDS: METOPROLOL TARTRATE 50 MG TAB PO SCH ×2 (12:16→21:41)
[2022-07-26] MEDS: amLODIPine 5 MG TAB PO SCH (12:16)
[2022-07-26] MEDS: predniSONE 20 MG TAB PO SCH (12:16)
[2022-07-27 05:27] LABS: Basophils % (Auto) 0.4 % (0.0-1.8); Eosinophils # (Auto) 0.1 K/mm3 (0.0-0.4); Eosinophils % (Auto) 0.6 % (0.0-4.3); Hematocrit 41.3 % (30.3-42.9); Hemoglobin 13.2 gm/dl (10.1-14.3); Lymphocytes # (Auto) 1.1 K/mm3 (1.2-5.4); Lymphocytes % (Auto) 9.5 % (13.4-35.0); Mean Corpuscular HGB Conc 32 % (30-34); Mean Corpuscular Volume 90 fl (79-97); Monocytes % (Auto) 9.1 % (0.0-7.3); Platelet Count 271 K/mm3 (140-440); Red Blood Count 4.59 M/mm3 (3.65-5.03); Red Cell Distribution Width 14.1 % (13.2-15.2)
[2022-07-27 05:31] LABS: Blood Urea Nitrogen 30 mg/dL (7-17); Calcium 8.2 mg/dL (8.4-10.2); Hemolysis Index 26
[2022-07-27 05:32] LABS: BUN/Creatinine Ratio 50
[2022-07-27] MEDS: FUROSEMIDE 40 MG/4 ML INJ IV SCH ×2 (05:53→17:21)
--- NOTE | 2022-07-27 09:24 | Progress Note ---
Assessment and Plan Assessment and plan: 61-year-old male patient with significant past medical history of chronic alcohol use was admitted through emergency room with ground-level fall --Acute hypoxic respiratory failure; requiring BiPAP Requiring supplemental oxygen upon admission Etiology is multifactorial secondary to COPD, diastolic heart failure, OHS, MARTINEZ Continue oxygen titrate O2 sats more than 90% Continue IV diuretics, fluid restriction Continue BiPAP during nights and during daytime as needed Nebulizers, IV steroids, IV antibiotics, diuresis Pulmonary following. Patient currently requiring 3 L O2--patient reports previously being on oxygen July 2021 to November 2021. Patient reports she was on 3 L O2 at that time. However, patient never followed up with pulmonary and did not have her oxygen renewed. I suspect patient will need to discharge home with oxygen again and have closer outpatient follow-up with pulmonary. -- Acute exacerbation of COPD (chronic obstructive pulmonary disease) Oxygen per nasal cannula 3 L/min. DuoNeb via nebulizer every 4 hours. Albuterol via nebulizer every 4 hours. We will continue the home medication Patient underwent walk test today but resting on room air was noted to be 83% O2 saturation Solu-Medrol discontinued and prednisone taper per pulmonary recommendations as follows 60 daily for 4 days, 40 daily for 40 days, 20 daily for 4 days, then 10 daily for 4 days then stop. Supportive care -- Acute on chronic diastolic congestive heart failure: POA IV diuretics, input output monitoring, daily weight, fluid restriction Cardiology consult if needed Echocardiogram reveals borderline mild concentric left ventricular hypertrophy with left ventricular systolic function normal EF 65% and RVSP 20 mmHg with no apparent pulmonary hypertension --Obesity hypoventilation syndrome; Patient is requiring 3 L O2 during the day/tolerating CPAP at night Continue current management --Possible obstructive sleep apnea; Due to morbid obesity and obesity hypoventilation syndrome Needs outpatient sleep study, need CPAP/BiPAP Pulmonary following --ground-level fall on admission Patient is on fall precaution. CT head without contrast no acute abnormality noted Physical therapy, Occupational Therapy evaluation and management DC needs, --Hyponatremia/improving IV normal saline , closely monitor sodium and other electrolytes Consider sodium chloride oral as needed Nephrology consult if no improvement --Hypomagnesemia; Replenished with mag sulfate 2 g IV Monitor electrolytes -- Chronic alcohol alcohol abuse Thiamine folic acid and multivitamins Strongly advised to quit alcohol intake Patient verbalized understanding Strongly advised behavioral modification and quit alcohol intake -- Traumatic head injury/due to fall Initial CT scan of the head shows no acute intracranial abnormality. Patient is on fall precaution. Will consult physical therapy for evaluation. We will monitor the patient closely --Morbid obesity; BMI 41.7 Counseling done advised diet modification exercise as tolerated and weight reduction, And you are medically stable Advised bariatric surgical evaluation as outpatient for weight reduction program when you are medically stable --DVT prophylaxis Lovenox subcu renal dose History Interval history: No new issues overnight Hospitalist Physical - Constitutional Vitals: Temp Pulse Resp BP Pulse Ox 98.9 F 68 20 127/83 91 07/27/22 07:42 07/27/22 07:42 07/27/22 03:39 07/27/22 07:42 07/27/22 07:42 General appearance: Present: no acute distress, well-nourished - EENT Eyes: Present: PERRL, EOM intact ENT: hearing intact, clear oral mucosa, dentition normal - Neck Neck: Present: supple, normal ROM - Respiratory Respiratory effort: normal Respiratory: bilateral: CTA - Cardiovascular Rhythm: regular Heart Sounds: Present: S1 & S2. Absent: gallop, rub - Extremities Extremities: no ischemia, No edema, Full ROM - Abdominal General gastrointestinal: soft, non-tender, non-distended, normal bowel sounds - Integumentary Integumentary: Present: clear, warm, dry - Neurologic Neurologic: CNII-XII intact, moves all extremities HEART Score - HEART Score Troponin: Troponin T < 0.010 ng/mL (0.00-0.029) 07/16/22 23:57 Results - Labs CBC & Chem 7: 07/27/22 04:54 07/27/22 04:54 Labs: Laboratory Last Values WBC 11.5 K/mm3 (4.5-11.0) H 07/27/22 04:54 RBC 4.59 M/mm3 (3.65-5.03) 07/27/22 04:54 Hgb 13.2 gm/dl (10.1-14.3) 07/27/22 04:54 Hct 41.3 % (30.3-42.9) 07/27/22 04:54 MCV 90 fl (79-97) 07/27/22 04:54 MCH 29 pg (28-32) 07/27/22 04:54 MCHC 32 % (30-34) 07/27/22 04:54 RDW 14.1 % (13.2-15.2) 07/27/22 04:54 Plt Count 271 K/mm3 (140-440) 07/27/22 04:54 Lymph % (Auto) 9.5 % (13.4-35.0) L 07/27/22 04:54 [place] % (Auto) 9.1 % (0.0-7.3) H 07/27/22 04:54 Eos % (Auto) 0.6 % (0.0-4.3) 07/27/22 04:54 Baso % (Auto) 0.4 % (0.0-1.8) 07/27/22 04:54 Lymph # (Auto) 1.1 K/mm3 (1.2-5.4) L 07/27/22 04:54 [place] # (Auto) 1.0 K/mm3 (0.0-0.8) H 07/27/22 04:54 Eos # (Auto) 0.1 K/mm3 (0.0-0.4) 07/27/22 04:54 Baso # (Auto) 0.0 K/mm3 (0.0-0.1) 07/27/22 04:54 Add Manual Diff Complete 07/25/22 04:00 Total Counted 100 07/25/22 04:00 Seg Neutrophils % 80.4 % (40.0-70.0) H 07/27/22 04:54 Seg Neuts % (Manual) 95.0 % (40.0-70.0) H 07/25/22 04:00 Band Neutrophils % 0 % 07/25/22 04:00 Lymphocytes % (Manual) 1.0 % (13.4-35.0) L 07/25/22 04:00 Reactive Lymphs % (Man) 0 % 07/25/22 04:00 Monocytes % (Manual) 4.0 % (0.0-7.3) 07/25/22 04:00 Eosinophils % (Manual) 0 % (0.0-4.3) 07/25/22 04:00 Basophils % (Manual) 0 % (0.0-1.8) 07/25/22 04:00 Metamyelocytes % 0 % 07/25/22 04:00 Myelocytes % 0 % 07/25/22 04:00 Promyelocytes % 0 % 07/25/22 04:00 Blast Cells % 0 % 07/25/22 04:00 Nucleated RBC % Not Reportable 07/25/22 04:00 Seg Neutrophils # 9.3 K/mm3 (1.8-7.7) H 07/27/22 04:54 Seg Neutrophils # Man 10.0 K/mm3 (1.8-7.7) H 07/25/22 04:00 Band Neutrophils # 0.0 K/mm3 07/25/22 04:00 Lymphocytes # (Manual) 0.1 K/mm3 (1.2-5.4) L 07/25/22 04:00 Abs React Lymphs (Man) 0.0 K/mm3 07/25/22 04:00 Monocytes # (Manual) 0.4 K/mm3 (0.0-0.8) 07/25/22 04:00 Eosinophils # (Manual) 0.0 K/mm3 (0.0-0.4) 07/25/22 04:00 Basophils # (Manual) 0.0 K/mm3 (0.0-0.1) 07/25/22 04:00 Metamyelocytes # 0.0 K/mm3 07/25/22 04:00 Myelocytes # 0.0 K/mm3 07/25/22 04:00 Promyelocytes # 0.0 K/mm3 07/25/22 04:00 Blast Cells # 0.0 K/mm3 07/25/22 04:00 WBC Morphology Not Reportable 07/25/22 04:00 WBC Morphology TNR 07/25/22 04:00 Hypersegmented Neuts Not Reportable 07/25/22 04:00 Hyposegmented Neuts Not Reportable 07/25/22 04:00 Hypogranular Neuts Not Reportable 07/25/22 04:00 Smudge Cells Not Reportable 07/25/22 04:00 Toxic Granulation Not Reportable 07/25/22 04:00 Toxic Vacuolation Not Reportable 07/25/22 04:00 Dohle Bodies Not Reportable 07/25/22 04:00 Pel[place]-Huet Anomaly Not Reportable 07/25/22 04:00 [place] Rods Not Reportable 07/25/22 04:00 Platelet Estimate Consistent w auto 07/25/22 04:00 Clumped Platelets Not Reportable 07/25/22 04:00 Plt Clumps, EDTA Not Reportable 07/25/22 04:00 Large Platelets Not Reportable 07/25/22 04:00 Giant Platelets Not Reportable 07/25/22 04:00 Platelet Satelliting Not Reportable 07/25/22 04:00 Plt Morphology Comment Not Reportable 07/25/22 04:00 RBC Morphology Normal 07/25/22 04:00 Dimorphic RBCs Not Reportable 07/25/22 04:00 Polychromasia Not Reportable 07/25/22 04:00 Hypochromasia Not Reportable 07/25/22 04:00 Poikilocytosis Not Reportable 07/25/22 04:00 Anisocytosis Not Reportable 07/25/22 04:00 Microcytosis Not Reportable 07/25/22 04:00 Macrocytosis Not Reportable 07/25/22 04:00 Spherocytes Not Reportable 07/25/22 04:00 Pappenheimer Bodies Not Reportable 07/25/22 04:00 Sickle Cells Not Reportable 07/25/22 04:00 Target Cells Not Reportable 07/25/22 04:00 Tear Drop Cells Not Reportable 07/25/22 04:00 Ovalocytes Not Reportable 07/25/22 04:00 Stomatocytes 1+ 07/18/22 10:02 Helmet Cells Not Reportable 07/25/22 04:00 Con[place] Bodies Not Reportable 07/25/22 04:00 [place] Rings Not Reportable 07/25/22 04:00 [place] Cells Not Reportable 07/25/22 04:00 Bite Cells Not Reportable 07/25/22 04:00 Crenated Cell Not Reportable 07/25/22 04:00 Elliptocytes Not Reportable 07/25/22 04:00 Acanthocytes (Spur) Not Reportable 07/25/22 04:00 Rouleaux Not Reportable 07/25/22 04:00 Hemoglobin C Crystals Not Reportable 07/25/22 04:00 Schistocytes Not Reportable 07/25/22 04:00 Malaria parasites Not Reportable 07/25/22 04:00 Dex Bodies Not Reportable 07/25/22 04:00 Hem Pathologist Commnt No 07/25/22 04:00 PT 13.5 Sec. (12.2-14.9) 07/16/22 23:57 INR 0.93 (0.87-1.13) 07/16/22 23:57 ABG pH 7.444 pH Units (7.350-7.450) 07/18/22 19:50 ABG pCO2 48.7 mm Hg 07/18/22 19:50 ABG pO2 61.8 mm Hg (80.0-90.0) L 07/18/22 19:50 ABG HCO3 32.6 mmol/L (20.0-26.0) H 07/18/22 19:50 ABG O2 Saturation 93.9 % (95.0-99.0) L 07/18/22 19:50 ABG Base Excess 7.4 mmol/L (-2.0-3.0) H 07/18/22 19:50 ABG Hemoglobin 13.0 gm/dl (12.0-16.0) 07/18/22 19:50 ABG Carboxyhemoglobin 1.6 % (0.0-5.0) 07/18/22 19:50 ABG Methemoglobin 0.3 % (0.0-1.5) 07/18/22 19:50 Oxyhemoglobin 92.1 % (95.0-99.0) L 07/18/22 19:50 FiO2 45 % 07/18/22 19:50 Sodium 138 mmol/L (137-145) 07/27/22 04:54 Potassium 3.8 mmol/L (3.6-5.0) 07/27/22 04:54 Chloride 92.2 mmol/L (98-107) L 07/27/22 04:54 Carbon Dioxide 38 mmol/L (22-30) H 07/27/22 04:54 Anion Gap 12 mmol/L 07/27/22 04:54 BUN 30 mg/dL (7-17) H 07/27/22 04:54 Creatinine 0.6 mg/dL (0.6-1.2) 07/27/22 04:54 Estimated GFR > 60 ml/min 07/27/22 04:54 BUN/Creatinine Ratio 50 % 07/27/22 04:54 Glucose 98 mg/dL (65-100) 07/27/22 04:54 POC Glucose 222 mg/dL (70-105) H 07/26/22 20:33 Calcium 8.2 mg/dL (8.4-10.2) L 07/27/22 04:54 Magnesium 2.00 mg/dL (1.7-2.3) 07/20/22 Unknown Total Bilirubin 0.20 mg/dL (0.1-1.2) 07/16/22 23:57 AST 24 units/L (5-40) 07/16/22 23:57 ALT 19 units/L (7-56) 07/16/22 23:57 Alkaline Phosphatase 87 units/L (35-129) 07/16/22 23:57 Total Creatine Kinase 65 units/L (30-135) 07/16/22 23:57 Troponin T < 0.010 ng/mL (0.00-0.029) 07/16/22 23:57 Total Protein 6.8 g/dL (6.3-8.2) 07/16/22 23:57 Albumin 4.0 g/dL (3.9-5) 07/16/22 23:57 Albumin/Globulin Ratio 1.4 % 07/16/22 23:57 Urine Color Straw (Yellow) 07/17/22 06:02 Urine Turbidity Clear (Clear) 07/17/22 06:02 Specific [place] (Man) 1.020 (1.003-1.030) 07/17/22 06:02 Ur Protein (Man) 1+ mg/dL (Negative) 07/17/22 06:02 Ur Ketones (Man) Negative (Negative) 07/17/22 06:02 Ur Nitrite (Man) Negative (Negative) 07/17/22 06:02 Urine Bilirubin (Man) Negative (Negative) 07/17/22 06:02 Leukocyte Esterase (Man) Negative (Negative) 07/17/22 06:02 Urine WBC (Auto) 1.0 /HPF (0.0-6.0) 07/17/22 06:02 Urine RBC (Auto) < 1.0 /HPF (0.0-6.0) 07/17/22 06:02 U Epithel Cells (Auto) 1.0 /HPF (0-13.0) 07/17/22 06:02 Urine RBC (Manual) Trace (Negative) 07/17/22 06:02 Granular Casts 9 /LPF 07/17/22 06:02 Salicylates < 0.3 mg/dL (2.8-20.0) L 07/16/22 23:57 Urine Opiates Screen Negative 07/17/22 06:02 Urine Methadone Screen Negative 07/17/22 06:02 Ur Barbiturates Screen Negative 07/17/22 06:02 Ur Phencyclidine Scrn Negative 07/17/22 06:02 Ur Amphetamines Screen Negative 07/17/22 06:02 U Benzodiazepines Scrn Negative 07/17/22 06:02 Urine Cocaine Screen Negative 07/17/22 06:02 U Marijuana (THC) Screen Negative 07/17/22 06:02 Drugs of Abuse Note Disclamer 07/17/22 06:02 Plasma/Serum Alcohol 0.14 % (0-0.07) H 07/16/22 23:57 SARS-CoV-2 (PCR) Negative (Negative) 07/17/22 12:30 Burks/IV: Voiding Method Bedpan Active Medications - Current Medications Current Medications: Generic Name Dose Route Start Last Admin Trade Name Freq PRN Reason Stop Dose Admin Acetaminophen 650 mg 07/17/22 05:40 07/19/22 10:47 Acetaminophen 325 Mg Tab PO 650 mg Q4H PRN Administration Pain MILD(1-3)/Fever >100.5/GARDNER Albuterol 2.5 mg 07/17/22 05:40 07/18/22 14:49 Albuterol 2.5 Mg/3 Ml Nebu IH 2.5 mg Q3HRT PRN Administration Shortness Of Breath Albuterol/Ipratropium 1 ampul 07/21/22 20:00 07/26/22 21:21 Ipratropium/Albuterol Sulfate 3 Ml Ampul.Neb IH 1 ampul TIDRT MAIKOL Administration Amlodipine Besylate 5 mg 07/24/22 10:00 07/26/22 12:16 Amlodipine 5 Mg Tab PO 5 mg QDAY MAIKOL Administration Budesonide 0.5 mg 07/23/22 20:00 07/26/22 21:21 Budesonide 0.5 Mg/2 Ml Nebu IH 0.5 mg Q12HRT MAIKOL Administration Famotidine 20 mg 07/17/22 10:00 07/26/22 21:41 Famotidine 20 Mg Tab PO 20 mg BID MAIKOL Administration Furosemide 40 mg 07/18/22 18:00 07/27/22 05:53 Furosemide 40 Mg/4 Ml Inj IV 40 mg 0600,1800 MAIKOL Administration Metoprolol Tartrate 50 mg 07/23/22 18:00 07/26/22 21:41 Metoprolol Tartrate 50 Mg Tab PO 50 mg BID MAIKOL Administration Morphine Sulfate 2 mg 07/17/22 05:40 Morphine 2 Mg/1 Ml Inj IV Q4H PRN Pain, Moderate (4-6) Morphine Sulfate 4 mg 07/17/22 05:40 Morphine 4 Mg/1 Ml Inj IV Q4H PRN Pain , Severe (7-10) Ondansetron HCl 4 mg 07/17/22 05:40 Ondansetron 4 Mg/2 Ml Inj IV Q8H PRN Nausea And Vomiting Prednisone 20 mg 07/26/22 10:00 07/26/22 12:16 Prednisone 20 Mg Tab PO 20 mg QDAY MAIKOL Administration Sodium Chloride 10 ml 07/17/22 10:00 07/26/22 21:40 Sodium Chloride 0.9% 10 Ml Flush Syringe IV 10 ml BID MAIKOL Administration Sodium Chloride 10 ml 07/17/22 05:40 07/20/22 05:22 Sodium Chloride 0.9% 10 Ml Flush Syringe IV 10 ml PRN PRN Administration LINE FLUSH Sodium Chloride 1 gm 07/17/22 22:00 07/26/22 21:41 Sodium Chloride 1 Gm Tab PO 1 gm BID MAIKOL Administration Nutrition/Malnutrition Assess - Dietary Evaluation Nutrition/Malnutrition Findings: Nutrition Notes Start: 07/24/22 14:10 Freq: Status: Active Protocol: Document 07/24/22 14:10 JAVAN (Rec: 07/24/22 14:17 JAVAN [id number]) Nutrition Notes Need for Assessment generated from: LOS Initial or Follow up Brief Note Current Diagnosis Heart Failure Other Pertinent Diagnosis COPD exacerbation, s/p fall, obesity hypoventilation syndrome Current Diet Cardiac Labs/Tests Reviewed Pertinent Medications Lasix, Solumedrol, 1g NaCl (Na lab was 118 upon admission) Height 5 ft 3.6 in Weight 129.3 kg [place] Body Weight (kg) 53.63 BMI 49.5 Weight Status Morbidly Obese Subjective/Other Information Pt screened for LOS. She reports a "very good" appetite now that she only wears BiPap at night. She consumed 67% of 3 recorded meals. PMHx includes EtOH dependence. Percent of energy/protein needs met: 68% energy 63% pro Burn Absent Trauma Absent Minimum of two criteria No Is patient on ventilator? No Is Patient Ambulatory and/or Out of Bed No REE-([facility]-confined to bed) 2208.252 Kcal/Kg value to use for calculation 13 Approximate Energy Requirements Using 1681 kcal/Kg Calculation Used for Recommendations Kcal/kg Additional Notes Pro needs 1-1.2g/kg adjBW: 91- 110g/day Fluid needs 1ml/kcal Nutrition Intervention Follow-Up By: 07/31/22 Additional Comments F/U: stable intakes, wt
[2022-07-27] MEDS: amLODIPine 5 MG TAB PO SCH (09:34)
[2022-07-27] MEDS: FAMOTIDINE 20 MG TAB PO SCH ×2 (09:34→21:48)
[2022-07-27] MEDS: METOPROLOL TARTRATE 50 MG TAB PO SCH ×2 (09:34→21:47)
[2022-07-27] MEDS: predniSONE 20 MG TAB PO SCH (09:34)
[2022-07-27] MEDS: SODIUM CHLORIDE 1 GM TAB PO SCH ×2 (09:34→21:47)
[2022-07-27] MEDS: IPRATROPIUM/ALBUTEROL SULFATE 3 ML AMPUL.NEB IH SCH ×3 (10:49→21:07)
--- NOTE | 2022-07-27 12:25 | Progress Note ---
Assessment and Plan 61 y/o morbidly female admitted post ground level fall with hematoma, also with chronic respiratory failure, obesity hypoventilation syndrome and possible COPD exacerbation. 07/27/22: stable pulm status. No objection to discharge. We cannot follow as outpatient as we do not take her insurer in the office. 07/24/22: Same recs as below. Given her coverage, will need to check to see if we can do her PSG as an outpatient. She will need a script for symbicort 80 2 puffs BID as outpatient at discharge. Will continue to follow 1. Pulm-Given smoking history, most likely has COPD but needs formal evaluation. Suggest changing to oral prednisone 60 daily and taper as follows: 60 daily for 4 days, 40 daily for 40 days, 20 daily for 4 days, then 10 daily for 4 days then stop. Will add BID Pulmicort and continue scheduled duoneb therapy. Agree with diuretics as patient needs a daily net negative fluid balance but also needs better BP control. Needs outpatient PSG. She also meets criteria for obesity hypoventilation syndrome as well. She will need a walk test prior to discharge to assess exertion and rest oxygen needs. 2. Ok with NIV therapy for now but currently no working diagnosis to obtain NIV prior to discharge. Would need further work up as outpatient 3. Needs weight loss. Should consider evaluation for gastric bypass as outpatient. Thank you for the consult, will continue to follow along with you. Subjective Date of service: 07/27/22 Principal diagnosis: Ground-level fall metabolic encephalopathy hyponatremia Objective Vital Signs - 12hr 07/27/22 07/27/22 07/27/22 03:39 05:00 07:42 Temperature 97.9 F 98.9 F Pulse Rate 73 65 68 Respiratory 20 Rate Blood Pressure 128/80 127/83 O2 Sat by Pulse 90 91 Oximetry 07/27/22 07/27/22 09:34 10:00 Temperature Pulse Rate 98 H Respiratory Rate Blood Pressure 128/83 O2 Sat by Pulse 95 Oximetry Constitutional: no acute distress, alert, other (morbidly obese with garibay facies) Eyes: non-icteric ENT: oropharynx moist Neck: supple, other (very large in circumference) Effort: normal Ascultation: Bilateral: diminished breath sounds Percussion: Bilateral: not dull Tactile fremitus: Bilateral: normal Cardiovascular: regular rate and rhythm Gastrointestinal: normoactive bowel sounds, soft Extremities: edema (per patient improved compared to admission) CBC and BMP: 07/27/22 04:54 07/27/22 04:54 ABG, PT/INR, D-dimer: ABG ABG pH 7.444 pH Units (7.350-7.450) 07/18/22 19:50 ABG pCO2 48.7 mm Hg 07/18/22 19:50 ABG pO2 61.8 mm Hg (80.0-90.0) L 07/18/22 19:50 ABG O2 Saturation 93.9 % (95.0-99.0) L 07/18/22 19:50 PT/INR, D-dimer PT 13.5 Sec. (12.2-14.9) 07/16/22 23:57 INR 0.93 (0.87-1.13) 07/16/22 23:57 Abnormal lab findings: Abnormal Labs 07/16/22 07/16/22 07/16/22 23:57 23:57 23:57 WBC 18.9 H Lymph % (Auto) [place] % (Auto) Lymph # (Auto) [place] # (Auto) Seg Neutrophils % Seg Neuts % (Manual) 87.0 H Lymphocytes % (Manual) 6.0 L Monocytes % (Manual) Seg Neutrophils # Seg Neutrophils # Man 16.4 H Lymphocytes # (Manual) 1.1 L Monocytes # (Manual) ABG pO2 ABG HCO3 ABG O2 Saturation ABG Base Excess Oxyhemoglobin Sodium Chloride Carbon Dioxide BUN Creatinine Glucose POC Glucose Calcium Magnesium Salicylates < 0.3 L Plasma/Serum Alcohol 0.14 H 07/16/22 07/17/22 07/18/22 23:57 22:18 10:02 WBC Lymph % (Auto) [place] % (Auto) Lymph # (Auto) [place] # (Auto) Seg Neutrophils % Seg Neuts % (Manual) 88.0 H Lymphocytes % (Manual) 4.0 L Monocytes % (Manual) 8.0 H Seg Neutrophils # Seg Neutrophils # Man 9.4 H Lymphocytes # (Manual) 0.4 L Monocytes # (Manual) 0.9 H ABG pO2 ABG HCO3 ABG O2 Saturation ABG Base Excess Oxyhemoglobin Sodium 118 L* 130 L D Chloride 78.2 L 90.9 L Carbon Dioxide 31 H BUN 6 L Creatinine 0.5 L Glucose 114 H 120 H POC Glucose Calcium 8.0 L Magnesium Salicylates Plasma/Serum Alcohol 07/18/22 07/18/22 07/18/22 10:02 18:46 19:50 WBC Lymph % (Auto) [place] % (Auto) Lymph # (Auto) [place] # (Auto) Seg Neutrophils % Seg Neuts % (Manual) Lymphocytes % (Manual) Monocytes % (Manual) Seg Neutrophils # Seg Neutrophils # Man Lymphocytes # (Manual) Monocytes # (Manual) ABG pO2 61.8 L ABG HCO3 32.6 H ABG O2 Saturation 93.9 L ABG Base Excess 7.4 H Oxyhemoglobin 92.1 L Sodium 134 L Chloride 93.2 L Carbon Dioxide 32 H BUN 4 L Creatinine 0.5 L Glucose POC Glucose 124 H Calcium 8.2 L Magnesium Salicylates Plasma/Serum Alcohol 07/19/22 07/20/22 07/20/22 11:40 11:27 Unknown WBC Lymph % (Auto) [place] % (Auto) Lymph # (Auto) [place] # (Auto) Seg Neutrophils % Seg Neuts % (Manual) Lymphocytes % (Manual) Monocytes % (Manual) Seg Neutrophils # Seg Neutrophils # Man Lymphocytes # (Manual) Monocytes # (Manual) ABG pO2 ABG HCO3 ABG O2 Saturation ABG Base Excess Oxyhemoglobin Sodium 134 L Chloride 88.1 L 87.5 L 87.9 L Carbon Dioxide 41 H* D 45 H* 42 H* BUN Creatinine 0.5 L 0.5 L Glucose 195 H 151 H POC Glucose Calcium Magnesium 1.50 L Salicylates Plasma/Serum Alcohol 07/21/22 07/21/22 07/21/22 07:28 12:42 16:39 WBC Lymph % (Auto) [place] % (Auto) Lymph # (Auto) [place] # (Auto) Seg Neutrophils % Seg Neuts % (Manual) Lymphocytes % (Manual) Monocytes % (Manual) Seg Neutrophils # Seg Neutrophils # Man Lymphocytes # (Manual) Monocytes # (Manual) ABG pO2 ABG HCO3 ABG O2 Saturation ABG Base Excess Oxyhemoglobin Sodium Chloride Carbon Dioxide BUN Creatinine Glucose POC Glucose 175 H 237 H 133 H Calcium Magnesium Salicylates Plasma/Serum Alcohol 07/21/22 07/22/22 07/22/22 20:59 05:47 05:47 WBC Lymph % (Auto) [place] % (Auto) Lymph # (Auto) [place] # (Auto) Seg Neutrophils % Seg Neuts % (Manual) 94.0 H Lymphocytes % (Manual) 4.0 L Monocytes % (Manual) Seg Neutrophils # Seg Neutrophils # Man 9.1 H Lymphocytes # (Manual) 0.4 L Monocytes # (Manual) ABG pO2 ABG HCO3 ABG O2 Saturation ABG Base Excess Oxyhemoglobin Sodium Chloride 89.3 L Carbon Dioxide 40 H BUN 24 H Creatinine Glucose 152 H POC Glucose 160 H Calcium Magnesium Salicylates Plasma/Serum Alcohol 07/22/22 07/23/22 07/23/22 07:25 07:44 11:33 WBC Lymph % (Auto) [place] % (Auto) Lymph # (Auto) [place] # (Auto) Seg Neutrophils % Seg Neuts % (Manual) Lymphocytes % (Manual) Monocytes % (Manual) Seg Neutrophils # Seg Neutrophils # Man Lymphocytes # (Manual) Monocytes # (Manual) ABG pO2 ABG HCO3 ABG O2 Saturation ABG Base Excess Oxyhemoglobin Sodium Chloride Carbon Dioxide BUN Creatinine Glucose POC Glucose 156 H 151 H 264 H Calcium Magnesium Salicylates Plasma/Serum Alcohol 07/23/22 07/24/22 07/24/22 16:53 07:47 11:27 WBC Lymph % (Auto) [place] % (Auto) Lymph # (Auto) [place] # (Auto) Seg Neutrophils % Seg Neuts % (Manual) Lymphocytes % (Manual) Monocytes % (Manual) Seg Neutrophils # Seg Neutrophils # Man Lymphocytes # (Manual) Monocytes # (Manual) ABG pO2 ABG HCO3 ABG O2 Saturation ABG Base Excess Oxyhemoglobin Sodium Chloride Carbon Dioxide BUN Creatinine Glucose POC Glucose 134 H 164 H 185 H Calcium Magnesium Salicylates Plasma/Serum Alcohol 07/24/22 07/24/22 07/25/22 16:59 20:30 04:00 WBC Lymph % (Auto) [place] % (Auto) Lymph # (Auto) [place] # (Auto) Seg Neutrophils % Seg Neuts % (Manual) 95.0 H Lymphocytes % (Manual) 1.0 L Monocytes % (Manual) Seg Neutrophils # Seg Neutrophils # Man 10.0 H Lymphocytes # (Manual) 0.1 L Monocytes # (Manual) ABG pO2 ABG HCO3 ABG O2 Saturation ABG Base Excess Oxyhemoglobin Sodium Chloride Carbon Dioxide BUN Creatinine Glucose POC Glucose 154 H 280 H Calcium Magnesium Salicylates Plasma/Serum Alcohol 07/25/22 07/25/22 07/25/22 04:00 07:57 11:25 WBC Lymph % (Auto) [place] % (Auto) Lymph # (Auto) [place] # (Auto) Seg Neutrophils % Seg Neuts % (Manual) Lymphocytes % (Manual) Monocytes % (Manual) Seg Neutrophils # Seg Neutrophils # Man Lymphocytes # (Manual) Monocytes # (Manual) ABG pO2 ABG HCO3 ABG O2 Saturation ABG Base Excess Oxyhemoglobin Sodium Chloride 90.6 L Carbon Dioxide 38 H BUN 32 H Creatinine Glucose 155 H POC Glucose 161 H 231 H Calcium Magnesium Salicylates Plasma/Serum Alcohol 07/25/22 07/25/22 07/26/22 15:16 19:58 15:35 WBC Lymph % (Auto) [place] % (Auto) Lymph # (Auto) [place] # (Auto) Seg Neutrophils % Seg Neuts % (Manual) Lymphocytes % (Manual) Monocytes % (Manual) Seg Neutrophils # Seg Neutrophils # Man Lymphocytes # (Manual) Monocytes # (Manual) ABG pO2 ABG HCO3 ABG O2 Saturation ABG Base Excess Oxyhemoglobin Sodium Chloride Carbon Dioxide BUN Creatinine Glucose POC Glucose 180 H 208 H 161 H Calcium Magnesium Salicylates Plasma/Serum Alcohol 07/26/22 07/27/22 07/27/22 20:33 04:54 04:54 WBC 11.5 H Lymph % (Auto) 9.5 L [place] % (Auto) 9.1 H Lymph # (Auto) 1.1 L [place] # (Auto) 1.0 H Seg Neutrophils % 80.4 H Seg Neuts % (Manual) Lymphocytes % (Manual) Monocytes % (Manual) Seg Neutrophils # 9.3 H Seg Neutrophils # Man Lymphocytes # (Manual) Monocytes # (Manual) ABG pO2 ABG HCO3 ABG O2 Saturation ABG Base Excess Oxyhemoglobin Sodium Chloride 92.2 L Carbon Dioxide 38 H BUN 30 H Creatinine Glucose POC Glucose 222 H Calcium 8.2 L Magnesium Salicylates Plasma/Serum Alcohol 07/27/22 07/27/22 07:44 11:49 WBC Lymph % (Auto) [place] % (Auto) Lymph # (Auto) [place] # (Auto) Seg Neutrophils % Seg Neuts % (Manual) Lymphocytes % (Manual) Monocytes % (Manual) Seg Neutrophils # Seg Neutrophils # Man Lymphocytes # (Manual) Monocytes # (Manual) ABG pO2 ABG HCO3 ABG O2 Saturation ABG Base Excess Oxyhemoglobin Sodium Chloride Carbon Dioxide BUN Creatinine Glucose POC Glucose 112 H 113 H Calcium Magnesium Salicylates Plasma/Serum Alcohol
[2022-07-27] MEDS: BUDESONIDE 0.5 MG/2 ML NEBU IH SCH ×2 (14:57→21:07)
[2022-07-28] MEDS: FUROSEMIDE 40 MG/4 ML INJ IV SCH ×2 (05:42→17:32)
--- NOTE | 2022-07-28 09:05 | Progress Note ---
Assessment and Plan Assessment and plan: 61-year-old male patient with significant past medical history of chronic alcohol use was admitted through emergency room with ground-level fall --Acute hypoxic respiratory failure; requiring BiPAP Requiring supplemental oxygen upon admission Etiology is multifactorial secondary to COPD, diastolic heart failure, OHS, MARTINEZ Continue oxygen titrate O2 sats more than 90% Continue IV diuretics, fluid restriction Continue BiPAP during nights and during daytime as needed Nebulizers, IV steroids, IV antibiotics, diuresis Pulmonary following. Patient currently requiring 3 L O2--patient reports previously being on oxygen July 2021 to November 2021. Patient reports she was on 3 L O2 at that time. However, patient never followed up with pulmonary and did not have her oxygen r enewed. I suspect patient will need to discharge home with oxygen again and have closer outpatient follow-up with pulmonary. -- Acute exacerbation of COPD (chronic obstructive pulmonary disease) Oxygen per nasal cannula 3 L/min. DuoNeb via nebulizer every 4 hours. Albuterol via nebulizer every 4 hours. We will continue the home medication Patient underwent walk test today but resting on room air was noted to be 83% O2 saturation Solu-Medrol discontinued and prednisone taper per pulmonary recommendations as follows 60 daily for 4 days, 40 daily for 40 days, 20 daily for 4 days, then 10 daily for 4 days then stop. Supportive care -- Acute on chronic diastolic congestive heart failure: POA IV diuretics, input output monitoring, daily weight, fluid restriction Cardiology consult if needed Echocardiogram reveals borderline mild concentric left ventricular hypertrophy with left ventricular systolic function normal EF 65% and RVSP 20 mmHg with no apparent pulmonary hypertension --Obesity hypoventilation syndrome; Patient is requiring 3 L O2 during the day/tolerating CPAP at night Continue current management --Possible obstructive sleep apnea; Due to morbid obesity and obesity hypoventilation syndrome Needs outpatient sleep study, need CPAP/BiPAP Pulmonary following --ground-level fall on admission Patient is on fall precaution. CT head without contrast no acute abnormality noted Physical therapy, Occupational Therapy evaluation and management DC needs, --Hyponatremia/improving IV normal saline , closely monitor sodium and other electrolytes Consider sodium chloride oral as needed Nephrology consult if no improvement --Hypomagnesemia; Replenished with mag sulfate 2 g IV Monitor electrolytes -- Chronic alcohol alcohol abuse Thiamine folic acid and multivitamins Strongly advised to quit alcohol intake Patient verbalized understanding Strongly advised behavioral modification and quit alcohol intake -- Traumatic head injury/due to fall Initial CT scan of the head shows no acute intracranial abnormality. Patient is on fall precaution. Will consult physical therapy for evaluation. We will monitor the patient closely --Morbid obesity; BMI 41.7 Counseling done advised diet modification exercise as tolerated and weight reduction, And you are medically stable Advised bariatric surgical evaluation as outpatient for weight reduction program when you are medically stable --DVT prophylaxis Lovenox subcu renal dose Discharge planning per case management Awaiting oxygen set up, and home health care Possible discharge home tomorrow if oxygen is set up and patient is stable Plan of care reviewed with the patient and her nurse I discussed in detail with the patient's sister who is at the bedside History Interval history: I have seen and examined the patient at the bedside patient's chart and medications reviewed Patient feels slightly better Requiring 2 to 3 L of nasal cannula oxygen Hospitalist Physical - Constitutional Vitals: Temp Pulse Resp BP Pulse Ox 97.9 F 67 20 141/80 90 07/28/22 04:20 07/28/22 05:00 07/28/22 04:20 07/28/22 04:20 07/28/22 04:21 General appearance: Present: no acute distress, well-nourished, obese (Morbidly obese), other (On 3 L nasal cannula oxygen) - EENT Eyes: Present: PERRL, EOM intact - Neck Neck: Present: supple, normal ROM - Respiratory Respiratory effort: normal Respiratory: bilateral: diminished, negative: rales, rhonchi, wheezing - Cardiovascular Rhythm: regular Heart Sounds: Present: S1 & S2 - Extremities Extremities: no ischemia, No edema - Abdominal General gastrointestinal: soft, non-tender, non-distended, normal bowel sounds - Integumentary Integumentary: Present: clear, warm - Psychiatric Psychiatric: appropriate mood/affect, cooperative - Neurologic Neurologic: CNII-XII intact, moves all extremities HEART Score - HEART Score Troponin: Troponin T < 0.010 ng/mL (0.00-0.029) 07/16/22 23:57 Results - Labs CBC & Chem 7: 07/27/22 04:54 07/27/22 04:54 Labs: Laboratory Last Values WBC 11.5 K/mm3 (4.5-11.0) H 07/27/22 04:54 RBC 4.59 M/mm3 (3.65-5.03) 07/27/22 04:54 Hgb 13.2 gm/dl (10.1-14.3) 07/27/22 04:54 Hct 41.3 % (30.3-42.9) 07/27/22 04:54 MCV 90 fl (79-97) 07/27/22 04:54 MCH 29 pg (28-32) 07/27/22 04:54 MCHC 32 % (30-34) 07/27/22 04:54 RDW 14.1 % (13.2-15.2) 07/27/22 04:54 Plt Count 271 K/mm3 (140-440) 07/27/22 04:54 Lymph % (Auto) 9.5 % (13.4-35.0) L 07/27/22 04:54 Ogle % (Auto) 9.1 % (0.0-7.3) H 07/27/22 04:54 Eos % (Auto) 0.6 % (0.0-4.3) 07/27/22 04:54 Baso % (Auto) 0.4 % (0.0-1.8) 07/27/22 04:54 Lymph # (Auto) 1.1 K/mm3 (1.2-5.4) L 07/27/22 04:54 Ogle # (Auto) 1.0 K/mm3 (0.0-0.8) H 07/27/22 04:54 Eos # (Auto) 0.1 K/mm3 (0.0-0.4) 07/27/22 04:54 Baso # (Auto) 0.0 K/mm3 (0.0-0.1) 07/27/22 04:54 Add Manual Diff Complete 07/25/22 04:00 Total Counted 100 07/25/22 04:00 Seg Neutrophils % 80.4 % (40.0-70.0) H 07/27/22 04:54 Seg Neuts % (Manual) 95.0 % (40.0-70.0) H 07/25/22 04:00 Band Neutrophils % 0 % 07/25/22 04:00 Lymphocytes % (Manual) 1.0 % (13.4-35.0) L 07/25/22 04:00 Reactive Lymphs % (Man) 0 % 07/25/22 04:00 Monocytes % (Manual) 4.0 % (0.0-7.3) 07/25/22 04:00 Eosinophils % (Manual) 0 % (0.0-4.3) 07/25/22 04:00 Basophils % (Manual) 0 % (0.0-1.8) 07/25/22 04:00 Metamyelocytes % 0 % 07/25/22 04:00 Myelocytes % 0 % 07/25/22 04:00 Promyelocytes % 0 % 07/25/22 04:00 Blast Cells % 0 % 07/25/22 04:00 Nucleated RBC % Not Reportable 07/25/22 04:00 Seg Neutrophils # 9.3 K/mm3 (1.8-7.7) H 07/27/22 04:54 Seg Neutrophils # Man 10.0 K/mm3 (1.8-7.7) H 07/25/22 04:00 Band Neutrophils # 0.0 K/mm3 07/25/22 04:00 Lymphocytes # (Manual) 0.1 K/mm3 (1.2-5.4) L 07/25/22 04:00 Abs React Lymphs (Man) 0.0 K/mm3 07/25/22 04:00 Monocytes # (Manual) 0.4 K/mm3 (0.0-0.8) 07/25/22 04:00 Eosinophils # (Manual) 0.0 K/mm3 (0.0-0.4) 07/25/22 04:00 Basophils # (Manual) 0.0 K/mm3 (0.0-0.1) 07/25/22 04:00 Metamyelocytes # 0.0 K/mm3 07/25/22 04:00 Myelocytes # 0.0 K/mm3 07/25/22 04:00 Promyelocytes # 0.0 K/mm3 07/25/22 04:00 Blast Cells # 0.0 K/mm3 07/25/22 04:00 WBC Morphology Not Reportable 07/25/22 04:00 WBC Morphology TNR 07/25/22 04:00 Hypersegmented Neuts Not Reportable 07/25/22 04:00 Hyposegmented Neuts Not Reportable 07/25/22 04:00 Hypogranular Neuts Not Reportable 07/25/22 04:00 Smudge Cells Not Reportable 07/25/22 04:00 Toxic Granulation Not Reportable 07/25/22 04:00 Toxic Vacuolation Not Reportable 07/25/22 04:00 Dohle Bodies Not Reportable 07/25/22 04:00 Pelger-Huet Anomaly Not Reportable 07/25/22 04:00 Savannah Rods Not Reportable 07/25/22 04:00 Platelet Estimate Consistent w auto 07/25/22 04:00 Clumped Platelets Not Reportable 07/25/22 04:00 Plt Clumps, EDTA Not Reportable 07/25/22 04:00 Large Platelets Not Reportable 07/25/22 04:00 Giant Platelets Not Reportable 07/25/22 04:00 Platelet Satelliting Not Reportable 07/25/22 04:00 Plt Morphology Comment Not Reportable 07/25/22 04:00 RBC Morphology Normal 07/25/22 04:00 Dimorphic RBCs Not Reportable 07/25/22 04:00 Polychromasia Not Reportable 07/25/22 04:00 Hypochromasia Not Reportable 07/25/22 04:00 Poikilocytosis Not Reportable 07/25/22 04:00 Anisocytosis Not Reportable 07/25/22 04:00 Microcytosis Not Reportable 07/25/22 04:00 Macrocytosis Not Reportable 07/25/22 04:00 Spherocytes Not Reportable 07/25/22 04:00 Pappenheimer Bodies Not Reportable 07/25/22 04:00 Sickle Cells Not Reportable 07/25/22 04:00 Target Cells Not Reportable 07/25/22 04:00 Tear Drop Cells Not Reportable 07/25/22 04:00 Ovalocytes Not Reportable 07/25/22 04:00 Stomatocytes 1+ 07/18/22 10:02 Helmet Cells Not Reportable 07/25/22 04:00 Concepcion-Anegam Bodies Not Reportable 07/25/22 04:00 Grover Rings Not Reportable 07/25/22 04:00 Jameson Cells Not Reportable 07/25/22 04:00 Bite Cells Not Reportable 07/25/22 04:00 Crenated Cell Not Reportable 07/25/22 04:00 Elliptocytes Not Reportable 07/25/22 04:00 Acanthocytes (Spur) Not Reportable 07/25/22 04:00 Rouleaux Not Reportable 07/25/22 04:00 Hemoglobin C Crystals Not Reportable 07/25/22 04:00 Schistocytes Not Reportable 07/25/22 04:00 Malaria parasites Not Reportable 07/25/22 04:00 Dex Bodies Not Reportable 07/25/22 04:00 Hem Pathologist Commnt No 07/25/22 04:00 PT 13.5 Sec. (12.2-14.9) 07/16/22 23:57 INR 0.93 (0.87-1.13) 07/16/22 23:57 ABG pH 7.444 pH Units (7.350-7.450) 07/18/22 19:50 ABG pCO2 48.7 mm Hg 07/18/22 19:50 ABG pO2 61.8 mm Hg (80.0-90.0) L 07/18/22 19:50 ABG HCO3 32.6 mmol/L (20.0-26.0) H 07/18/22 19:50 ABG O2 Saturation 93.9 % (95.0-99.0) L 07/18/22 19:50 ABG Base Excess 7.4 mmol/L (-2.0-3.0) H 07/18/22 19:50 ABG Hemoglobin 13.0 gm/dl (12.0-16.0) 07/18/22 19:50 ABG Carboxyhemoglobin 1.6 % (0.0-5.0) 07/18/22 19:50 ABG Methemoglobin 0.3 % (0.0-1.5) 07/18/22 19:50 Oxyhemoglobin 92.1 % (95.0-99.0) L 07/18/22 19:50 FiO2 45 % 07/18/22 19:50 Sodium 138 mmol/L (137-145) 07/27/22 04:54 Potassium 3.8 mmol/L (3.6-5.0) 07/27/22 04:54 Chloride 92.2 mmol/L (98-107) L 07/27/22 04:54 Carbon Dioxide 38 mmol/L (22-30) H 07/27/22 04:54 Anion Gap 12 mmol/L 07/27/22 04:54 BUN 30 mg/dL (7-17) H 07/27/22 04:54 Creatinine 0.6 mg/dL (0.6-1.2) 07/27/22 04:54 Estimated GFR > 60 ml/min 07/27/22 04:54 BUN/Creatinine Ratio 50 % 07/27/22 04:54 Glucose 98 mg/dL (65-100) 07/27/22 04:54 POC Glucose 114 mg/dL (70-105) H 07/28/22 07:46 Calcium 8.2 mg/dL (8.4-10.2) L 07/27/22 04:54 Magnesium 2.00 mg/dL (1.7-2.3) 07/20/22 Unknown Total Bilirubin 0.20 mg/dL (0.1-1.2) 07/16/22 23:57 AST 24 units/L (5-40) 07/16/22 23:57 ALT 19 units/L (7-56) 07/16/22 23:57 Alkaline Phosphatase 87 units/L (35-129) 07/16/22 23:57 Total Creatine Kinase 65 units/L (30-135) 07/16/22 23:57 Troponin T < 0.010 ng/mL (0.00-0.029) 07/16/22 23:57 Total Protein 6.8 g/dL (6.3-8.2) 07/16/22 23:57 Albumin 4.0 g/dL (3.9-5) 07/16/22 23:57 Albumin/Globulin Ratio 1.4 % 07/16/22 23:57 Urine Color Straw (Yellow) 07/17/22 06:02 Urine Turbidity Clear (Clear) 07/17/22 06:02 Specific [place] (Man) 1.020 (1.003-1.030) 07/17/22 06:02 Ur Protein (Man) 1+ mg/dL (Negative) 07/17/22 06:02 Ur Ketones (Man) Negative (Negative) 07/17/22 06:02 Ur Nitrite (Man) Negative (Negative) 07/17/22 06:02 Urine Bilirubin (Man) Negative (Negative) 07/17/22 06:02 Leukocyte Esterase (Man) Negative (Negative) 07/17/22 06:02 Urine WBC (Auto) 1.0 /HPF (0.0-6.0) 07/17/22 06:02 Urine RBC (Auto) < 1.0 /HPF (0.0-6.0) 07/17/22 06:02 U Epithel Cells (Auto) 1.0 /HPF (0-13.0) 07/17/22 06:02 Urine RBC (Manual) Trace (Negative) 07/17/22 06:02 Granular Casts 9 /LPF 07/17/22 06:02 Salicylates < 0.3 mg/dL (2.8-20.0) L 07/16/22 23:57 Urine Opiates Screen Negative 07/17/22 06:02 Urine Methadone Screen Negative 07/17/22 06:02 Ur Barbiturates Screen Negative 07/17/22 06:02 Ur Phencyclidine Scrn Negative 07/17/22 06:02 Ur Amphetamines Screen Negative 07/17/22 06:02 U Benzodiazepines Scrn Negative 07/17/22 06:02 Urine Cocaine Screen Negative 07/17/22 06:02 U Marijuana (THC) Screen Negative 07/17/22 06:02 Drugs of Abuse Note Disclamer 07/17/22 06:02 Plasma/Serum Alcohol 0.14 % (0-0.07) H 07/16/22 23:57 SARS-CoV-2 (PCR) Negative (Negative) 07/17/22 12:30 Burks/IV: Voiding Method External Female Catheter Active Medications - Current Medications Current Medications: Generic Name Dose Route Start Last Admin Trade Name Freq PRN Reason Stop Dose Admin Acetaminophen 650 mg 07/17/22 05:40 07/19/22 10:47 Acetaminophen 325 Mg Tab PO 650 mg Q4H PRN Administration Pain MILD(1-3)/Fever >100.5/GARDNER Albuterol 2.5 mg 07/17/22 05:40 07/18/22 14:49 Albuterol 2.5 Mg/3 Ml Nebu IH 2.5 mg Q3HRT PRN Administration Shortness Of Breath Albuterol/Ipratropium 1 ampul 07/21/22 20:00 07/27/22 21:07 Ipratropium/Albuterol Sulfate 3 Ml Ampul.Neb IH 1 ampul TIDRT MAIKOL Administration Amlodipine Besylate 5 mg 07/24/22 10:00 07/27/22 09:34 Amlodipine 5 Mg Tab PO 5 mg QDAY MAIKOL Administration Budesonide 0.5 mg 07/23/22 20:00 07/27/22 21:07 Budesonide 0.5 Mg/2 Ml Nebu IH 0.5 mg Q12HRT MAIKOL Administration Famotidine 20 mg 07/17/22 10:00 07/27/22 21:48 Famotidine 20 Mg Tab PO 20 mg BID MAIKOL Administration Furosemide 40 mg 07/18/22 18:00 07/28/22 05:42 Furosemide 40 Mg/4 Ml Inj IV 40 mg 0600,1800 MAIKOL Administration Metoprolol Tartrate 50 mg 07/23/22 18:00 07/27/22 21:47 Metoprolol Tartrate 50 Mg Tab PO 50 mg BID MAIKOL Administration Morphine Sulfate 2 mg 07/17/22 05:40 Morphine 2 Mg/1 Ml Inj IV Q4H PRN Pain, Moderate (4-6) Morphine Sulfate 4 mg 07/17/22 05:40 Morphine 4 Mg/1 Ml Inj IV Q4H PRN Pain , Severe (7-10) Ondansetron HCl 4 mg 07/17/22 05:40 Ondansetron 4 Mg/2 Ml Inj IV Q8H PRN Nausea And Vomiting Prednisone 20 mg 07/26/22 10:00 07/27/22 09:34 Prednisone 20 Mg Tab PO 20 mg QDAY MAIKOL Administration Sodium Chloride 10 ml 07/17/22 10:00 07/27/22 21:48 Sodium Chloride 0.9% 10 Ml Flush Syringe IV 10 ml BID MAIKOL Administration Sodium Chloride 10 ml 07/17/22 05:40 07/20/22 05:22 Sodium Chloride 0.9% 10 Ml Flush Syringe IV 10 ml PRN PRN Administration LINE FLUSH Sodium Chloride 1 gm 07/17/22 22:00 07/27/22 21:47 Sodium Chloride 1 Gm Tab PO 1 gm BID MAIKOL Administration Nutrition/Malnutrition Assess - Dietary Evaluation Nutrition/Malnutrition Findings: Nutrition Notes Start: 07/24/22 14:10 Freq: Status: Active Protocol: Document 07/24/22 14:10 JAVAN (Rec: 07/24/22 14:17 [facility] [id number]) Nutrition Notes Need for Assessment generated from: LOS Initial or Follow up Brief Note Current Diagnosis Heart Failure Other Pertinent Diagnosis COPD exacerbation, s/p fall, obesity hypoventilation syndrome Current Diet Cardiac Labs/Tests Reviewed Pertinent Medications Lasix, Solumedrol, 1g NaCl (Na lab was 118 upon admission) Height 5 ft 3.6 in Weight 129.3 kg [place] Body Weight (kg) 53.63 BMI 49.5 Weight Status Morbidly Obese Subjective/Other Information Pt screened for LOS. She reports a "very good" appetite now that she only wears BiPap at night. She consumed 67% of 3 recorded meals. PMHx includes EtOH dependence. Percent of energy/protein needs met: 68% energy 63% pro Burn Absent Trauma Absent Minimum of two criteria No Is patient on ventilator? No Is Patient Ambulatory and/or Out of Bed No REE-([facility]-confined to bed) 2208.252 Kcal/Kg value to use for calculation 13 Approximate Energy Requirements Using 1681 kcal/Kg Calculation Used for Recommendations Kcal/kg Additional Notes Pro needs 1-1.2g/kg adjBW: 91- 110g/day Fluid needs 1ml/kcal Nutrition Intervention Follow-Up By: 07/31/22 Additional Comments F/U: stable intakes, wt
[2022-07-28] MEDS: IPRATROPIUM/ALBUTEROL SULFATE 3 ML AMPUL.NEB IH SCH ×3 (09:15→21:19)
[2022-07-28] MEDS: BUDESONIDE 0.5 MG/2 ML NEBU IH SCH ×2 (09:15→21:19)
[2022-07-28] MEDS: amLODIPine 5 MG TAB PO SCH (10:19)
[2022-07-28] MEDS: METOPROLOL TARTRATE 50 MG TAB PO SCH ×2 (10:19→22:23)
[2022-07-28] MEDS: predniSONE 20 MG TAB PO SCH (10:19)
[2022-07-28] MEDS: SODIUM CHLORIDE 1 GM TAB PO SCH ×2 (10:19→22:29)
[2022-07-28] MEDS: FAMOTIDINE 20 MG TAB PO SCH ×2 (10:19→22:23)
--- NOTE | 2022-07-28 15:02 | Discharge Summary ---
Providers - Providers Date of Admission: 07/17/22 05:40 Date of discharge: 07/28/22 Attending physician: JANET MCCALL 07/17/22 05:52 Physical Therapy Evaluation and Treat [CONS] Routine Comment: Reason For Exam: fall Primary care physician: NADER WAYNE Hospitalization Condition: Stable Hospital course: 61-year-old male patient with significant past medical history of chronic alcohol use was admitted through emergency room with ground-level fall --Acute hypoxic respiratory failure; requiring BiPAP Requiring supplemental oxygen upon admission Etiology is multifactorial secondary to COPD, diastolic heart failure, OHS, MARTINEZ Continue oxygen titrate O2 sats more than 90% Continue IV diuretics, fluid restriction Continue BiPAP during nights and during daytime as needed Nebulizers, IV steroids, IV antibiotics, diuresis Pulmonary following. Patient currently requiring 3 L O2--patient reports previously being on oxygen July 2021 to November 2021. Patient reports she was on 3 L O2 at that time. However, patient never followed up with pulmonary and did not have her oxygen renewed. I suspect patient will need to discharge home with oxygen again and have closer outpatient follow-up with pulmonary. -- Acute exacerbation of COPD (chronic obstructive pulmonary disease) Oxygen per nasal cannula 3 L/min. DuoNeb via nebulizer every 4 hours. Albuterol via nebulizer every 4 hours. We will continue the home medication Patient underwent walk test today but resting on room air was noted to be 83% O2 saturation Solu-Medrol discontinued and prednisone taper per pulmonary recommendations as follows 60 daily for 4 days, 40 daily for 40 days, 20 daily for 4 days, then 10 daily for 4 days then stop. Supportive care -- Acute on chronic diastolic congestive heart failure: POA IV diuretics, input output monitoring, daily weight, fluid restriction Cardiology consult if needed Echocardiogram reveals borderline mild concentric left ventricular hypertrophy with left ventricular systolic function normal EF 65% and RVSP 20 mmHg with no a pparent pulmonary hypertension --Obesity hypoventilation syndrome; Patient is requiring 3 L O2 during the day/tolerating CPAP at night Continue current management --Possible obstructive sleep apnea; Due to morbid obesity and obesity hypoventilation syndrome Needs outpatient sleep study, need CPAP/BiPAP Pulmonary following --ground-level fall on admission Patient is on fall precaution. CT head without contrast no acute abnormality noted Physical therapy, Occupational Therapy evaluation and management DC needs, --Hyponatremia/improving IV normal saline , closely monitor sodium and other electrolytes Consider sodium chloride oral as needed Nephrology consult if no improvement --Hypomagnesemia; Replenished with mag sulfate 2 g IV Monitor electrolytes -- Chronic alcohol alcohol abuse Thiamine folic acid and multivitamins Strongly advised to quit alcohol intake Patient verbalized understanding Strongly advised behavioral modification and quit alcohol intake -- Traumatic head injury/due to fall Initial CT scan of the head shows no acute intracranial abnormality. Patient is on fall precaution. Will consult physical therapy for evaluation. We will monitor the patient closely --Morbid obesity; BMI 41.7 Counseling done advised diet modification exercise as tolerated and weight reduction, And you are medically stable Advised bariatric surgical evaluation as outpatient for weight reduction program when you are medically stable --DVT prophylaxis Lovenox subcu renal dose Discharge planning per case management Awaiting oxygen set up, and home health care Possible discharge home tomorrow if oxygen is set up and patient is stable Plan of care reviewed with the patient and her nurse I discussed in detail with the patient's sister who is at the bedside Disposition: 06 HOME HEALTH CARE SERVICE Final Discharge Diagnosis (Prints w/discharge instructions): Acute hypoxic respiratory failure requiring BiPAP. Acute exacerbation of COPD. Acute on chronic diastolic congestive heart failure. Obesity hypoventilation syndrome. Possible obstructive sleep apnea. Ground-level fall on admission. Hyponatremia improving. Chronic alcohol abuse. Traumatic head injury due to fall. Morbid obesity BMI 47.6 Time spent for discharge: 35 min Core Measure Documentation - Palliative Care Palliative Care/ Comfort Measures: Not Applicable - Core Measures Any of the following diagnoses?: none Exam - Constitutional Vitals: Temp Pulse Resp BP Pulse Ox 97.9 F 81 18 125/65 91 07/28/22 04:20 07/28/22 10:18 07/28/22 10:18 07/28/22 10:18 07/28/22 10:18 General appearance: Present: no acute distress, well-nourished, obese (Morbidly obese) - EENT Eyes: Present: PERRL, EOM intact - Neck Neck: Present: supple, normal ROM - Respiratory Respiratory effort: normal Respiratory: bilateral: diminished, rhonchi, negative: rales, wheezing - Cardiovascular Rhythm: regular Heart Sounds: Present: S1 & S2 - Extremities Extremities: no ischemia, No edema - Abdominal General gastrointestinal: Present: soft, non-tender, non-distended, normal bowel sounds - Integumentary Integumentary: Present: clear, warm - Musculoskeletal Musculoskeletal: strength equal bilaterally, generalized weakness - Psychiatric Psychiatric: appropriate mood/affect, cooperative - Neurologic Neurologic: moves all extremities Plan Activity: advance as tolerated, fall precautions Diet: other (Cardiac diet) Special Instructions: smoking cessation, physical therapy (Home health PT) Durable Medical Equipment Needed Upon Discharge: Walker-Rolling, Oxygen (Home oxygen 3 L via nasal cannula) Additional Instructions: If you have worsening symptoms contact MD or go to the nearest emergency room as needed. Follow-up primary care physician in 1 week, private compliance tester Dr. Early in 10 days. Strongly advised to comply with medications, diet, follow-up visits, oxygen as needed. Advised diet modification, exercise as tolerated and weight reduction when you are medically stable . As tolerated. Smoking cessation advised. Advised to quit alcohol intake Follow up with: NADER WAYNE MD [Primary Care Provider] - 3-5 Days LUPE EARLY MD [Staff Physician] - 10 Days Prescriptions: amLODIPine 5 mg PO QDAY #30 tablet predniSONE [Deltasone] 20 mg PO QDAY #21 tab Furosemide [Lasix TAB] 40 mg PO QDAY #30 tablet Metoprolol [Lopressor TAB] 50 mg PO BID #60 tablet Famotidine [Pepcid] 20 mg PO BID #30 tablet Budesonide [Pulmicort Respules] 0.5 mg IH Q12HRT #30 nebu oxyCODONE [roxiCODONE] 5 mg PO Q6H PRN #7 tablet PRN Reason: Pain
[2022-07-29] MEDS: FUROSEMIDE 40 MG/4 ML INJ IV SCH (05:28)
[2022-07-29] MEDS: BUDESONIDE 0.5 MG/2 ML NEBU IH SCH (09:13)
[2022-07-29] MEDS: IPRATROPIUM/ALBUTEROL SULFATE 3 ML AMPUL.NEB IH SCH ×2 (09:13→15:13)
[2022-07-29] MEDS: predniSONE 20 MG TAB PO SCH (10:57)
[2022-07-29] MEDS: amLODIPine 5 MG TAB PO SCH (10:57)
[2022-07-29] MEDS: FAMOTIDINE 20 MG TAB PO SCH (10:57)
[2022-07-29] MEDS: METOPROLOL TARTRATE 50 MG TAB PO SCH (10:57)
[2022-07-29] MEDS: SODIUM CHLORIDE 1 GM TAB PO SCH (10:57)
[2022-07-29 12:38] VITALS: BP 122/82
== END 2022-07-29 18:00 | disposition home health service (06) | DRG 291 ==
LOC: ED 22:33 → 4A 07-17 05:40
PROVIDERS: ADMIT Hospitalist; ATTEND Internal Medicine
PROC: 4A033R1 Measurement of Arterial Saturation, Peripheral, Percutaneous Approach (ICD-10-PCS; principal; 2022-07-18)
PROC: 5A09557 Assistance with Respiratory Ventilation, Greater than 96 Consecutive Hours, Continuous Positive Airway Pressure (ICD-10-PCS; 2022-07-18)
PROC: 5A09457 Assistance with Respiratory Ventilation, 24-96 Consecutive Hours, Continuous Positive Airway Pressure (ICD-10-PCS; 2022-07-26)
PROC: 5A09357 Assistance with Respiratory Ventilation, Less than 24 Consecutive Hours, Continuous Positive Airway Pressure (ICD-10-PCS; 2022-07-29)
DX: I11.0 Hypertensive heart disease with heart failure (principal); I50.33 Acute on chronic diastolic (congestive) heart failure; J96.01 Acute respiratory failure with hypoxia; J44.1 Chronic obstructive pulmonary disease with (acute) exacerbation; E87.1 Hypo-osmolality and hyponatremia; E66.2 Morbid (severe) obesity with alveolar hypoventilation; Z68.41 Body mass index [BMI] 40.0-44.9, adult; Z20.822 Contact with and (suspected) exposure to COVID-19; W18.39XA Other fall on same level, initial encounter; Y93.89 Activity, other specified; Y92.89 Other specified places as the place of occurrence of the external cause; Y99.8 Other external cause status; Z90.49 Acquired absence of other specified parts of digestive tract; F10.10 Alcohol abuse, uncomplicated; Y90.9 Presence of alcohol in blood, level not specified; S09.90XA Unspecified injury of head, initial encounter; E83.42 Hypomagnesemia; Z82.49 Family history of ischemic heart disease and other diseases of the circulatory system; Z88.2 Allergy status to sulfonamides; Z88.8 Allergy status to other drugs, medicaments and biological substances
CPT/HCPCS: 36415; 70450; 71045; 80048; 80053; 80307; 80320; 81001; 82550; 82803; 82962; 83735; 84484; 85007; 85025; 85610; 93005; 93306; 94640; 94660; 94760; 96374; 99285; G0378; C8929; G0480; J1940; J2920; J3475; J7030; U0003